=== PATIENT | male | born 1955 | race African-American/Black ===

== ENCOUNTER 2019-05-19 10:00 | Inpatient (IN) | payer MEDICARE, MEDICAID ==
[~2019-05-19] VITALS: Ht 170.2 cm; Wt 88.6 kg
[2019-05-19] MEDS ORDERED: SODIUM CHLORIDE 0.9% 1000ML BAG (SEPSIS BOLUS) IV ONE (10:30)
[2019-05-19 10:57] LABS: HEMATOCRIT. 32.6 % (42.0-52.0); HEMOGLOBIN. 11.2 g/dL (14.0-18.0); MEAN CORPUSCULAR HEMOGLOBIN 31.1 pg (28.0-32.0); MEAN CORPUSCULAR VOLUME 90.4 fL (80.0-94.0); MEAN PLATELET VOLUME 8.5 fl (7.4-10.4); PLATELET 260 x1000/uL (130-400); RED BLOOD CELL COUNT 3.61 mill/uL (4.7-6.1); RED CELL DISTRIBUTION WIDTH 15.2 % (11.6-14.6)
[2019-05-19 11:02] LABS: CHLORIDE 111 mEq/L (98-107)
[2019-05-19] MEDS ORDERED: PERMETHRIN 5% CREAM 60GM TOP ONE (11:15)
[2019-05-19 11:23] LABS: PLATELET ESTIMATE NORMAL
[2019-05-19] MEDS ORDERED: ONDANSETRON HCL 4MG/2ML INJ IV PRN (11:30)
[2019-05-19 11:45] LABS: CLARITY URINE CLEAR (CLEAR); COLOR URINE YELLOW (YELLOW); KETONES URINE NEGATIVE (NEGATIVE); LEUKOCYTE ESTERASE URINE NEGATIVE (NEGATIVE); NITRITE URINE NEGATIVE (NEGATIVE); OCCULT BLOOD URINE 1+ (NEGATIVE); PROTEIN URINE NEGATIVE (NEGATIVE); SPECIFIC GRAVITY URINE 1.009 (1.005-1.030); UROBILINOGEN URINE 0.2 E.U./dL (0.2-1.0)
[2019-05-19] MEDS ORDERED: MAGNESIUM 1 G PREMIX 100 ML IV ONE (12:00)
[2019-05-19] MEDS ORDERED: LEVOFLOXACIN 500MG PREMIX 100 ML IV ONE (12:00)
[2019-05-19 12:06] LABS: *BARBITURATES SCREEN URINE NEGATIVE (NEGATIVE); *BENZODIAZEPINES SCREEN URINE NEGATIVE (NEGATIVE); *COCAINE SCREEN URINE NEGATIVE (NEGATIVE)
[2019-05-19 12:07] LABS: *AMPHETAMINES SCREEN URINE NEGATIVE (NEGATIVE); CANNABINOID URINE SCREEN NEGATIVE (NEGATIVE); METHADONE URINE SCREEN NEGATIVE (NEGATIVE); OPIATES URINE SCREEN NEGATIVE (NEGATIVE); PHENCYCLIDINE URINE SCREEN NEGATIVE (NEGATIVE)
[2019-05-19] MEDS ORDERED: PIPERACILLIN/TAZ 2.25G PREMIX 50 ML IV ONE (14:00)
[2019-05-19 15:00] VITALS: BP 133/76
[2019-05-19] MEDS: DEXT 5%/0.45% NACL 1000ML 1,000 ML IV SCH (15:43)
[2019-05-19 16:00] VITALS: BP 133/76
[2019-05-19] MEDS ORDERED: HALOPERIDOL LACTATE 5MG/ML VIAL IM PRN (16:30)
[2019-05-19] MEDS ORDERED: LEVOFLOXACIN 500MG PREMIX 100 ML IV SCH (17:00)
[2019-05-19] MEDS ORDERED: MAGNESIUM 1 G PREMIX 100 ML IV NR (17:30)
[2019-05-19 18:00] VITALS: BP 134/55
[2019-05-19 20:00] VITALS: BP 134/74
[2019-05-19] MEDS: PIPERACILLIN/TAZOBACTAM 3.375 G in DEXT 5% WATER 100 ML IV SCH (20:39)
[2019-05-19] MEDS: ACETAMINOPHEN 650MG SUPP PR PRN (21:59)
[2019-05-19 22:00] VITALS: BP 181/66
[2019-05-20] VITALS (13 sets, daily range): BP systolic 140–189; BP diastolic 65–106
[2019-05-20] MEDS: PIPERACILLIN/TAZOBACTAM 3.375 G in DEXT 5% WATER 100 ML IV SCH ×3 (00:08→12:12)
[2019-05-20] MEDS: ACETYLCYSTEINE 100MG/ML 10% VIAL 4ML INH SCH (00:21)
[2019-05-20] MEDS ORDERED: CLON0.5T23 MT (03:19)
[2019-05-20] MEDS ORDERED: BENZ1TAB7 MT (03:19)
[2019-05-20] MEDS ORDERED: FERR325T6 MT (03:19)
[2019-05-20] MEDS ORDERED: OMEP20CA5 MT (03:19)
[2019-05-20] MEDS ORDERED: ISOS30TA6 MT (03:19)
[2019-05-20] MEDS ORDERED: LITH300C3 MT (03:19)
[2019-05-20] MEDS ORDERED: FLUT15.88 BOTHNSTRLS (03:19)
[2019-05-20] MEDS ORDERED: METF-416 MT (03:19)
[2019-05-20] MEDS ORDERED: GEMF600T5 MT (03:19)
[2019-05-20] MEDS ORDERED: OMEP20TA2 MT (03:19)
[2019-05-20] MEDS ORDERED: HALO5TAB MT (03:19)
[2019-05-20] MEDS ORDERED: DOCU250C69 MT (03:19)
[2019-05-20] MEDS ORDERED: CLON0.2T MT (03:19)
[2019-05-20] MEDS ORDERED: GABA-531 MT (03:19)
[2019-05-20] MEDS: LORAZEPAM 2MG/ML CPJ IV PRN ×3 (05:38→18:04)
[2019-05-20] MEDS: DEXT 5%/0.45% NACL 1000ML 1,000 ML IV SCH ×2 (06:21→23:55)
[2019-05-20 06:26] LABS: CHLORIDE 118 mEq/L (98-107)
[2019-05-20 06:29] LABS: BASOPHILS % 0.1 % (0.0-2.0); EOSINOPHILS % 0.6 % (0.0-5.0); HEMATOCRIT. 36.7 % (42.0-52.0); HEMOGLOBIN. 12.4 g/dL (14.0-18.0); LYMPHOCYTES % 11.2 % (20.0-50.0); MEAN CORPUSCULAR HEMOGLOBIN 30.6 pg (28.0-32.0); MEAN CORPUSCULAR VOLUME 90.8 fL (80.0-94.0); MEAN PLATELET VOLUME 8.8 fl (7.4-10.4); MONOCYTES % 7.1 % (2.0-8.0); PLATELET 272 x1000/uL (130-400); RED BLOOD CELL COUNT 4.04 mill/uL (4.7-6.1)
[2019-05-20] MEDS: IPRATROPIUM BROMIDE (0.02%) 0.5MG/2.5ML NEB HHN SCH ×3 (11:22→21:32)
[2019-05-20] MEDS: ACETAMINOPHEN 650MG SUPP PR PRN (12:12)
[2019-05-20] MEDS: FUROSEMIDE 40MG/4ML VIAL IVP SCH (13:40)
[2019-05-20] MEDS ORDERED: MAGNESIUM 1 G PREMIX 100 ML IV NR (14:00)
[2019-05-20] MEDS: CLONIDINE HCL 0.2MG/24HR PATCH TD SCH (15:34)
[2019-05-20 16:02] LABS: BG BASE EXCESS -5.5 mmol/L (-2.0-2.0); BG CARBOXYHEMOGLOBIN 0.2 % (0.5-1.5); BG DEOXYHEMOGLOBIN 7.7 % (0.0-5.0); BG FRACTION INSPIRED OXYGEN 32; BG HCO3 ACT 15.5 mmol/L (22.0-26.0); BG METHEMOGLOBIN 0.2 % (0.0-1.5); BG OXYGEN SATURATION 92.3 % (92.0-98.5); BG OXYHEMOGLOBIN 91.9 % (94.0-97.0); BG PH 7.487 (7.350-7.450); BG PO2 57.3 mmHg (75.0-100.0); BG SAMPLE SITE RIGHT RADIAL; BG TOTAL HEMOGLOBIN 14.1 g/dL (12.0-18.0); BG VENT MODE NASAL CANNULA
[2019-05-20] MEDS: HYDRALAZINE 20MG/ML VIAL IV PRN (16:13)
[2019-05-20] MEDS ORDERED: VANCOMYCIN 1500MG in DEXTROSE 5% WATER 250ML IV NR (17:30)
[2019-05-20] MEDS ORDERED: LEVOFLOXACIN 500MG PREMIX 100 ML IV SCH (18:00)
[2019-05-20] MEDS ORDERED: CEFTRIAXONE 2 G PREMIX 50 ML IV SCH (21:00)
[2019-05-20] MEDS: LABETALOL 5MG/ML SYR 20 MG/4 ML SYRINGE IV PRN (21:02)
[2019-05-20] MEDS ORDERED: THIAMINE HCL 100 MG in SODIUM CHLORIDE 0.9% 49 ML IV NR (21:30)
[2019-05-20] MEDS: CEFTRIAXONE 2 G in DEXTROSE 5% WATER 50 ML IV SCH (21:36)
[2019-05-20] MEDS: ENOXAPARIN 30MG/0.3ML SYR SUBCUT SCH (21:37)
[2019-05-20] MEDS: AMPICILLIN 2,000 MG in SODIUM CHLORIDE 0.9% 100 ML IV SCH (22:49)
[2019-05-21] VITALS (12 sets, daily range): BP systolic 108–178; BP diastolic 48–131
[2019-05-21] MEDS: IPRATROPIUM BROMIDE (0.02%) 0.5MG/2.5ML NEB HHN SCH ×6 (00:21→20:37)
[2019-05-21] MEDS: HALOPERIDOL LACTATE 5MG/ML VIAL IM PRN ×2 (00:38→21:32)
[2019-05-21] MEDS: AMPICILLIN 2,000 MG in SODIUM CHLORIDE 0.9% 100 ML IV SCH ×3 (05:31→21:34)
[2019-05-21] MEDS ORDERED: VANCOMYCIN 1250MG in DEXTROSE 5% WATER 250ML IV SCH (06:00)
[2019-05-21] MEDS: HYDRALAZINE 20MG/ML VIAL IV PRN ×2 (06:06→13:15)
[2019-05-21] MEDS: ACETAMINOPHEN 650MG SUPP PR PRN ×2 (06:19→17:08)
[2019-05-21 06:49] LABS: HEMOGLOBIN. 13.5 g/dL (14.0-18.0); MEAN PLATELET VOLUME 9.5 fl (7.4-10.4); PLATELET 350 x1000/uL (130-400); RED CELL DISTRIBUTION WIDTH 14.6 % (11.6-14.6)
[2019-05-21 07:05] LABS: CHLORIDE 124 mEq/L (98-107)
[2019-05-21 07:36] LABS: CREATINE KINASE 1122 IU/L (39-308)
[2019-05-21] MEDS: ACETYLCYSTEINE 100MG/ML 10% VIAL 4ML INH SCH ×3 (08:00→16:23)
[2019-05-21] MEDS: ENOXAPARIN 30MG/0.3ML SYR SUBCUT SCH ×2 (08:50→20:34)
[2019-05-21] MEDS: CEFTRIAXONE 2 G in DEXTROSE 5% WATER 50 ML IV SCH ×2 (08:50→20:34)
[2019-05-21] MEDS: LABETALOL 5MG/ML SYR 20 MG/4 ML SYRINGE IV PRN ×2 (08:50→17:46)
[2019-05-21] MEDS: FUROSEMIDE 40MG/4ML VIAL IVP SCH (08:50)
[2019-05-21 10:05] LABS: T4 FREE 1.19 ng/dL (0.76-1.46)
[2019-05-21 12:49] LABS: PLATELET ESTIMATE NORMAL
[2019-05-21] MEDS: DEXT 5% WATER + KCL 20MEQ/L 1,000 ML IV SCH (12:53)
[2019-05-21 16:34] LABS: CREATINE KINASE MB FRACTION 2.9 ng/mL (0.5-3.6)
[2019-05-21] MEDS ORDERED: ASPIRIN 81MG TABLET PO SCH (18:00)
[2019-05-21 18:40] LABS: CREATINE KINASE MB FRACTION 1.7 ng/mL (0.5-3.6)
[2019-05-21] MEDS: ASPIRIN 81MG TABLET NG SCH (18:55)
[2019-05-21] MEDS ORDERED: SODIUM BICARBONATE 8.4% 1 MEQ/ML 50ML SYR IV NR (19:00)
[2019-05-21] MEDS: LORAZEPAM 2MG/ML CPJ IV PRN (20:35)
[2019-05-21] MEDS: METOPROLOL TARTRATE 25MG TABLET PO SCH (20:41)
[2019-05-21] MEDS ORDERED: ATORVASTATIN CALCIUM 10MG TABLET PO SCH (21:00)
[2019-05-22] VITALS (14 sets, daily range): BP systolic 146–185; BP diastolic 80–99
[2019-05-22] MEDS: IPRATROPIUM/ALBUTEROL 0.5-3(2.5)MG/3ML NEB HHN PRN (00:33)
[2019-05-22] MEDS: ACETYLCYSTEINE 100MG/ML 10% VIAL 4ML INH SCH ×3 (00:33→16:27)
[2019-05-22 00:42] LABS: CREATINE KINASE MB FRACTION 1.5 ng/mL (0.5-3.6)
[2019-05-22] MEDS: DEXT 5% WATER + KCL 20MEQ/L 1,000 ML IV SCH ×3 (02:09→21:32)
[2019-05-22] MEDS: HYDRALAZINE 20MG/ML VIAL IV PRN (02:12)
[2019-05-22] MEDS: IPRATROPIUM BROMIDE (0.02%) 0.5MG/2.5ML NEB HHN SCH ×4 (03:33→20:15)
[2019-05-22] MEDS: LABETALOL 5MG/ML SYR 20 MG/4 ML SYRINGE IV PRN (05:18)
[2019-05-22] MEDS: AMPICILLIN 2,000 MG in SODIUM CHLORIDE 0.9% 100 ML IV SCH ×3 (05:25→23:51)
[2019-05-22 06:44] LABS: HEMATOCRIT. 39.4 % (42.0-52.0); HEMOGLOBIN. 13.2 g/dL (14.0-18.0); MEAN CORPUSCULAR HEMOGLOBIN 29.7 pg (28.0-32.0); MEAN CORPUSCULAR VOLUME 88.5 fL (80.0-94.0); MEAN PLATELET VOLUME 9.6 fl (7.4-10.4); PLATELET 329 x1000/uL (130-400); RED BLOOD CELL COUNT 4.46 mill/uL (4.7-6.1); RED CELL DISTRIBUTION WIDTH 14.8 % (11.6-14.6)
[2019-05-22 06:56] LABS: CREATINE KINASE MB FRACTION < 1.0 ng/mL (0.5-3.6)
[2019-05-22 07:07] LABS: CREATINE KINASE 1324 IU/L (39-308)
[2019-05-22 07:22] LABS: CHLORIDE 129 mEq/L (98-107); PHOSPHORUS 0.9 mg/dL (2.5-4.9)
[2019-05-22] MEDS: FUROSEMIDE 40MG/4ML VIAL IVP SCH (08:53)
[2019-05-22] MEDS: ASPIRIN 81MG TABLET NG SCH (08:53)
[2019-05-22] MEDS: ENOXAPARIN 30MG/0.3ML SYR SUBCUT SCH (08:54)
[2019-05-22] MEDS ORDERED: VANCOMYCIN 1250MG in DEXTROSE 5% WATER 250ML IV SCH (09:00)
[2019-05-22 09:07] LABS: HIV SCREEN 4G Non Reactive (Non Reactive)
[2019-05-22] MEDS: CEFTRIAXONE 2 G in DEXTROSE 5% WATER 50 ML IV SCH ×2 (09:16→21:28)
[2019-05-22] MEDS: METOPROLOL TARTRATE 25MG TABLET PO SCH ×2 (09:17→21:30)
[2019-05-22] MEDS ORDERED: POTASSIUM CHLORIDE 20MEQ/PACKET PO NR (09:30)
[2019-05-22] MEDS: ACETAMINOPHEN 650MG SUPP PR PRN (09:43)
[2019-05-22] MEDS: POTASSIUM-SODIUM PHOSPHATE POWDER PACKET NG SCH ×5 (09:58→21:29)
[2019-05-22] MEDS: ACETAMINOPHEN 650MG/20.3ML UDC NG PRN ×2 (11:00→21:33)
[2019-05-22] MEDS ORDERED: DOXYCYCLINE HYCLATE 100MG CAPSULE PO SCH (15:00)
[2019-05-22 19:23] LABS: PLATELET ESTIMATE NORMAL
[2019-05-23] VITALS (13 sets, daily range): BP systolic 113–154; BP diastolic 76–95
[2019-05-23] MEDS: DOXYCYCLINE HYCLATE 100MG CAPSULE PO SCH ×3 (01:37→20:18)
[2019-05-23] MEDS: IPRATROPIUM BROMIDE (0.02%) 0.5MG/2.5ML NEB HHN SCH ×6 (02:23→20:30)
[2019-05-23] MEDS: ACETYLCYSTEINE 100MG/ML 10% VIAL 4ML INH SCH ×2 (02:23→12:09)
[2019-05-23] MEDS: ACETAMINOPHEN 650MG/20.3ML UDC NG PRN (03:54)
[2019-05-23] MEDS: AMPICILLIN 2,000 MG in SODIUM CHLORIDE 0.9% 100 ML IV SCH ×3 (06:20→21:25)
[2019-05-23 07:21] LABS: HEMATOCRIT. 41.3 % (42.0-52.0); HEMOGLOBIN. 13.5 g/dL (14.0-18.0); MEAN CORPUSCULAR HEMOGLOBIN 29.8 pg (28.0-32.0); MEAN CORPUSCULAR VOLUME 91.3 fL (80.0-94.0); MEAN PLATELET VOLUME 10.1 fl (7.4-10.4); PLATELET 261 x1000/uL (130-400); RED BLOOD CELL COUNT 4.53 mill/uL (4.7-6.1); RED CELL DISTRIBUTION WIDTH 15.5 % (11.6-14.6)
[2019-05-23] MEDS ORDERED: ENOXAPARIN 40MG/0.4ML SYR SUBCUT SCH (09:00)
[2019-05-23] MEDS: POTASSIUM-SODIUM PHOSPHATE POWDER PACKET NG SCH ×6 (09:04→20:02)
[2019-05-23] MEDS: DEXT 5% WATER + KCL 20MEQ/L 1,000 ML IV SCH ×3 (09:05→17:46)
[2019-05-23] MEDS: CEFTRIAXONE 2 G in DEXTROSE 5% WATER 50 ML IV SCH ×2 (09:05→20:30)
[2019-05-23] MEDS: PANTOPRAZOLE SODIUM 40 MG/VIAL IV SCH (10:00)
[2019-05-23] MEDS: METOPROLOL TARTRATE 25MG TABLET PO SCH ×2 (10:03→20:18)
[2019-05-23 10:40] LABS: PLATELET ESTIMATE NORMAL
[2019-05-23] MEDS ORDERED: VANCOMYCIN 1250MG in DEXTROSE 5% WATER 250ML IV NR ×2 (11:00→18:00)
[2019-05-23] MEDS ORDERED: POTASSIUM CHLORIDE INJ 40 MEQ in DEXT 5% WATER 250 ML IV SCH (12:00)
[2019-05-23 12:14] LABS: HEPATITIS B SURFACE ANTIGEN NEGATIVE
[2019-05-23 14:36] LABS: BG CARBOXYHEMOGLOBIN 0.2 % (0.5-1.5); BG DEOXYHEMOGLOBIN 15.4 % (0.0-5.0); BG FRACTION INSPIRED OXYGEN 21; BG HCO3 ACT 18.2 mmol/L (22.0-26.0); BG METHEMOGLOBIN 0.8 % (0.0-1.5); BG OXYGEN SATURATION 84.4 % (92.0-98.5); BG OXYHEMOGLOBIN 83.6 % (94.0-97.0); BG PCO2 26.2 mmHg (35.0-45.0); BG PH 7.459 (7.350-7.450); BG PO2 47.7 mmHg (75.0-100.0); BG SAMPLE SITE RIGHT BRACHIAL; BG TOTAL HEMOGLOBIN 14.1 g/dL (12.0-18.0); BG VENT MODE ROOM AIR
[2019-05-23] MEDS ORDERED: NON FORMULARY PATIENT HOME MED XX SCH (14:45)
[2019-05-23] MEDS: DEXTROSE 5% WATER 1,000 ML IV SCH ×2 (15:02→17:46)
[2019-05-23] MEDS: POLYVINYL ALCOHOL OPHTH DROPS 15ML BOTHEYE SCH ×2 (17:44→23:14)
[2019-05-23 17:52] LABS: HEMATOCRIT 46.1 % (42.0-52.0); HEMOGLOBIN 14.9 g/dL (14.0-18.0)
[2019-05-23] MEDS ORDERED: POLYVINYL ALCOHOL OPHTH DROPS 15ML BOTHEYE SCH (18:00)
[2019-05-23 18:08] LABS: PHOSPHORUS 3.4 mg/dL (2.5-4.9)
[2019-05-23 18:21] LABS: FOLIC ACID (FOLATE) SERUM >20 ng/mL ng/mL (>5.38)
[2019-05-23 18:27] LABS: FERRITIN 299 ng/mL (22-322)
[2019-05-23 18:32] LABS: VITAMIN B12 SERUM >2000 pg/mL pg/mL (211-911)
[2019-05-24] VITALS (12 sets, daily range): BP systolic 133–151; BP diastolic 77–86
[2019-05-24] MEDS: ACETYLCYSTEINE 100MG/ML 10% VIAL 4ML INH SCH ×3 (00:22→16:31)
[2019-05-24] MEDS: IPRATROPIUM BROMIDE (0.02%) 0.5MG/2.5ML NEB HHN SCH ×6 (00:23→20:09)
[2019-05-24 00:59] LABS: HEMOGLOBIN 13.4 g/dL (14.0-18.0)
[2019-05-24] MEDS: DEXTROSE 5% WATER 1,000 ML IV SCH ×3 (02:02→17:55)
[2019-05-24] MEDS: AMPICILLIN 2,000 MG in SODIUM CHLORIDE 0.9% 100 ML IV SCH ×3 (05:14→21:23)
[2019-05-24] MEDS: POLYVINYL ALCOHOL OPHTH DROPS 15ML BOTHEYE SCH ×3 (05:15→17:55)
[2019-05-24 07:00] LABS: HEMATOCRIT. 38.5 % (42.0-52.0); HEMOGLOBIN. 12.6 g/dL (14.0-18.0); MEAN CORPUSCULAR HEMOGLOBIN 29.6 pg (28.0-32.0); MEAN PLATELET VOLUME 10.8 fl (7.4-10.4); PLATELET 253 x1000/uL (130-400); RED BLOOD CELL COUNT 4.28 mill/uL (4.7-6.1); RED CELL DISTRIBUTION WIDTH 15.4 % (11.6-14.6)
[2019-05-24 07:18] LABS: PHOSPHORUS 3.4 mg/dL (2.5-4.9)
[2019-05-24 08:06] LABS: BG BASE EXCESS -1.8 mmol/L (-2.0-2.0); BG CARBOXYHEMOGLOBIN 0.3 % (0.5-1.5); BG DEOXYHEMOGLOBIN 3.3 % (0.0-5.0); BG FRACTION INSPIRED OXYGEN 99.8; BG HCO3 ACT 21.7 mmol/L (22.0-26.0); BG METHEMOGLOBIN 0.2 % (0.0-1.5); BG OXYGEN SATURATION 96.7 % (92.0-98.5); BG OXYHEMOGLOBIN 96.2 % (94.0-97.0); BG PH 7.436 (7.350-7.450); BG PO2 90.7 mmHg (75.0-100.0); BG SAMPLE SITE RIGHT RADIAL; BG TOTAL HEMOGLOBIN 12.7 g/dL (12.0-18.0); BG VENT MODE MASK - NRB
[2019-05-24] MEDS: METOPROLOL TARTRATE 25MG TABLET PO SCH (09:03)
[2019-05-24] MEDS: DOXYCYCLINE HYCLATE 100MG CAPSULE PO SCH ×2 (09:03→21:00)
[2019-05-24] MEDS: PANTOPRAZOLE SODIUM 40 MG/VIAL IV SCH (09:03)
[2019-05-24] MEDS: CEFTRIAXONE 2 G in DEXTROSE 5% WATER 50 ML IV SCH ×2 (09:03→21:22)
[2019-05-24] MEDS ORDERED: POTASSIUM CHLORIDE INJ 40 MEQ in DEXT 5% WATER 250 ML IV SCH (10:00)
[2019-05-24] MEDS ORDERED: VANCOMYCIN 1 G PREMIX 200 ML IV SCH (12:00)
[2019-05-24 13:04] LABS: NUCLEATED RED BLOOD CELLS 1 /100 WBC
[2019-05-24 13:05] LABS: PLATELET ESTIMATE NORMAL
[2019-05-24] MEDS: ACETAMINOPHEN 650MG/20.3ML UDC NG PRN (16:37)
[2019-05-24 17:11] LABS: ANTI-NUCLEAR ANTIBODIES DIRECT Negative (Negative)
[2019-05-24] MEDS: METOPROLOL TARTRATE 50MG TABLET PO SCH (21:00)
[2019-05-25] VITALS (15 sets, daily range): BP systolic 124–142; BP diastolic 65–76
[2019-05-25] MEDS: ACETYLCYSTEINE 100MG/ML 10% VIAL 4ML INH SCH ×3 (00:47→15:50)
[2019-05-25] MEDS: IPRATROPIUM BROMIDE (0.02%) 0.5MG/2.5ML NEB HHN SCH ×7 (00:48→23:57)
[2019-05-25] MEDS: POLYVINYL ALCOHOL OPHTH DROPS 15ML BOTHEYE SCH ×5 (02:30→23:51)
[2019-05-25] MEDS: DEXTROSE 5% WATER 1,000 ML IV SCH ×3 (02:59→18:36)
[2019-05-25] MEDS: AMPICILLIN 2,000 MG in SODIUM CHLORIDE 0.9% 100 ML IV SCH ×3 (05:03→21:05)
[2019-05-25 06:21] LABS: CHLORIDE 123 mEq/L (98-107)
[2019-05-25] MEDS: PANTOPRAZOLE SODIUM 40 MG/VIAL IV SCH (08:59)
[2019-05-25] MEDS: CEFTRIAXONE 2 G in DEXTROSE 5% WATER 50 ML IV SCH ×2 (08:59→21:05)
[2019-05-25] MEDS: METOPROLOL TARTRATE 50MG TABLET PO SCH ×2 (09:00→21:05)
[2019-05-25] MEDS: DOXYCYCLINE HYCLATE 100MG CAPSULE PO SCH ×2 (09:00→21:05)
[2019-05-25 15:14] LABS: ANTI-MYELOPEROXIDASE AB < 9.0 U/mL (0.0-9.0); ANTI-PROTEINASE 3 ABS < 3.5 U/mL (0.0-3.5)
[2019-05-25] MEDS: DESMOPRESSIN ACETATE 4MCG/ML AMP IV SCH (21:31)
[2019-05-26] VITALS (8 sets, daily range): BP systolic 111–135; BP diastolic 53–72
[2019-05-26] MEDS: DEXTROSE 5% WATER 1,000 ML IV SCH ×2 (03:29→12:22)
[2019-05-26] MEDS: IPRATROPIUM BROMIDE (0.02%) 0.5MG/2.5ML NEB HHN SCH ×4 (04:06→20:47)
[2019-05-26] MEDS: AMPICILLIN 2,000 MG in SODIUM CHLORIDE 0.9% 100 ML IV SCH (05:45)
[2019-05-26] MEDS: POLYVINYL ALCOHOL OPHTH DROPS 15ML BOTHEYE SCH ×4 (05:46→23:37)
[2019-05-26] MEDS: METRONIDAZOLE 500 MG PREMIX 100 ML IV SCH ×3 (06:47→17:20)
[2019-05-26 06:52] LABS: HEMATOCRIT. 31.2 % (42.0-52.0); HEMOGLOBIN. 10.1 g/dL (14.0-18.0); MEAN CORPUSCULAR HEMOGLOBIN 29.6 pg (28.0-32.0); MEAN CORPUSCULAR VOLUME 91.5 fL (80.0-94.0); MEAN PLATELET VOLUME 11.5 fl (7.4-10.4); PLATELET 260 x1000/uL (130-400); RED BLOOD CELL COUNT 3.41 mill/uL (4.7-6.1); RED CELL DISTRIBUTION WIDTH 15.5 % (11.6-14.6)
[2019-05-26 07:37] LABS: CHLORIDE 120 mEq/L (98-107)
[2019-05-26] MEDS: CEFTRIAXONE 2 G in DEXTROSE 5% WATER 50 ML IV SCH (09:02)
[2019-05-26] MEDS: DOXYCYCLINE HYCLATE 100MG CAPSULE PO SCH ×2 (09:02→20:40)
[2019-05-26] MEDS: METOPROLOL TARTRATE 50MG TABLET PO SCH ×2 (09:02→20:40)
[2019-05-26] MEDS: DESMOPRESSIN ACETATE 4MCG/ML AMP IV SCH ×2 (09:02→20:40)
[2019-05-26] MEDS: PANTOPRAZOLE SODIUM 40 MG/VIAL IV SCH (09:03)
[2019-05-26 09:39] LABS: PLATELET ESTIMATE NORMAL
[2019-05-26 13:14] LABS: A/G RATIO 0.7 (0.7-1.7); ALBUMIN 2.7 g/dL (2.9-4.4); ALPHA-1-GLOBULIN 0.6 g/dL (0.0-0.4); ALPHA-2-GLOBULIN 1.4 g/dL (0.4-1.0); BETA GLOBULIN 1.1 g/dL (0.7-1.3); GAMMA GLOBULINS 0.8 g/dL (0.4-1.8); GLOBULIN TOTAL 3.9 g/dL (2.2-3.9); M-SPIKE Not Observed g/dL (Not Observed); TOTAL PROTEIN SERUM 6.6 g/dL (6.0-8.5); VITAMIN D 1-25 DIHYDROXY 79.5 pg/mL (19.9-79.3)
[2019-05-26 13:14] LABS: ATYPICAL P-ANCA <1:20 titer (Neg:<1:20); CYTOPLASMIC C-ANCA <1:20 titer (Neg:<1:20); PERINUCLEAR P-ANCA <1:20 titer (Neg:<1:20)
[2019-05-26 13:34] LABS: BG BASE EXCESS 1.8 mmol/L (-2.0-2.0); BG CARBOXYHEMOGLOBIN 0.3 % (0.5-1.5); BG DEOXYHEMOGLOBIN 3.9 % (0.0-5.0); BG FRACTION INSPIRED OXYGEN 100; BG HCO3 ACT 26.3 mmol/L (22.0-26.0); BG METHEMOGLOBIN 0.2 % (0.0-1.5); BG OXYGEN SATURATION 96.1 % (92.0-98.5); BG OXYHEMOGLOBIN 95.6 % (94.0-97.0); BG PH 7.425 (7.350-7.450); BG PO2 88.3 mmHg (75.0-100.0); BG SAMPLE SITE RIGHT RADIAL; BG TOTAL HEMOGLOBIN 11.9 g/dL (12.0-18.0); BG VENT MODE MASK - NRB
[2019-05-26] MEDS: IPRATROPIUM/ALBUTEROL 0.5-3(2.5)MG/3ML NEB HHN PRN (15:31)
[2019-05-26] MEDS ORDERED: VANCOMYCIN 1 G PREMIX 200 ML IV NR (17:00)
[2019-05-26] MEDS: CEFEPIME 1,000 MG in DEXTROSE 5% WATER 50 ML IV SCH (18:53)
[2019-05-26] MEDS: ACETAMINOPHEN 650MG/20.3ML UDC NG PRN (20:39)
[2019-05-26] MEDS: ACETYLCYSTEINE 100MG/ML 10% VIAL 4ML INH SCH (20:48)
[2019-05-27] VITALS (45 sets, daily range): BP systolic 93–136; BP diastolic 50–74
[2019-05-27] MEDS: IPRATROPIUM BROMIDE (0.02%) 0.5MG/2.5ML NEB HHN SCH ×7 (00:55→23:46)
[2019-05-27] MEDS: METRONIDAZOLE 500 MG PREMIX 100 ML IV SCH ×2 (05:14→18:32)
[2019-05-27] MEDS: POLYVINYL ALCOHOL OPHTH DROPS 15ML BOTHEYE SCH ×4 (05:18→23:48)
[2019-05-27 07:00] LABS: CHLORIDE 121 mEq/L (98-107)
[2019-05-27 07:04] LABS: HEMATOCRIT. 28.9 % (42.0-52.0); HEMOGLOBIN. 9.3 g/dL (14.0-18.0); MEAN CORPUSCULAR HEMOGLOBIN 29.4 pg (28.0-32.0); MEAN CORPUSCULAR VOLUME 91.7 fL (80.0-94.0); MEAN PLATELET VOLUME 11.5 fl (7.4-10.4); PLATELET 302 x1000/uL (130-400); RED BLOOD CELL COUNT 3.15 mill/uL (4.7-6.1); RED CELL DISTRIBUTION WIDTH 15.7 % (11.6-14.6)
[2019-05-27 07:07] LABS: PHOSPHORUS 4.3 mg/dL (2.5-4.9)
[2019-05-27] MEDS: ACETYLCYSTEINE 100MG/ML 10% VIAL 4ML INH SCH ×2 (07:38→15:44)
[2019-05-27] MEDS: PANTOPRAZOLE SODIUM 40 MG/VIAL IV SCH (08:53)
[2019-05-27] MEDS: DESMOPRESSIN ACETATE 4MCG/ML AMP IV SCH ×2 (08:54→21:15)
[2019-05-27] MEDS: METOPROLOL TARTRATE 50MG TABLET PO SCH ×2 (08:54→21:18)
[2019-05-27] MEDS: DOXYCYCLINE HYCLATE 100MG CAPSULE PO SCH ×2 (08:54→21:16)
[2019-05-27] MEDS: DEXTROSE 5% WATER 1,000 ML IV SCH ×2 (08:55→18:43)
[2019-05-27] MEDS: CLONIDINE HCL 0.2MG/24HR PATCH TD SCH (09:00)
[2019-05-27 10:19] LABS: INR 2.4; PROTHROMBIN TIME 23.8 sec (9.6-11.0)
[2019-05-27 10:33] LABS: PLATELET ESTIMATE NORMAL
[2019-05-27] MEDS ORDERED: ETOMIDATE 2MG/ML 10ML VIAL IV ONE (13:38)
[2019-05-27] MEDS ORDERED: VECURONIUM BROMIDE 10 MG/VIAL IV ONE (13:38)
[2019-05-27] MEDS ORDERED: PROPOFOL 10MG/ML 100ML 100 ML IV PRN (13:45)
[2019-05-27] MEDS ORDERED: NOREPINEPHRINE 8 MG in DEXT 5% WATER 242 ML IV PRN (14:00)
[2019-05-27 16:16] LABS: BG CARBOXYHEMOGLOBIN 0.2 % (0.5-1.5); BG DEOXYHEMOGLOBIN 6.5 % (0.0-5.0); BG FRACTION INSPIRED OXYGEN 100; BG METHEMOGLOBIN 0.3 % (0.0-1.5); BG OXYGEN SATURATION 93.5 % (92.0-98.5); BG PCO2 56.6 mmHg (35.0-45.0); BG PH 7.297 (7.350-7.450); BG PO2 80.9 mmHg (75.0-100.0); BG SAMPLE SITE RIGHT BRACHIAL; BG TIDAL VOLUME(mL) 500 mL; BG TOTAL HEMOGLOBIN 9.9 g/dL (12.0-18.0); BG VENT MODE VENT - A/C; BG VENT RATE 14 set
[2019-05-27] MEDS: CEFEPIME 1,000 MG in DEXTROSE 5% WATER 50 ML IV SCH (18:31)
[2019-05-27] MEDS: SUCRALFATE 1 G/10 ML UDC NG SCH ×2 (18:32→21:16)
[2019-05-28] VITALS (84 sets, daily range): BP systolic 87–139; BP diastolic 47–78
[2019-05-28] MEDS: ACETYLCYSTEINE 100MG/ML 10% VIAL 4ML INH SCH ×4 (04:16→17:18)
[2019-05-28] MEDS: IPRATROPIUM BROMIDE (0.02%) 0.5MG/2.5ML NEB HHN SCH ×6 (04:17→19:43)
[2019-05-28] MEDS: DEXTROSE 5% WATER 1,000 ML IV SCH ×4 (04:26→22:20)
[2019-05-28] MEDS: POLYVINYL ALCOHOL OPHTH DROPS 15ML BOTHEYE SCH ×3 (05:43→17:14)
[2019-05-28] MEDS: METRONIDAZOLE 500 MG PREMIX 100 ML IV SCH ×2 (05:43→17:14)
[2019-05-28] MEDS: SUCRALFATE 1 G/10 ML UDC NG SCH ×4 (07:10→22:30)
[2019-05-28] MEDS: METOPROLOL TARTRATE 50MG TABLET PO SCH ×2 (08:07→22:30)
[2019-05-28] MEDS: PANTOPRAZOLE SODIUM 40 MG/VIAL IV SCH (08:07)
[2019-05-28] MEDS: DOXYCYCLINE HYCLATE 100MG CAPSULE PO SCH ×2 (08:07→22:29)
[2019-05-28] MEDS: DESMOPRESSIN ACETATE 4MCG/ML AMP IV SCH ×2 (08:08→22:30)
[2019-05-28] MEDS: ACETAMINOPHEN 650MG/20.3ML UDC NG PRN (08:18)
[2019-05-28 08:26] LABS: HEMATOCRIT. 26.6 % (42.0-52.0); HEMOGLOBIN. 8.5 g/dL (14.0-18.0); MEAN CORPUSCULAR HEMOGLOBIN 29.5 pg (28.0-32.0); MEAN CORPUSCULAR VOLUME 92.1 fL (80.0-94.0); MEAN PLATELET VOLUME 11.5 fl (7.4-10.4); PLATELET 295 x1000/uL (130-400); RED BLOOD CELL COUNT 2.89 mill/uL (4.7-6.1); RED CELL DISTRIBUTION WIDTH 15.3 % (11.6-14.6)
[2019-05-28] MEDS ORDERED: DEXTROSE 50% WATER 50ML SYRINGE IV PRN (09:15)
[2019-05-28 10:00] LABS: INR 2.6; PROTHROMBIN TIME 25.2 sec (9.6-11.0)
[2019-05-28] MEDS ORDERED: LIDOCAINE HCL 1% 20ML VIAL (Pyxis) INJ ONE ×2 (10:14→10:31)
[2019-05-28 10:17] LABS: PLATELET ESTIMATE NORMAL
[2019-05-28 10:35] LABS: BG BASE EXCESS 1.5 mmol/L (-2.0-2.0); BG CARBOXYHEMOGLOBIN 0.3 % (0.5-1.5); BG DEOXYHEMOGLOBIN 0.7 % (0.0-5.0); BG FRACTION INSPIRED OXYGEN 100; BG HCO3 ACT 26.5 mmol/L (22.0-26.0); BG METHEMOGLOBIN 0.3 % (0.0-1.5); BG OXYGEN SATURATION 99.3 % (92.0-98.5); BG OXYHEMOGLOBIN 98.7 % (94.0-97.0); BG PCO2 43.4 mmHg (35.0-45.0); BG PH 7.403 (7.350-7.450); BG PO2 256.7 mmHg (75.0-100.0); BG SAMPLE SITE RIGHT RADIAL; BG TIDAL VOLUME(mL) 500 mL; BG TOTAL HEMOGLOBIN 8.9 g/dL (12.0-18.0); BG VENT MODE VENT - A/C; BG VENT RATE 18 set
[2019-05-28] MEDS: BLOOD SUGAR DIAGNOSTIC STRIP TEST SCH ×2 (12:11→17:07)
[2019-05-28] MEDS: INSULIN LISPRO 100 UNITS/ML SUBCUT SCH ×2 (12:20→17:15)
[2019-05-28] MEDS ORDERED: POTASSIUM CHLORIDE INJ 40 MEQ in DEXT 5% WATER 250 ML IV NR (14:00)
[2019-05-28] MEDS: MORPHINE SULFATE 2 MG/ML CPJ (NOT FOR IM USE) IV PRN (14:08)
[2019-05-28] MEDS: PROPOFOL 10MG/ML 100ML 100 ML IV PRN (15:16)
[2019-05-28] MEDS: METOCLOPRAMIDE HCL 10MG/2ML VIAL IV SCH (17:14)
[2019-05-28] MEDS: CEFEPIME 1,000 MG in DEXTROSE 5% WATER 50 ML IV SCH (17:14)
[2019-05-29] VITALS (100 sets, daily range): BP systolic 86–118; BP diastolic 42–63
[2019-05-29] MEDS: ACETYLCYSTEINE 100MG/ML 10% VIAL 4ML INH SCH ×2 (00:15→15:53)
[2019-05-29] MEDS: IPRATROPIUM BROMIDE (0.02%) 0.5MG/2.5ML NEB HHN SCH ×6 (00:15→20:10)
[2019-05-29] MEDS: BLOOD SUGAR DIAGNOSTIC STRIP TEST SCH ×5 (00:35→23:41)
[2019-05-29] MEDS: INSULIN LISPRO 100 UNITS/ML SUBCUT SCH ×5 (00:42→23:41)
[2019-05-29] MEDS: METOCLOPRAMIDE HCL 10MG/2ML VIAL IV SCH ×5 (00:42→23:40)
[2019-05-29] MEDS: POLYVINYL ALCOHOL OPHTH DROPS 15ML BOTHEYE SCH ×5 (00:43→23:40)
[2019-05-29] MEDS: PROPOFOL 10MG/ML 100ML 100 ML IV PRN ×2 (03:19→15:48)
[2019-05-29] MEDS: METRONIDAZOLE 500 MG PREMIX 100 ML IV SCH ×2 (06:10→17:48)
[2019-05-29] MEDS: DEXTROSE 5% WATER 1,000 ML IV SCH ×3 (06:11→20:37)
[2019-05-29] MEDS: PANTOPRAZOLE SODIUM 40 MG/VIAL IV SCH (08:23)
[2019-05-29] MEDS: DESMOPRESSIN ACETATE 4MCG/ML AMP IV SCH ×2 (08:23→20:38)
[2019-05-29] MEDS: ACETAMINOPHEN 650MG/20.3ML UDC NG PRN ×2 (08:23→16:27)
[2019-05-29] MEDS: METOPROLOL TARTRATE 50MG TABLET PO SCH ×2 (08:23→20:38)
[2019-05-29] MEDS: DOXYCYCLINE HYCLATE 100MG CAPSULE PO SCH ×2 (08:23→20:38)
[2019-05-29] MEDS: SUCRALFATE 1 G/10 ML UDC NG SCH ×4 (08:27→20:37)
[2019-05-29 08:40] LABS: HEMATOCRIT. 23.3 % (42.0-52.0); HEMOGLOBIN. 7.5 g/dL (14.0-18.0); MEAN CORPUSCULAR HEMOGLOBIN 29.7 pg (28.0-32.0); MEAN CORPUSCULAR VOLUME 92.2 fL (80.0-94.0); MEAN PLATELET VOLUME 11.6 fl (7.4-10.4); PLATELET 276 x1000/uL (130-400); RED BLOOD CELL COUNT 2.53 mill/uL (4.7-6.1); RED CELL DISTRIBUTION WIDTH 15.6 % (11.6-14.6)
[2019-05-29 10:00] LABS: BG CARBOXYHEMOGLOBIN 0.3 % (0.5-1.5); BG DEOXYHEMOGLOBIN 4.4 % (0.0-5.0); BG FRACTION INSPIRED OXYGEN 40; BG METHEMOGLOBIN 0.3 % (0.0-1.5); BG OXYGEN SATURATION 95.6 % (92.0-98.5); BG PCO2 29.4 mmHg (35.0-45.0); BG PH 7.491 (7.350-7.450); BG PO2 78.4 mmHg (75.0-100.0); BG SAMPLE SITE RIGHT RADIAL; BG TIDAL VOLUME(mL) 500 mL; BG TOTAL HEMOGLOBIN 7.7 g/dL (12.0-18.0); BG VENT MODE VENT - A/C; BG VENT RATE 18 set
[2019-05-29 10:08] LABS: NUCLEATED RED BLOOD CELLS 1 /100 WBC; PLATELET ESTIMATE NORMAL
[2019-05-29] MEDS ORDERED: POTASSIUM CHLORIDE 20MEQ/PACKET PO NR (10:30)
[2019-05-29] MEDS ORDERED: SODIUM CHLORIDE 0.9% 500 ML IV ONE ×2 (11:38→11:45)
[2019-05-29 14:28] LABS: INR 1.8; PROTHROMBIN TIME 17.9 sec (9.6-11.0)
[2019-05-29] MEDS ORDERED: PHYTONADIONE 10MG/ML AMP SUBCUT NR (15:15)
[2019-05-29] MEDS: CEFEPIME 1,000 MG in DEXTROSE 5% WATER 50 ML IV SCH (17:59)
[2019-05-29] MEDS ORDERED: METOCLOPRAMIDE HCL 10MG/2ML VIAL IV SCH (18:00)
[2019-05-29] MEDS: IPRATROPIUM/ALBUTEROL 0.5-3(2.5)MG/3ML NEB HHN PRN (20:10)
[2019-05-29 20:42] LABS: INR 1.6; PROTHROMBIN TIME 16.3 sec (9.6-11.0)
[2019-05-30] VITALS (64 sets, daily range): BP systolic 106–152; BP diastolic 51–80
[2019-05-30] MEDS: IPRATROPIUM BROMIDE (0.02%) 0.5MG/2.5ML NEB HHN SCH ×6 (00:10→20:09)
[2019-05-30] MEDS: ACETYLCYSTEINE 100MG/ML 10% VIAL 4ML INH SCH ×3 (00:11→16:36)
[2019-05-30] MEDS: PROPOFOL 10MG/ML 100ML 100 ML IV PRN (04:17)
[2019-05-30] MEDS: DEXTROSE 5% WATER 1,000 ML IV SCH ×3 (04:17→20:35)
[2019-05-30 04:24] LABS: MEAN CORPUSCULAR HEMOGLOBIN 29.9 pg (28.0-32.0); MEAN CORPUSCULAR VOLUME 91.9 fL (80.0-94.0); MEAN PLATELET VOLUME 11.5 fl (7.4-10.4); PLATELET 245 x1000/uL (130-400); RED BLOOD CELL COUNT 2.25 mill/uL (4.7-6.1); RED CELL DISTRIBUTION WIDTH 15.4 % (11.6-14.6)
[2019-05-30 04:36] LABS: HEMATOCRIT. 20.7 % (42.0-52.0); HEMOGLOBIN. 6.7 g/dL (14.0-18.0)
[2019-05-30] MEDS: METOCLOPRAMIDE HCL 10MG/2ML VIAL IV SCH ×4 (05:17→23:43)
[2019-05-30] MEDS: POLYVINYL ALCOHOL OPHTH DROPS 15ML BOTHEYE SCH ×4 (05:17→23:43)
[2019-05-30] MEDS: METRONIDAZOLE 500 MG PREMIX 100 ML IV SCH ×2 (05:17→17:05)
[2019-05-30] MEDS: INSULIN LISPRO 100 UNITS/ML SUBCUT SCH ×2 (05:18→11:50)
[2019-05-30] MEDS: BLOOD SUGAR DIAGNOSTIC STRIP TEST SCH ×4 (05:18→23:43)
[2019-05-30] MEDS ORDERED: POTASSIUM CHLORIDE 20MEQ/PACKET PO SCH (06:30)
[2019-05-30 07:21] LABS: PLATELET ESTIMATE NORMAL
[2019-05-30] MEDS: PANTOPRAZOLE SODIUM 40 MG/VIAL IV SCH (08:56)
[2019-05-30] MEDS: ACETAMINOPHEN 650MG/20.3ML UDC NG PRN (08:56)
[2019-05-30] MEDS: SUCRALFATE 1 G/10 ML UDC NG SCH ×4 (08:56→21:38)
[2019-05-30] MEDS: METOPROLOL TARTRATE 50MG TABLET PO SCH ×2 (08:57→21:38)
[2019-05-30] MEDS: DESMOPRESSIN ACETATE 4MCG/ML AMP IV SCH ×2 (08:58→22:47)
[2019-05-30 09:19] LABS: BG CARBOXYHEMOGLOBIN 0.3 % (0.5-1.5); BG DEOXYHEMOGLOBIN 3.6 % (0.0-5.0); BG FRACTION INSPIRED OXYGEN 40; BG HCO3 ACT 19.7 mmol/L (22.0-26.0); BG METHEMOGLOBIN 0.6 % (0.0-1.5); BG OXYGEN SATURATION 96.4 % (92.0-98.5); BG OXYHEMOGLOBIN 95.5 % (94.0-97.0); BG PCO2 26.4 mmHg (35.0-45.0); BG PH 7.491 (7.350-7.450); BG SAMPLE SITE LEFT RADIAL; BG TIDAL VOLUME(mL) 500 mL; BG TOTAL HEMOGLOBIN 7.7 g/dL (12.0-18.0); BG VENT MODE VENT - A/C; BG VENT RATE 18 set
[2019-05-30 11:28] LABS: INR 1.5; PROTHROMBIN TIME 14.7 sec (9.6-11.0)
[2019-05-30] MEDS: INSULIN LISPRO (HIGH DOSE) 100 UNITS/ML SUBCUT SCH ×3 (12:10→23:42)
[2019-05-30] MEDS: CEFEPIME 1,000 MG in DEXTROSE 5% WATER 50 ML IV SCH (17:05)
[2019-05-30 21:51] LABS: HEMATOCRIT. 30.2 % (42.0-52.0); MEAN CORPUSCULAR HEMOGLOBIN 30.4 pg (28.0-32.0); MEAN CORPUSCULAR VOLUME 91.9 fL (80.0-94.0); MEAN PLATELET VOLUME 11.5 fl (7.4-10.4); PLATELET 269 x1000/uL (130-400); RED BLOOD CELL COUNT 3.28 mill/uL (4.7-6.1)
[2019-05-30 22:51] LABS: PLATELET ESTIMATE NORMAL
[2019-05-31] VITALS (41 sets, daily range): BP systolic 109–150; BP diastolic 56–101
[2019-05-31] MEDS: IPRATROPIUM BROMIDE (0.02%) 0.5MG/2.5ML NEB HHN SCH ×6 (00:06→20:02)
[2019-05-31] MEDS: ACETYLCYSTEINE 100MG/ML 10% VIAL 4ML INH SCH ×3 (00:06→16:57)
[2019-05-31] MEDS: DEXTROSE 5% WATER 1,000 ML IV SCH ×3 (04:06→21:06)
[2019-05-31] MEDS: METRONIDAZOLE 500 MG PREMIX 100 ML IV SCH ×2 (05:08→17:18)
[2019-05-31] MEDS: METOCLOPRAMIDE HCL 10MG/2ML VIAL IV SCH ×3 (05:08→17:19)
[2019-05-31] MEDS: BLOOD SUGAR DIAGNOSTIC STRIP TEST SCH ×3 (05:08→17:33)
[2019-05-31] MEDS: POLYVINYL ALCOHOL OPHTH DROPS 15ML BOTHEYE SCH ×3 (05:08→17:19)
[2019-05-31] MEDS: INSULIN LISPRO (HIGH DOSE) 100 UNITS/ML SUBCUT SCH ×3 (05:10→17:32)
[2019-05-31 06:19] LABS: HEMATOCRIT. 29.7 % (42.0-52.0); HEMOGLOBIN. 9.9 g/dL (14.0-18.0); MEAN CORPUSCULAR HEMOGLOBIN 30.2 pg (28.0-32.0); MEAN CORPUSCULAR VOLUME 90.9 fL (80.0-94.0); MEAN PLATELET VOLUME 11.7 fl (7.4-10.4); PLATELET 283 x1000/uL (130-400); RED BLOOD CELL COUNT 3.27 mill/uL (4.7-6.1); RED CELL DISTRIBUTION WIDTH 15.1 % (11.6-14.6)
[2019-05-31 06:20] LABS: INR 1.3; PROTHROMBIN TIME 12.8 sec (9.6-11.0)
[2019-05-31] MEDS ORDERED: POTASSIUM CHLORIDE 20MEQ/PACKET PO NR (06:43)
[2019-05-31] MEDS: MORPHINE SULFATE 2 MG/ML CPJ (NOT FOR IM USE) IV PRN ×2 (07:41→10:03)
[2019-05-31 09:08] LABS: BG BASE EXCESS -3.4 mmol/L (-2.0-2.0); BG CARBOXYHEMOGLOBIN 0.3 % (0.5-1.5); BG DEOXYHEMOGLOBIN 3.6 % (0.0-5.0); BG FRACTION INSPIRED OXYGEN 40; BG HCO3 ACT 20.7 mmol/L (22.0-26.0); BG METHEMOGLOBIN 0.3 % (0.0-1.5); BG OXYGEN SATURATION 96.4 % (92.0-98.5); BG OXYHEMOGLOBIN 95.8 % (94.0-97.0); BG PCO2 34.1 mmHg (35.0-45.0); BG PH 7.402 (7.350-7.450); BG PO2 88.3 mmHg (75.0-100.0); BG SAMPLE SITE RIGHT RADIAL; BG TIDAL VOLUME(mL) 500 mL; BG TOTAL HEMOGLOBIN 10.6 g/dL (12.0-18.0); BG VENT MODE VENT - A/C; BG VENT RATE 14 set
[2019-05-31] MEDS: SUCRALFATE 1 G/10 ML UDC NG SCH ×4 (09:23→21:06)
[2019-05-31] MEDS: PANTOPRAZOLE SODIUM 40 MG/VIAL IV SCH (09:23)
[2019-05-31] MEDS: METOPROLOL TARTRATE 50MG TABLET PO SCH ×2 (09:24→21:06)
[2019-05-31] MEDS: DESMOPRESSIN ACETATE 4MCG/ML AMP IV SCH ×2 (09:24→21:06)
[2019-05-31] MEDS: LORAZEPAM 2MG/ML CPJ IV PRN (10:02)
[2019-05-31] MEDS ORDERED: BISACODYL 10MG SUPP PR PRN (10:30)
[2019-05-31 11:47] LABS: PLATELET ESTIMATE NORMAL
[2019-05-31] MEDS: CEFEPIME 1,000 MG in DEXTROSE 5% WATER 50 ML IV SCH (17:14)
[2019-06-01] VITALS (24 sets, daily range): BP systolic 108–152; BP diastolic 62–94
[2019-06-01] MEDS: IPRATROPIUM BROMIDE (0.02%) 0.5MG/2.5ML NEB HHN SCH ×6 (00:04→20:50)
[2019-06-01] MEDS: BLOOD SUGAR DIAGNOSTIC STRIP TEST SCH ×4 (00:30→17:33)
[2019-06-01] MEDS: METOCLOPRAMIDE HCL 10MG/2ML VIAL IV SCH ×4 (00:44→17:22)
[2019-06-01] MEDS: INSULIN LISPRO (HIGH DOSE) 100 UNITS/ML SUBCUT SCH ×4 (00:44→17:34)
[2019-06-01] MEDS: POLYVINYL ALCOHOL OPHTH DROPS 15ML BOTHEYE SCH ×4 (00:44→17:33)
[2019-06-01] MEDS: DEXTROSE 5% WATER 1,000 ML IV SCH ×3 (04:43→21:22)
[2019-06-01 04:44] LABS: HEMOGLOBIN. 9.6 g/dL (14.0-18.0); MEAN CORPUSCULAR HEMOGLOBIN 30.4 pg (28.0-32.0); MEAN CORPUSCULAR VOLUME 91.6 fL (80.0-94.0); MEAN PLATELET VOLUME 11.1 fl (7.4-10.4); PLATELET 273 x1000/uL (130-400); RED BLOOD CELL COUNT 3.16 mill/uL (4.7-6.1)
[2019-06-01 05:04] LABS: PHOSPHORUS 3.1 mg/dL (2.5-4.9)
[2019-06-01] MEDS: METRONIDAZOLE 500 MG PREMIX 100 ML IV SCH ×2 (06:57→17:22)
[2019-06-01] MEDS: SUCRALFATE 1 G/10 ML UDC NG SCH ×4 (08:26→21:21)
[2019-06-01] MEDS: METOPROLOL TARTRATE 50MG TABLET PO SCH ×2 (08:26→21:21)
[2019-06-01] MEDS: PETROLATUM,WHITE OPHTH OINT 3.5GM BOTHEYE SCH ×2 (08:27→21:21)
[2019-06-01] MEDS: MORPHINE SULFATE 2 MG/ML CPJ (NOT FOR IM USE) IV PRN ×2 (08:27→18:08)
[2019-06-01] MEDS: DESMOPRESSIN ACETATE 4MCG/ML AMP IV SCH ×2 (08:29→21:24)
[2019-06-01 08:43] LABS: BG BASE EXCESS -2.4 mmol/L (-2.0-2.0); BG CARBOXYHEMOGLOBIN 0.3 % (0.5-1.5); BG DEOXYHEMOGLOBIN 4.3 % (0.0-5.0); BG FRACTION INSPIRED OXYGEN 40; BG HCO3 ACT 22.1 mmol/L (22.0-26.0); BG METHEMOGLOBIN 0.1 % (0.0-1.5); BG OXYGEN SATURATION 95.7 % (92.0-98.5); BG OXYHEMOGLOBIN 95.3 % (94.0-97.0); BG PCO2 36.7 mmHg (35.0-45.0); BG PH 7.397 (7.350-7.450); BG PO2 83.4 mmHg (75.0-100.0); BG SAMPLE SITE RIGHT RADIAL; BG TIDAL VOLUME(mL) 500 mL; BG TOTAL HEMOGLOBIN 11.3 g/dL (12.0-18.0); BG VENT MODE VENT - A/C; BG VENT RATE 14 set
[2019-06-01 10:13] LABS: NUCLEATED RED BLOOD CELLS 1 /100 WBC
[2019-06-01 10:14] LABS: PLATELET ESTIMATE NORMAL
[2019-06-01] MEDS ORDERED: POTASSIUM CHLORIDE INJ 40 MEQ in DEXT 5% WATER 250 ML IV SCH (10:30)
[2019-06-01] MEDS: CEFEPIME 1,000 MG in DEXTROSE 5% WATER 50 ML IV SCH (17:22)
[2019-06-02] VITALS (27 sets, daily range): BP systolic 107–159; BP diastolic 63–80
[2019-06-02] MEDS: IPRATROPIUM BROMIDE (0.02%) 0.5MG/2.5ML NEB HHN SCH ×6 (00:38→20:21)
[2019-06-02] MEDS: DEXTROSE 5% WATER 1,000 ML IV SCH (04:46)
[2019-06-02 05:44] LABS: BASOPHILS % 0.4 % (0.0-2.0); HEMATOCRIT. 27.8 % (42.0-52.0); HEMOGLOBIN. 9.1 g/dL (14.0-18.0); LYMPHOCYTES % 7.9 % (20.0-50.0); MEAN CORPUSCULAR HEMOGLOBIN 30.2 pg (28.0-32.0); MEAN CORPUSCULAR VOLUME 92.3 fL (80.0-94.0); MEAN PLATELET VOLUME 10.8 fl (7.4-10.4); MONOCYTES % 5.1 % (2.0-8.0); NEUTROPHILS % 85.6 % (40.0-76.0); PLATELET 250 x1000/uL (130-400); RED BLOOD CELL COUNT 3.01 mill/uL (4.7-6.1); RED CELL DISTRIBUTION WIDTH 15.4 % (11.6-14.6)
[2019-06-02 06:25] LABS: CHLORIDE 113 mEq/L (98-107)
[2019-06-02] MEDS: MORPHINE SULFATE 2 MG/ML CPJ (NOT FOR IM USE) IV PRN ×4 (06:48→18:44)
[2019-06-02] MEDS: METOCLOPRAMIDE HCL 10MG/2ML VIAL IV SCH ×4 (06:48→17:12)
[2019-06-02] MEDS: BLOOD SUGAR DIAGNOSTIC STRIP TEST SCH ×4 (06:49→18:45)
[2019-06-02] MEDS: INSULIN LISPRO (HIGH DOSE) 100 UNITS/ML SUBCUT SCH ×4 (06:49→18:45)
[2019-06-02] MEDS: POLYVINYL ALCOHOL OPHTH DROPS 15ML BOTHEYE SCH ×4 (06:49→17:12)
[2019-06-02] MEDS ORDERED: POTASSIUM CHLORIDE 20MEQ/PACKET PO SCH (08:00)
[2019-06-02] MEDS: METOPROLOL TARTRATE 50MG TABLET PO SCH ×2 (08:57→22:12)
[2019-06-02] MEDS: SUCRALFATE 1 G/10 ML UDC NG SCH ×4 (08:57→17:12)
[2019-06-02] MEDS: PETROLATUM,WHITE OPHTH OINT 3.5GM BOTHEYE SCH ×2 (08:58→22:15)
[2019-06-02] MEDS ORDERED: PANTOPRAZOLE SODIUM 40 MG/VIAL IV SCH ×2 (09:00→11:45)
[2019-06-02 09:13] LABS: BG BASE EXCESS -0.7 mmol/L (-2.0-2.0); BG CARBOXYHEMOGLOBIN 0.3 % (0.5-1.5); BG DEOXYHEMOGLOBIN 4.3 % (0.0-5.0); BG FRACTION INSPIRED OXYGEN 35; BG HCO3 ACT 24.9 mmol/L (22.0-26.0); BG METHEMOGLOBIN 0.3 % (0.0-1.5); BG OXYGEN SATURATION 95.7 % (92.0-98.5); BG OXYHEMOGLOBIN 95.1 % (94.0-97.0); BG PCO2 44.9 mmHg (35.0-45.0); BG PH 7.362 (7.350-7.450); BG PO2 86.9 mmHg (75.0-100.0); BG SAMPLE SITE RIGHT RADIAL; BG TIDAL VOLUME(mL) 500 mL; BG TOTAL HEMOGLOBIN 10.8 g/dL (12.0-18.0); BG VENT MODE VENT - A/C; BG VENT RATE 14 set
[2019-06-02] MEDS ORDERED: POTASSIUM CHLORIDE INJ 40 MEQ in DEXT 5% WATER 250 ML IV SCH (10:30)
[2019-06-02] MEDS: DEXT 5%/0.45% NACL 1000ML 1,000 ML IV SCH (10:47)
[2019-06-02] MEDS: CEFEPIME 1,000 MG in DEXTROSE 5% WATER 50 ML IV SCH (17:03)
[2019-06-02] MEDS: METRONIDAZOLE 500 MG PREMIX 100 ML IV SCH (17:11)
[2019-06-02] MEDS ORDERED: MIDAZOLAM HCL 2 MG/2 ML VIAL ONE (18:49)
[2019-06-02] MEDS ORDERED: ROCURONIUM BROMIDE 10MG/ML VIAL 5ML IV ONE ×2 (18:49→18:51)
[2019-06-02 19:16] LABS: HEMATOCRIT 26.8 % (42.0-52.0); HEMOGLOBIN 8.7 g/dL (14.0-18.0)
[2019-06-02] MEDS ORDERED: PHENYLEPHRINE HCL 10 MG/ML 1ML (IV VIAL) IV ONE (19:19)
[2019-06-02] MEDS: PANTOPRAZOLE SODIUM 40 MG/VIAL IV SCH (22:11)
[2019-06-02] MEDS: HALOPERIDOL LACTATE 5MG/ML VIAL IM PRN (22:11)
[2019-06-02] MEDS: LORAZEPAM 2MG/ML CPJ IV PRN (22:12)
[2019-06-03] VITALS (41 sets, daily range): BP systolic 101–154; BP diastolic 60–88
[2019-06-03] MEDS: IPRATROPIUM BROMIDE (0.02%) 0.5MG/2.5ML NEB HHN SCH ×6 (00:31→20:03)
[2019-06-03] MEDS: BLOOD SUGAR DIAGNOSTIC STRIP TEST SCH ×4 (00:43→17:15)
[2019-06-03] MEDS: INSULIN LISPRO (HIGH DOSE) 100 UNITS/ML SUBCUT SCH ×4 (00:45→17:31)
[2019-06-03] MEDS: SUCRALFATE 1 G/10 ML UDC NG SCH ×4 (00:54→17:30)
[2019-06-03] MEDS: METOCLOPRAMIDE HCL 10MG/2ML VIAL IV SCH ×4 (00:55→17:30)
[2019-06-03] MEDS: POLYVINYL ALCOHOL OPHTH DROPS 15ML BOTHEYE SCH ×4 (00:56→17:31)
[2019-06-03] MEDS: DEXT 5%/0.45% NACL 1000ML 1,000 ML IV SCH (02:48)
[2019-06-03 05:17] LABS: BASOPHILS % 0.3 % (0.0-2.0); HEMATOCRIT. 27.2 % (42.0-52.0); HEMOGLOBIN. 8.9 g/dL (14.0-18.0); LYMPHOCYTES % 7.8 % (20.0-50.0); MEAN CORPUSCULAR HEMOGLOBIN 30.4 pg (28.0-32.0); MEAN CORPUSCULAR VOLUME 92.6 fL (80.0-94.0); MEAN PLATELET VOLUME 10.3 fl (7.4-10.4); NEUTROPHILS % 85.9 % (40.0-76.0); PLATELET 230 x1000/uL (130-400); RED BLOOD CELL COUNT 2.94 mill/uL (4.7-6.1); RED CELL DISTRIBUTION WIDTH 15.2 % (11.6-14.6)
[2019-06-03 05:36] LABS: PHOSPHORUS 3.7 mg/dL (2.5-4.9)
[2019-06-03] MEDS: METRONIDAZOLE 500 MG PREMIX 100 ML IV SCH ×2 (06:25→18:11)
[2019-06-03] MEDS: PANTOPRAZOLE SODIUM 40 MG/VIAL IV SCH ×2 (08:27→21:24)
[2019-06-03] MEDS: CLONIDINE HCL 0.2MG/24HR PATCH TD SCH (08:27)
[2019-06-03] MEDS: PETROLATUM,WHITE OPHTH OINT 3.5GM BOTHEYE SCH ×2 (08:27→21:24)
[2019-06-03] MEDS: METOPROLOL TARTRATE 50MG TABLET PO SCH ×2 (08:28→21:25)
[2019-06-03] MEDS: DEXTROSE 5% WATER 1,000 ML IV SCH (08:30)
[2019-06-03] MEDS ORDERED: POTASSIUM CHLORIDE INJ 40 MEQ in DEXT 5% WATER 250 ML IV NR (09:30)
[2019-06-03] MEDS: CEFEPIME 1,000 MG in DEXTROSE 5% WATER 50 ML IV SCH (17:30)
[2019-06-03] MEDS: LORAZEPAM 2MG/ML CPJ IV PRN (18:32)
[2019-06-03] MEDS: MORPHINE SULFATE 2 MG/ML CPJ (NOT FOR IM USE) IV PRN (18:58)
[2019-06-04] VITALS (16 sets, daily range): BP systolic 123–150; BP diastolic 70–82
[2019-06-04] MEDS: IPRATROPIUM BROMIDE (0.02%) 0.5MG/2.5ML NEB HHN SCH ×6 (00:11→20:30)
[2019-06-04] MEDS: BLOOD SUGAR DIAGNOSTIC STRIP TEST SCH ×4 (00:55→18:00)
[2019-06-04] MEDS: METOCLOPRAMIDE HCL 10MG/2ML VIAL IV SCH ×4 (00:55→18:12)
[2019-06-04] MEDS: POLYVINYL ALCOHOL OPHTH DROPS 15ML BOTHEYE SCH ×4 (00:55→18:13)
[2019-06-04] MEDS: INSULIN LISPRO (HIGH DOSE) 100 UNITS/ML SUBCUT SCH ×4 (01:29→18:14)
[2019-06-04] MEDS: DEXTROSE 5% WATER 1,000 ML IV SCH ×2 (01:30→18:24)
[2019-06-04] MEDS: SUCRALFATE 1 G/10 ML UDC NG SCH ×4 (05:42→18:12)
[2019-06-04 05:45] LABS: HEMATOCRIT. 26.6 % (42.0-52.0); HEMOGLOBIN. 8.6 g/dL (14.0-18.0); MEAN CORPUSCULAR HEMOGLOBIN 30.3 pg (28.0-32.0); MEAN PLATELET VOLUME 9.7 fl (7.4-10.4); PLATELET 230 x1000/uL (130-400); RED BLOOD CELL COUNT 2.86 mill/uL (4.7-6.1)
[2019-06-04 05:55] LABS: INR 1.3; PARTIAL THROMBOPLASTIN TIME 24.4 sec (23.4-31.0); PROTHROMBIN TIME 12.7 sec (9.6-11.0)
[2019-06-04] MEDS: METRONIDAZOLE 500 MG PREMIX 100 ML IV SCH ×2 (06:08→18:23)
[2019-06-04 06:43] LABS: CHLORIDE 123 mEq/L (98-107)
[2019-06-04 06:50] LABS: PHOSPHORUS 3.6 mg/dL (2.5-4.9)
[2019-06-04] MEDS ORDERED: POTASSIUM CHLORIDE 20MEQ/PACKET PO SCH (09:15)
[2019-06-04] MEDS: PANTOPRAZOLE SODIUM 40 MG/VIAL IV SCH ×2 (09:59→20:06)
[2019-06-04] MEDS: PETROLATUM,WHITE OPHTH OINT 3.5GM BOTHEYE SCH ×2 (10:00→20:06)
[2019-06-04] MEDS: DESMOPRESSIN ACETATE 4MCG/ML AMP SUBCUT SCH ×2 (10:30→22:06)
[2019-06-04] MEDS: METOPROLOL TARTRATE 50MG TABLET PO SCH ×2 (10:32→20:06)
[2019-06-04 10:46] LABS: PLATELET ESTIMATE NORMAL
[2019-06-04] MEDS: CEFEPIME 1,000 MG in DEXTROSE 5% WATER 50 ML IV SCH (18:23)
[2019-06-05] VITALS (12 sets, daily range): BP systolic 125–142; BP diastolic 71–92
[2019-06-05] MEDS: IPRATROPIUM BROMIDE (0.02%) 0.5MG/2.5ML NEB HHN SCH ×6 (00:21→21:00)
[2019-06-05] MEDS: BLOOD SUGAR DIAGNOSTIC STRIP TEST SCH ×4 (00:33→17:41)
[2019-06-05] MEDS: METOCLOPRAMIDE HCL 10MG/2ML VIAL IV SCH ×4 (00:33→17:43)
[2019-06-05] MEDS: POLYVINYL ALCOHOL OPHTH DROPS 15ML BOTHEYE SCH ×4 (00:33→17:42)
[2019-06-05] MEDS: INSULIN LISPRO (HIGH DOSE) 100 UNITS/ML SUBCUT SCH ×4 (00:42→17:42)
[2019-06-05] MEDS: METRONIDAZOLE 500 MG PREMIX 100 ML IV SCH ×2 (05:58→18:10)
[2019-06-05] MEDS: SUCRALFATE 1 G/10 ML UDC NG SCH ×4 (05:59→17:43)
[2019-06-05 07:35] LABS: BASOPHILS % 0.5 % (0.0-2.0); EOSINOPHILS % 1.2 % (0.0-5.0); HEMATOCRIT. 25.1 % (42.0-52.0); HEMOGLOBIN. 8.1 g/dL (14.0-18.0); LYMPHOCYTES % 8.4 % (20.0-50.0); MEAN CORPUSCULAR HEMOGLOBIN 30.2 pg (28.0-32.0); MEAN CORPUSCULAR VOLUME 93.7 fL (80.0-94.0); MEAN PLATELET VOLUME 9.7 fl (7.4-10.4); NEUTROPHILS % 84.9 % (40.0-76.0); PLATELET 205 x1000/uL (130-400); RED BLOOD CELL COUNT 2.68 mill/uL (4.7-6.1); RED CELL DISTRIBUTION WIDTH 15.5 % (11.6-14.6)
[2019-06-05 08:18] LABS: PHOSPHORUS 3.8 mg/dL (2.5-4.9)
[2019-06-05] MEDS: METOPROLOL TARTRATE 50MG TABLET PO SCH ×2 (08:33→20:38)
[2019-06-05] MEDS: PANTOPRAZOLE SODIUM 40 MG/VIAL IV SCH ×2 (08:33→20:38)
[2019-06-05] MEDS: DESMOPRESSIN ACETATE 4MCG/ML AMP SUBCUT SCH ×2 (08:34→20:39)
[2019-06-05] MEDS: PETROLATUM,WHITE OPHTH OINT 3.5GM BOTHEYE SCH ×2 (11:47→20:39)
[2019-06-05] MEDS: DEXTROSE 5% WATER 1,000 ML IV SCH (11:48)
[2019-06-05] MEDS ORDERED: FENTANYL CITRATE/PF 50MCG/ML 2ML VIAL ONE (16:00)
[2019-06-05] MEDS ORDERED: MIDAZOLAM HCL 5 MG/5 ML VIAL ONE (16:00)
[2019-06-05] MEDS ORDERED: MIDAZOLAM HCL 5 MG/5 ML VIAL IV PRN (16:26)
[2019-06-05] MEDS: CEFEPIME 1,000 MG in DEXTROSE 5% WATER 50 ML IV SCH (17:42)
[2019-06-06] VITALS (12 sets, daily range): BP systolic 112–139; BP diastolic 68–78
[2019-06-06] MEDS: IPRATROPIUM BROMIDE (0.02%) 0.5MG/2.5ML NEB HHN SCH ×6 (00:02→19:42)
[2019-06-06] MEDS: SUCRALFATE 1 G/10 ML UDC NG SCH ×5 (00:31→23:24)
[2019-06-06] MEDS: METOCLOPRAMIDE HCL 10MG/2ML VIAL IV SCH ×5 (00:31→23:24)
[2019-06-06] MEDS: DEXTROSE 5% WATER 1,000 ML IV SCH ×2 (00:32→09:18)
[2019-06-06] MEDS: INSULIN LISPRO (HIGH DOSE) 100 UNITS/ML SUBCUT SCH ×5 (00:32→23:24)
[2019-06-06] MEDS: POLYVINYL ALCOHOL OPHTH DROPS 15ML BOTHEYE SCH ×5 (00:32→23:24)
[2019-06-06] MEDS: BLOOD SUGAR DIAGNOSTIC STRIP TEST SCH ×5 (00:33→23:25)
[2019-06-06] MEDS: METRONIDAZOLE 500 MG PREMIX 100 ML IV SCH ×2 (06:06→18:13)
[2019-06-06 07:19] LABS: BASOPHILS % 0.6 % (0.0-2.0); EOSINOPHILS % 1.2 % (0.0-5.0); HEMATOCRIT. 26.3 % (42.0-52.0); HEMOGLOBIN. 8.4 g/dL (14.0-18.0); LYMPHOCYTES % 9.3 % (20.0-50.0); MEAN CORPUSCULAR HEMOGLOBIN 30.3 pg (28.0-32.0); MONOCYTES % 4.8 % (2.0-8.0); NEUTROPHILS % 84.1 % (40.0-76.0); PLATELET 205 x1000/uL (130-400); RED BLOOD CELL COUNT 2.77 mill/uL (4.7-6.1); RED CELL DISTRIBUTION WIDTH 15.4 % (11.6-14.6)
[2019-06-06 07:21] LABS: PHOSPHORUS 4.1 mg/dL (2.5-4.9)
[2019-06-06] MEDS: PANTOPRAZOLE SODIUM 40 MG/VIAL IV SCH (09:18)
[2019-06-06] MEDS: METOPROLOL TARTRATE 50MG TABLET PO SCH ×2 (09:19→21:28)
[2019-06-06] MEDS: PETROLATUM,WHITE OPHTH OINT 3.5GM BOTHEYE SCH ×2 (09:19→21:28)
[2019-06-06] MEDS: DESMOPRESSIN ACETATE 4MCG/ML AMP SUBCUT SCH ×2 (11:59→21:29)
[2019-06-06] MEDS: CEFEPIME 1,000 MG in DEXTROSE 5% WATER 50 ML IV SCH (16:52)
[2019-06-07] VITALS (12 sets, daily range): BP systolic 119–136; BP diastolic 70–78
[2019-06-07] MEDS: IPRATROPIUM BROMIDE (0.02%) 0.5MG/2.5ML NEB HHN SCH ×6 (00:02→19:59)
[2019-06-07] MEDS: DEXTROSE 5% WATER 1,000 ML IV SCH ×2 (01:05→16:25)
[2019-06-07] MEDS: METOCLOPRAMIDE HCL 10MG/2ML VIAL IV SCH ×4 (05:24→23:08)
[2019-06-07] MEDS: METRONIDAZOLE 500 MG PREMIX 100 ML IV SCH ×2 (05:24→18:41)
[2019-06-07] MEDS: SUCRALFATE 1 G/10 ML UDC NG SCH ×4 (05:24→23:08)
[2019-06-07] MEDS: POLYVINYL ALCOHOL OPHTH DROPS 15ML BOTHEYE SCH ×4 (05:24→23:08)
[2019-06-07] MEDS: BLOOD SUGAR DIAGNOSTIC STRIP TEST SCH ×4 (05:25→23:25)
[2019-06-07] MEDS: INSULIN LISPRO (HIGH DOSE) 100 UNITS/ML SUBCUT SCH ×4 (05:25→23:30)
[2019-06-07 06:40] LABS: BASOPHILS % 0.3 % (0.0-2.0); EOSINOPHILS % 1.1 % (0.0-5.0); HEMATOCRIT. 27.4 % (42.0-52.0); HEMOGLOBIN. 8.7 g/dL (14.0-18.0); LYMPHOCYTES % 8.4 % (20.0-50.0); MEAN CORPUSCULAR HEMOGLOBIN 30.3 pg (28.0-32.0); MEAN PLATELET VOLUME 9.7 fl (7.4-10.4); MONOCYTES % 5.1 % (2.0-8.0); NEUTROPHILS % 85.1 % (40.0-76.0); PLATELET 181 x1000/uL (130-400); RED BLOOD CELL COUNT 2.88 mill/uL (4.7-6.1); RED CELL DISTRIBUTION WIDTH 15.5 % (11.6-14.6)
[2019-06-07] MEDS: FAMOTIDINE 20MG/2ML VIAL IV SCH (08:54)
[2019-06-07] MEDS: METOPROLOL TARTRATE 50MG TABLET PO SCH ×2 (08:54→22:52)
[2019-06-07] MEDS: PETROLATUM,WHITE OPHTH OINT 3.5GM BOTHEYE SCH ×2 (08:55→22:52)
[2019-06-07] MEDS: DESMOPRESSIN ACETATE 4MCG/ML AMP SUBCUT SCH ×2 (08:55→22:52)
[2019-06-07] MEDS: CEFEPIME 1,000 MG in DEXTROSE 5% WATER 50 ML IV SCH (17:16)
[2019-06-07 18:33] LABS: HEMATOCRIT 26.9 % (42.0-52.0); HEMOGLOBIN 8.4 g/dL (14.0-18.0)
[2019-06-08] VITALS (15 sets, daily range): BP systolic 115–137; BP diastolic 66–81
[2019-06-08 00:06] LABS: HEMATOCRIT 27.6 % (42.0-52.0); HEMOGLOBIN 8.7 g/dL (14.0-18.0)
[2019-06-08] MEDS: IPRATROPIUM BROMIDE (0.02%) 0.5MG/2.5ML NEB HHN SCH ×6 (00:14→20:39)
[2019-06-08] MEDS: SUCRALFATE 1 G/10 ML UDC NG SCH ×3 (05:13→17:16)
[2019-06-08] MEDS: METOCLOPRAMIDE HCL 10MG/2ML VIAL IV SCH ×3 (05:13→17:17)
[2019-06-08] MEDS: METRONIDAZOLE 500 MG PREMIX 100 ML IV SCH ×2 (05:14→18:15)
[2019-06-08] MEDS: POLYVINYL ALCOHOL OPHTH DROPS 15ML BOTHEYE SCH ×3 (05:15→17:17)
[2019-06-08] MEDS: BLOOD SUGAR DIAGNOSTIC STRIP TEST SCH ×3 (05:25→17:11)
[2019-06-08] MEDS: DEXTROSE 5% WATER 1,000 ML IV SCH ×2 (05:34→17:17)
[2019-06-08] MEDS: INSULIN LISPRO (HIGH DOSE) 100 UNITS/ML SUBCUT SCH ×3 (05:35→17:13)
[2019-06-08 07:17] LABS: BASOPHILS % 0.5 % (0.0-2.0); EOSINOPHILS % 1.3 % (0.0-5.0); HEMATOCRIT. 25.8 % (42.0-52.0); HEMOGLOBIN. 8.2 g/dL (14.0-18.0); LYMPHOCYTES % 11.4 % (20.0-50.0); MEAN CORPUSCULAR HEMOGLOBIN 30.4 pg (28.0-32.0); MEAN CORPUSCULAR VOLUME 95.6 fL (80.0-94.0); MEAN PLATELET VOLUME 10.4 fl (7.4-10.4); MONOCYTES % 4.9 % (2.0-8.0); NEUTROPHILS % 81.9 % (40.0-76.0); PLATELET 181 x1000/uL (130-400); RED CELL DISTRIBUTION WIDTH 15.4 % (11.6-14.6)
[2019-06-08] MEDS: PETROLATUM,WHITE OPHTH OINT 3.5GM BOTHEYE SCH ×2 (08:35→20:18)
[2019-06-08] MEDS: FAMOTIDINE 20MG/2ML VIAL IV SCH (08:35)
[2019-06-08] MEDS: METOPROLOL TARTRATE 50MG TABLET PO SCH ×2 (08:36→20:17)
[2019-06-08] MEDS: DESMOPRESSIN ACETATE 4MCG/ML AMP SUBCUT SCH ×2 (08:38→20:18)
[2019-06-08 12:35] LABS: HEMATOCRIT 25.6 % (42.0-52.0); HEMOGLOBIN 7.9 g/dL (14.0-18.0)
[2019-06-08] MEDS: CEFEPIME 1,000 MG in DEXTROSE 5% WATER 50 ML IV SCH (17:17)
[2019-06-08 20:27] LABS: HEMOGLOBIN 7.3 g/dL (14.0-18.0)
[2019-06-09] VITALS (15 sets, daily range): BP systolic 110–137; BP diastolic 70–84
[2019-06-09] MEDS: SUCRALFATE 1 G/10 ML UDC NG SCH ×4 (00:26→17:13)
[2019-06-09] MEDS: POLYVINYL ALCOHOL OPHTH DROPS 15ML BOTHEYE SCH ×4 (00:26→17:05)
[2019-06-09] MEDS: BLOOD SUGAR DIAGNOSTIC STRIP TEST SCH ×4 (00:33→17:00)
[2019-06-09] MEDS: IPRATROPIUM BROMIDE (0.02%) 0.5MG/2.5ML NEB HHN SCH ×6 (01:07→20:25)
[2019-06-09 03:16] LABS: HEMATOCRIT 29.7 % (42.0-52.0); HEMOGLOBIN 9.8 g/dL (14.0-18.0)
[2019-06-09] MEDS: METRONIDAZOLE 500 MG PREMIX 100 ML IV SCH (05:08)
[2019-06-09] MEDS: METOCLOPRAMIDE HCL 10MG/2ML VIAL IV SCH ×4 (05:08→17:13)
[2019-06-09] MEDS: INSULIN LISPRO (HIGH DOSE) 100 UNITS/ML SUBCUT SCH ×4 (05:11→17:14)
[2019-06-09 06:52] LABS: CHLORIDE 123 mEq/L (98-107)
[2019-06-09 06:58] LABS: BASOPHILS % 0.4 % (0.0-2.0); EOSINOPHILS % 1.7 % (0.0-5.0); HEMATOCRIT. 30.8 % (42.0-52.0); HEMOGLOBIN. 9.6 g/dL (14.0-18.0); MEAN CORPUSCULAR HEMOGLOBIN 29.8 pg (28.0-32.0); MEAN CORPUSCULAR VOLUME 95.3 fL (80.0-94.0); MEAN PLATELET VOLUME 9.8 fl (7.4-10.4); MONOCYTES % 5.9 % (2.0-8.0); PLATELET 155 x1000/uL (130-400); RED BLOOD CELL COUNT 3.23 mill/uL (4.7-6.1); RED CELL DISTRIBUTION WIDTH 16.7 % (11.6-14.6)
[2019-06-09] MEDS: DEXTROSE 5% WATER 1,000 ML IV SCH ×2 (07:30→21:46)
[2019-06-09] MEDS: FAMOTIDINE 20MG/2ML VIAL IV SCH (09:09)
[2019-06-09] MEDS: DESMOPRESSIN ACETATE 4MCG/ML AMP SUBCUT SCH ×2 (09:09→21:48)
[2019-06-09] MEDS: PETROLATUM,WHITE OPHTH OINT 3.5GM BOTHEYE SCH ×2 (09:09→21:48)
[2019-06-09] MEDS: METOPROLOL TARTRATE 50MG TABLET PO SCH ×2 (09:09→21:46)
[2019-06-10] VITALS (12 sets, daily range): BP systolic 119–134; BP diastolic 67–76
[2019-06-10] MEDS: IPRATROPIUM BROMIDE (0.02%) 0.5MG/2.5ML NEB HHN SCH ×5 (00:14→20:33)
[2019-06-10] MEDS: SUCRALFATE 1 G/10 ML UDC NG SCH ×4 (01:25→18:07)
[2019-06-10] MEDS: METOCLOPRAMIDE HCL 10MG/2ML VIAL IV SCH ×4 (01:25→18:07)
[2019-06-10] MEDS: POLYVINYL ALCOHOL OPHTH DROPS 15ML BOTHEYE SCH ×4 (05:18→17:05)
[2019-06-10] MEDS: BLOOD SUGAR DIAGNOSTIC STRIP TEST SCH ×4 (05:18→17:23)
[2019-06-10] MEDS: INSULIN LISPRO (HIGH DOSE) 100 UNITS/ML SUBCUT SCH ×4 (05:24→18:00)
[2019-06-10 07:10] LABS: BASOPHILS % 0.3 % (0.0-2.0); EOSINOPHILS % 2.4 % (0.0-5.0); HEMATOCRIT. 31.3 % (42.0-52.0); LYMPHOCYTES % 9.9 % (20.0-50.0); MEAN CORPUSCULAR HEMOGLOBIN 29.9 pg (28.0-32.0); MEAN CORPUSCULAR VOLUME 93.6 fL (80.0-94.0); MEAN PLATELET VOLUME 9.8 fl (7.4-10.4); MONOCYTES % 5.5 % (2.0-8.0); NEUTROPHILS % 81.9 % (40.0-76.0); PLATELET 184 x1000/uL (130-400); RED BLOOD CELL COUNT 3.34 mill/uL (4.7-6.1); RED CELL DISTRIBUTION WIDTH 16.2 % (11.6-14.6)
[2019-06-10 07:15] LABS: CHLORIDE 123 mEq/L (98-107)
[2019-06-10] MEDS: FAMOTIDINE 20MG/2ML VIAL IV SCH (08:17)
[2019-06-10] MEDS: DESMOPRESSIN ACETATE 4MCG/ML AMP SUBCUT SCH ×2 (08:17→20:04)
[2019-06-10] MEDS: PETROLATUM,WHITE OPHTH OINT 3.5GM BOTHEYE SCH ×2 (08:17→20:03)
[2019-06-10] MEDS: METOPROLOL TARTRATE 50MG TABLET PO SCH ×2 (08:18→20:03)
[2019-06-10] MEDS ORDERED: POTASSIUM CHLORIDE 20MEQ/PACKET PO NR (09:30)
[2019-06-10] MEDS: DEXTROSE 5% WATER 1,000 ML IV SCH (10:26)
[2019-06-10] MEDS: CLONIDINE HCL 0.2MG/24HR PATCH TD SCH (11:07)
[2019-06-11] VITALS: BP 123/67
== END 2019-06-11 08:27 | DRG 3 ==
LOC: ER 10:00 → EDBEDREQ 10:40 → EDBEDREQSVC 10:46 → 5EST 10:58 → EDBEDREQ 11:02 → ENRESERV 12:33 → 5EST 05-27 14:43 → CVICU 05-28 15:43 → 5EST 06-03 23:54
PROVIDERS: ADMIT Hospitalist; ATTEND Hospitalist
PROC: 4A00X4Z Measurement of Central Nervous Electrical Activity, External Approach (ICD-10-PCS; 2019-05-21)
PROC: 5A1955Z Respiratory Ventilation, Greater than 96 Consecutive Hours (ICD-10-PCS; principal; 2019-05-27)
PROC: 0BH17EZ Insertion of Endotracheal Airway into Trachea, Via Natural or Artificial Opening (ICD-10-PCS; 2019-05-27)
PROC: 02HV33Z Insertion of Infusion Device into Superior Vena Cava, Percutaneous Approach (ICD-10-PCS; 2019-05-28)
PROC: B548ZZA Ultrasonography of Superior Vena Cava, Guidance (ICD-10-PCS; 2019-05-28)
PROC: 30233N1 Transfusion of Nonautologous Red Blood Cells into Peripheral Vein, Percutaneous Approach (ICD-10-PCS; 2019-05-30)
PROC: 0B110F4 Bypass Trachea to Cutaneous with Tracheostomy Device, Open Approach (ICD-10-PCS; 2019-06-02)
PROC: 0GBJ0ZZ Excision of Thyroid Gland Isthmus, Open Approach (ICD-10-PCS; 2019-06-02)
PROC: 0DH63UZ Insertion of Feeding Device into Stomach, Percutaneous Approach (ICD-10-PCS; 2019-06-05)
DX: A41.9 Sepsis, unspecified organism (principal); I21.4 Non-ST elevation (NSTEMI) myocardial infarction; E43 Unspecified severe protein-calorie malnutrition; J18.1 Lobar pneumonia, unspecified organism; J96.01 Acute respiratory failure with hypoxia; G92 Toxic encephalopathy; K29.71 Gastritis, unspecified, with bleeding; E87.0 Hyperosmolality and hypernatremia; E87.2 Acidosis; M62.82 Rhabdomyolysis; D68.9 Coagulation defect, unspecified; I13.0 Hypertensive heart and chronic kidney disease with heart failure and stage 1 through stage 4 chronic kidney disease, or unspecified chronic kidney disease; Z99.11 Dependence on respirator [ventilator] status; N17.9 Acute kidney failure, unspecified; E87.1 Hypo-osmolality and hyponatremia; J44.0 Chronic obstructive pulmonary disease with (acute) lower respiratory infection; E83.42 Hypomagnesemia; I50.9 Heart failure, unspecified; G40.909 Epilepsy, unspecified, not intractable, without status epilepticus; R65.20 Severe sepsis without septic shock; N18.9 Chronic kidney disease, unspecified; E11.22 Type 2 diabetes mellitus with diabetic chronic kidney disease; E66.9 Obesity, unspecified; E78.5 Hyperlipidemia, unspecified; E86.0 Dehydration; L89.819 Pressure ulcer of head, unspecified stage; S51.812A Laceration without foreign body of left forearm, initial encounter; S81.012A Laceration without foreign body, left knee, initial encounter; R16.0 Hepatomegaly, not elsewhere classified; D50.0 Iron deficiency anemia secondary to blood loss (chronic); B88.8 Other specified infestations; E87.6 Hypokalemia; F31.9 Bipolar disorder, unspecified; F99 Mental disorder, not otherwise specified; X58.XXXA Exposure to other specified factors, initial encounter; J32.0 Chronic maxillary sinusitis; M19.90 Unspecified osteoarthritis, unspecified site; K44.9 Diaphragmatic hernia without obstruction or gangrene; K21.0 Gastro-esophageal reflux disease with esophagitis; R13.12 Dysphagia, oropharyngeal phase; S90.821A Blister (nonthermal), right foot, initial encounter; T50.2X5A Adverse effect of carbonic-anhydrase inhibitors, benzothiadiazides and other diuretics, initial encounter; Z68.30 Body mass index [BMI] 30.0-30.9, adult; Z79.84 Long term (current) use of oral hypoglycemic drugs; Z79.899 Other long term (current) drug therapy; Z78.1 Physical restraint status; Y93.89 Activity, other specified; Y92.89 Other specified places as the place of occurrence of the external cause; Y99.8 Other external cause status
CPT/HCPCS: 31500; 36415; 36600; 70551; 71045; 71250; 74018; 74176; 76700; 76770; 76937; 78278; 78580; 80048; 80061; 80076; 80178; 80202; 80305; 80320; 81003; 82140; 82248; 82330; 82375; 82550; 82553; 82607; 82652; 82728; 82746; 82805; 82962; 83036; 83520; 83540; 83550; 83605; 83735; 83880; 83970; 84100; 84134; 84145; 84153; 84155; 84165; 84295; 84439; 84443; 84478; 84484; 85014; 85018; 85379; 85651; 86038; 86256; 86635; 86803; 86850; 86900; 86920; 87070; 87340; 87389; 87804; 87899; 93005; 93306; 93970; 94002; 94003; 94640; 94667; 97161; 99291; A6261; A9560; C1725; C9113; J0290; J0360; J0692; J0696; J1630; J1650; J1815; J1940; J1956; J2060; J2250; J2270; J2370; J2543; J2597; J2704; J2765; J3010; J3370; J3411; J3430; J3475; J3480; J3490; J7030; J7040; J7050; J7060; J7070; J7608; J7620; P9016; G0103; G0480

== ENCOUNTER 2019-10-12 19:10 | Inpatient (IN) | payer MEDICARE, MEDICAID ==
[~2019-10-12] VITALS: Ht 172.7 cm; Wt 78.0 kg
[~2019-10-12 19:10] MED LIST: BENZ1TAB7 MT; CLON0.2T MT; CLON0.5T23 MT; DOCU250C69 MT; FERR325T6 MT; FLUT15.844 BOTHNSTRLS; GABA-531 MT; GEMF600T5 MT; HALO5TAB MT; ISOS30TA6 MT; LITH300C3 MT; METF-416 MT; OMEP20CA14 MT; OMEP20TA2 MT
[2019-10-12] MEDS ORDERED: SODIUM CHLORIDE 0.9% 1,000 ML IV ONE (20:36)
[2019-10-12 21:16] LABS: BASOPHILS % 0.3 % (0.0-2.0); EOSINOPHILS % 0.3 % (0.0-5.0); HEMATOCRIT. 36.2 % (42.0-52.0); HEMOGLOBIN. 11.5 g/dL (14.0-18.0); LYMPHOCYTES % 12.1 % (20.0-50.0); MEAN CORPUSCULAR HEMOGLOBIN 25.3 pg (28.0-32.0); MEAN CORPUSCULAR VOLUME 79.9 fL (80.0-94.0); MEAN PLATELET VOLUME 8.9 fl (7.4-10.4); MONOCYTES % 9.8 % (2.0-8.0); NEUTROPHILS % 77.5 % (40.0-76.0); PLATELET 352 x1000/uL (130-400); RED BLOOD CELL COUNT 4.53 mill/uL (4.7-6.1); RED CELL DISTRIBUTION WIDTH 19.4 % (11.6-14.6)
[2019-10-12 21:19] LABS: CLARITY URINE CLEAR (CLEAR); COLOR URINE YELLOW (YELLOW); KETONES URINE TRACE (NEGATIVE); LEUKOCYTE ESTERASE URINE 1+ (NEGATIVE); NITRITE URINE NEGATIVE (NEGATIVE); OCCULT BLOOD URINE NEGATIVE (NEGATIVE); PROTEIN URINE TRACE (NEGATIVE); SPECIFIC GRAVITY URINE 1.018 (1.005-1.030); UROBILINOGEN URINE 0.2 E.U./dL (0.2-1.0)
[2019-10-12 21:22] LABS: CHLORIDE 113 mEq/L (98-107)
[2019-10-12 21:27] LABS: PARTIAL THROMBOPLASTIN TIME 29.8 sec (23.4-31.0); PROTHROMBIN TIME 10.5 sec (9.6-11.0)
[2019-10-12 21:29] LABS: PHOSPHORUS 2.4 mg/dL (2.5-4.9)
[2019-10-12] MEDS ORDERED: KCL 20MEQ/100ML PREMIX 100 ML IV ONE (21:45)
[2019-10-13] MEDS ORDERED: ONDANSETRON HCL 4MG/2ML INJ IV PRN (07:00)
[2019-10-13] MEDS ORDERED: MORPHINE SULFATE 2 MG/ML CPJ (NOT FOR IM USE) IV PRN (07:00)
[2019-10-13] MEDS ORDERED: ACETAMINOPHEN 650MG SUPP PR PRN (07:00)
[2019-10-13 08:00] VITALS: BP 141/59
[2019-10-13 08:20] VITALS: BP 141/59
[2019-10-13] MEDS ORDERED: ENOXAPARIN 40MG/0.4ML SYR SUBCUT SCH (09:00)
[2019-10-13 12:00] VITALS: BP 64/89
[2019-10-13] MEDS: PANTOPRAZOLE SODIUM 40 MG/VIAL IV SCH (12:51)
[2019-10-13 16:00] VITALS: BP 161/89
[2019-10-13 16:21] LABS: CHLORIDE 119 mEq/L (98-107)
[2019-10-13] MEDS: DEXT 5%/0.45% NACL KCL 10MEQ/L 1,000 ML IV SCH ×2 (18:50→21:47)
[2019-10-13 20:00] VITALS: BP 164/92
[2019-10-13] MEDS: ENALAPRIL 1.25 MG in DEXTROSE 5% WATER 49 ML IV PRN (21:05)
[2019-10-13 21:45] VITALS: BP 137/79
[2019-10-13] MEDS: LORAZEPAM 2MG/ML CPJ IV PRN (21:47)
[2019-10-14] VITALS: BP 154/94
[2019-10-14 04:00] VITALS: BP 138/80
[2019-10-14 05:36] LABS: PARTIAL THROMBOPLASTIN TIME 28.3 sec (23.4-31.0); PROTHROMBIN TIME 10.7 sec (9.6-11.0)
[2019-10-14 05:44] LABS: CHLORIDE 120 mEq/L (98-107)
[2019-10-14 05:52] LABS: PHOSPHORUS 2.5 mg/dL (2.5-4.9)
[2019-10-14 06:05] LABS: BASOPHILS % 0.4 % (0.0-2.0); HEMATOCRIT. 35.5 % (42.0-52.0); HEMOGLOBIN. 11.3 g/dL (14.0-18.0); LYMPHOCYTES % 12.8 % (20.0-50.0); MEAN CORPUSCULAR HEMOGLOBIN 25.6 pg (28.0-32.0); MEAN CORPUSCULAR VOLUME 80.7 fL (80.0-94.0); MONOCYTES % 9.2 % (2.0-8.0); NEUTROPHILS % 75.6 % (40.0-76.0); PLATELET 350 x1000/uL (130-400); RED CELL DISTRIBUTION WIDTH 19.1 % (11.6-14.6)
[2019-10-14 08:00] VITALS: BP 151/86
[2019-10-14] MEDS ORDERED: POTASSIUM CHLORIDE INJ 40 MEQ in DEXT 5% WATER 500 ML IV SCH (08:00)
[2019-10-14] MEDS: PANTOPRAZOLE SODIUM 40 MG/VIAL IV SCH (09:25)
[2019-10-14 12:00] VITALS: BP 151/83
[2019-10-14 16:00] VITALS: BP 152/87
[2019-10-14 20:00] VITALS: BP 147/86
[2019-10-14] MEDS: POTASSIUM CHLORIDE INJ 40 MEQ in DEXTROSE 5% WATER 1,000 ML IV SCH (20:14)
[2019-10-14] MEDS: LORAZEPAM 2MG/ML CPJ IV PRN (20:15)
[2019-10-14] MEDS ORDERED: KCL 20MEQ/100ML PREMIX 100 ML IV NR (23:00)
[2019-10-15] VITALS: BP 159/91
[2019-10-15 04:00] VITALS: BP 162/92
[2019-10-15] MEDS: ENALAPRIL 1.25 MG in DEXTROSE 5% WATER 49 ML IV PRN (06:35)
[2019-10-15] MEDS: POTASSIUM CHLORIDE INJ 40 MEQ in DEXTROSE 5% WATER 1,000 ML IV SCH (06:35)
[2019-10-15 07:48] LABS: CHLORIDE 123 mEq/L (98-107)
[2019-10-15 08:00] VITALS: BP 141/80
[2019-10-15 08:00] LABS: BASOPHILS % 0.3 % (0.0-2.0); EOSINOPHILS % 4.2 % (0.0-5.0); HEMATOCRIT. 34.5 % (42.0-52.0); MEAN CORPUSCULAR HEMOGLOBIN 25.5 pg (28.0-32.0); MEAN CORPUSCULAR VOLUME 79.8 fL (80.0-94.0); MEAN PLATELET VOLUME 8.8 fl (7.4-10.4); MONOCYTES % 8.7 % (2.0-8.0); NEUTROPHILS % 71.8 % (40.0-76.0); PLATELET 360 x1000/uL (130-400); RED BLOOD CELL COUNT 4.32 mill/uL (4.7-6.1); RED CELL DISTRIBUTION WIDTH 19.6 % (11.6-14.6)
[2019-10-15] MEDS: PANTOPRAZOLE SODIUM 40 MG/VIAL IV SCH (09:42)
[2019-10-15] MEDS ORDERED: POTASSIUM CHLORIDE INJ 40 MEQ in DEXT 5% WATER 500 ML IV ONE (09:45)
[2019-10-15] MEDS ORDERED: KCL 20MEQ/100ML PREMIX 100 ML IV SCH ×2 (11:00→14:00)
[2019-10-15] MEDS ORDERED: BACTERIOSTATIC SODIUM CHLORIDE 0.9% 30ML VIAL IJ ONE (11:23)
[2019-10-15 12:00] VITALS: BP 142/84
[2019-10-15] MEDS ORDERED: CEFAZOLIN 1000MG PREMIX 50 ML IV ONE ×2 (15:48→16:30)
[2019-10-15 16:00] VITALS: BP 150/83
[2019-10-15] MEDS ORDERED: MIDAZOLAM HCL 5 MG/5 ML VIAL ONE (16:08)
[2019-10-15] MEDS ORDERED: FENTANYL CITRATE/PF 50MCG/ML 2ML VIAL ONE (16:08)
[2019-10-15] MEDS ORDERED: MIDAZOLAM HCL 5 MG/5 ML VIAL IV PRN (16:16)
[2019-10-15] MEDS ORDERED: FENTANYL CITRATE/PF 50MCG/ML 2ML VIAL IV PRN (16:17)
[2019-10-15 20:00] VITALS: BP 145/86
[2019-10-16] VITALS (7 sets, daily range): BP systolic 151–167; BP diastolic 86–102
[2019-10-16] MEDS: POTASSIUM CHLORIDE INJ 40 MEQ in DEXTROSE 5% WATER 1,000 ML IV SCH (03:09)
[2019-10-16] MEDS: LORAZEPAM 2MG/ML CPJ IV PRN ×2 (05:15→12:16)
[2019-10-16 06:54] LABS: BASOPHILS % 0.2 % (0.0-2.0); EOSINOPHILS % 2.1 % (0.0-5.0); HEMATOCRIT. 35.8 % (42.0-52.0); HEMOGLOBIN. 11.3 g/dL (14.0-18.0); LYMPHOCYTES % 14.9 % (20.0-50.0); MEAN CORPUSCULAR HEMOGLOBIN 25.4 pg (28.0-32.0); MEAN CORPUSCULAR VOLUME 80.2 fL (80.0-94.0); MEAN PLATELET VOLUME 8.7 fl (7.4-10.4); MONOCYTES % 7.3 % (2.0-8.0); NEUTROPHILS % 75.5 % (40.0-76.0); PLATELET 381 x1000/uL (130-400); RED BLOOD CELL COUNT 4.46 mill/uL (4.7-6.1); RED CELL DISTRIBUTION WIDTH 19.2 % (11.6-14.6)
[2019-10-16 08:07] LABS: CHLORIDE 127 mEq/L (98-107)
[2019-10-16 08:12] LABS: PHOSPHORUS 2.7 mg/dL (2.5-4.9)
[2019-10-16] MEDS: PANTOPRAZOLE SODIUM 40 MG/VIAL IV SCH (09:39)
[2019-10-16] MEDS ORDERED: DEXT 5% WATER + KCL 20MEQ/L 1,000 ML IV SCH (13:00)
[2019-10-17] VITALS: BP 142/92
[2019-10-17] MEDS: POTASSIUM CHLORIDE INJ 40 MEQ in DEXTROSE 5% WATER 1,000 ML IV SCH (03:05)
[2019-10-17 04:00] VITALS: BP 164/88
[2019-10-17] MEDS: ENALAPRIL 1.25 MG in DEXTROSE 5% WATER 49 ML IV PRN (05:21)
[2019-10-17 07:19] LABS: CHLORIDE 127 mEq/L (98-107)
[2019-10-17 07:22] LABS: BASOPHILS % 0.3 % (0.0-2.0); EOSINOPHILS % 3.9 % (0.0-5.0); HEMATOCRIT. 32.6 % (42.0-52.0); HEMOGLOBIN. 10.6 g/dL (14.0-18.0); LYMPHOCYTES % 19.1 % (20.0-50.0); MEAN CORPUSCULAR HEMOGLOBIN 25.8 pg (28.0-32.0); MEAN CORPUSCULAR VOLUME 79.8 fL (80.0-94.0); MEAN PLATELET VOLUME 8.8 fl (7.4-10.4); MONOCYTES % 7.8 % (2.0-8.0); NEUTROPHILS % 68.9 % (40.0-76.0); PLATELET 337 x1000/uL (130-400); RED BLOOD CELL COUNT 4.09 mill/uL (4.7-6.1); RED CELL DISTRIBUTION WIDTH 19.1 % (11.6-14.6)
[2019-10-17 08:00] VITALS: BP 136/85
[2019-10-17] MEDS: PANTOPRAZOLE SODIUM 40 MG/VIAL IV SCH (08:44)
[2019-10-17 12:00] VITALS: BP 155/88
[2019-10-17 16:00] VITALS: BP 164/99
[2019-10-17 17:09] VITALS: BP 164/99
[2019-10-17] MEDS ORDERED: DEXTROSE 5% WATER 1,000 ML IV SCH (18:30)
== END 2019-10-17 20:25 | DRG 393 ==
LOC: ER 19:10 → 6EST 23:42 → EDBEDREQSVC 23:55 → EDBEDREQ 23:55 → ENRESERV 10-13 07:39
PROVIDERS: ADMIT Internal Medicine; ATTEND Internal Medicine
PROC: 0D20XUZ Change Feeding Device in Upper Intestinal Tract, External Approach (ICD-10-PCS; principal; 2019-10-15)
DX: K94.23 Gastrostomy malfunction (principal); G92 Toxic encephalopathy; E46 Unspecified protein-calorie malnutrition; E87.0 Hyperosmolality and hypernatremia; N17.9 Acute kidney failure, unspecified; N39.0 Urinary tract infection, site not specified; G93.40 Encephalopathy, unspecified; E87.1 Hypo-osmolality and hyponatremia; Z99.11 Dependence on respirator [ventilator] status; E11.9 Type 2 diabetes mellitus without complications; K44.9 Diaphragmatic hernia without obstruction or gangrene; J44.9 Chronic obstructive pulmonary disease, unspecified; G40.909 Epilepsy, unspecified, not intractable, without status epilepticus; E87.6 Hypokalemia; K29.70 Gastritis, unspecified, without bleeding; I10 Essential (primary) hypertension; K21.0 Gastro-esophageal reflux disease with esophagitis; L89.229 Pressure ulcer of left hip, unspecified stage; M19.90 Unspecified osteoarthritis, unspecified site; D64.9 Anemia, unspecified; L89.219 Pressure ulcer of right hip, unspecified stage; S40.812A Abrasion of left upper arm, initial encounter; X58.XXXA Exposure to other specified factors, initial encounter; E78.5 Hyperlipidemia, unspecified; R13.12 Dysphagia, oropharyngeal phase; Z79.84 Long term (current) use of oral hypoglycemic drugs; Z79.899 Other long term (current) drug therapy; Z86.73 Personal history of transient ischemic attack (TIA), and cerebral infarction without residual deficits; Y93.89 Activity, other specified; Y92.89 Other specified places as the place of occurrence of the external cause; Y99.8 Other external cause status; Z68.26 Body mass index [BMI] 26.0-26.9, adult
CPT/HCPCS: 36415; 71045; 80048; 80053; 81003; 82962; 83735; 83880; 83930; 84100; 84132; 84443; 84484; 85025; 93005; 93970; 96365; 96368; 96372; 99285; C9113; J0690; J1650; J2060; J2250; J2270; J3010; J3480; J3490; J7030; J7060; J7070

== ENCOUNTER 2019-10-27 08:16 | Inpatient (IN) | payer MEDICARE, MEDICAID ==
[~2019-10-27] VITALS: Ht 170.2 cm; Wt 72.6 kg
[2019-10-27] MEDS ORDERED: ACETAMINOPHEN 650MG SUPP PR STA (08:24)
[2019-10-27] MEDS ORDERED: PIPERACILLIN/TAZ 3.375G PREMIX 50 ML IV ONE (08:30)
[2019-10-27] MEDS ORDERED: VANCOMYCIN 1 G PREMIX 200 ML IV ONE (08:30)
[2019-10-27] MEDS ORDERED: SODIUM CHLORIDE 0.9% 1000ML BAG (SEPSIS BOLUS) IV ONE (08:30)
[2019-10-27 08:56] LABS: HEMATOCRIT. 38.3 % (42.0-52.0); HEMOGLOBIN. 11.6 g/dL (14.0-18.0); MEAN CORPUSCULAR VOLUME 82.4 fL (80.0-94.0); MEAN PLATELET VOLUME 11.8 fl (7.4-10.4); PLATELET 299 x1000/uL (130-400); RED BLOOD CELL COUNT 4.64 mill/uL (4.7-6.1)
[2019-10-27 09:03] LABS: INR 1.1; PROTHROMBIN TIME 10.9 sec (9.6-11.0)
[2019-10-27 09:11] LABS: CHLORIDE 142 mEq/L (98-107)
[2019-10-27 09:24] LABS: PLATELET ESTIMATE NORMAL
[2019-10-27 09:52] LABS: BG BASE EXCESS -3.6 mmol/L (-2.0-2.0); BG CARBOXYHEMOGLOBIN 0.2 % (0.5-1.5); BG DEOXYHEMOGLOBIN 5.7 % (0.0-5.0); BG FRACTION INSPIRED OXYGEN 100; BG HCO3 ACT 18.3 mmol/L (22.0-26.0); BG METHEMOGLOBIN 0.3 % (0.0-1.5); BG OXYGEN SATURATION 94.3 % (92.0-98.5); BG OXYHEMOGLOBIN 93.8 % (94.0-97.0); BG PCO2 24.3 mmHg (35.0-45.0); BG PH 7.495 (7.350-7.450); BG PO2 73.7 mmHg (75.0-100.0); BG SAMPLE SITE RIGHT BRACHIAL; BG TOTAL HEMOGLOBIN 11.2 g/dL (12.0-18.0); BG VENT MODE MASK - NRB
[2019-10-27 11:20] LABS: CLARITY URINE CLOUDY (CLEAR); COLOR URINE YELLOW (YELLOW); KETONES URINE NEGATIVE (NEGATIVE); LEUKOCYTE ESTERASE URINE 2+ (NEGATIVE); NITRITE URINE NEGATIVE (NEGATIVE); OCCULT BLOOD URINE TRACE (NEGATIVE); PROTEIN URINE 1+ (NEGATIVE); SPECIFIC GRAVITY URINE 1.017 (1.005-1.030); UROBILINOGEN URINE 0.2 E.U./dL (0.2-1.0)
[2019-10-27] MEDS ORDERED: CLONIDINE 0.1MG TABLET PO PRN (11:45)
[2019-10-27] MEDS ORDERED: MULTIVITAMINS,THER W-MINERALS TABLET PO SCH (11:45)
[2019-10-27] MEDS ORDERED: MAGNESIUM/ALUMINUM HYDROXIDE/SIMETHICONE 30ML UDC PO PRN (11:45)
[2019-10-27] MEDS ORDERED: DOCUSATE SODIUM 100MG CAPSULE PO PRN (11:45)
[2019-10-27] MEDS ORDERED: ONDANSETRON HCL 4MG/2ML INJ IV PRN (11:45)
[2019-10-27] MEDS ORDERED: IPRATROPIUM/ALBUTEROL 0.5-3(2.5)MG/3ML NEB NEB PRN (11:45)
[2019-10-27] MEDS ORDERED: LORAZEPAM 2MG/ML CPJ IV PRN (11:45)
[2019-10-27] MEDS ORDERED: CEFTRIAXONE 1 G PREMIX 50 ML IV SCH (12:15)
[2019-10-27] MEDS: AZITHROMYCIN 500 MG in DEXT 5% WATER 250 ML IV SCH (12:43)
[2019-10-27 12:49] LABS: BG BASE EXCESS -3.3 mmol/L (-2.0-2.0); BG BILEVEL POS AIRWAY PRESSURE 15/5; BG CARBOXYHEMOGLOBIN 0.2 % (0.5-1.5); BG DEOXYHEMOGLOBIN 4.3 % (0.0-5.0); BG FRACTION INSPIRED OXYGEN 40; BG HCO3 ACT 20.3 mmol/L (22.0-26.0); BG METHEMOGLOBIN 0.2 % (0.0-1.5); BG OXYGEN SATURATION 95.7 % (92.0-98.5); BG OXYHEMOGLOBIN 95.3 % (94.0-97.0); BG PCO2 31.5 mmHg (35.0-45.0); BG PH 7.426 (7.350-7.450); BG SAMPLE SITE RIGHT BRACHIAL; BG TOTAL HEMOGLOBIN 10.9 g/dL (12.0-18.0); BG VENT MODE MASK - BIPAP; BG VENT RATE 16 set
[2019-10-27] MEDS: CEFTRIAXONE 1 G PREMIX 50 ML IV SCH (12:50)
[2019-10-27] MEDS ORDERED: ENOXAPARIN 30MG/0.3ML SYR SUBCUT SCH (13:00)
[2019-10-27] MEDS: DEXTROSE 5% WATER 1,000 ML IV SCH (18:16)
[2019-10-27 22:00] VITALS: BP 120/72
[2019-10-27 23:29] VITALS: BP 135/66
[2019-10-28] VITALS (12 sets, daily range): BP systolic 100–136; BP diastolic 61–85
[2019-10-28] MEDS ORDERED: DEXTROSE 50% WATER 50ML SYRINGE IV PRN (01:30)
[2019-10-28] MEDS: DEXTROSE 5% WATER 1,000 ML IV SCH ×2 (02:46→15:40)
[2019-10-28] MEDS: BLOOD SUGAR DIAGNOSTIC STRIP TEST SCH ×4 (06:31→21:00)
[2019-10-28 07:01] LABS: BASOPHILS % 0.1 % (0.0-2.0); EOSINOPHILS % 0.2 % (0.0-5.0); HEMATOCRIT. 29.5 % (42.0-52.0); LYMPHOCYTES % 9.1 % (20.0-50.0); MEAN CORPUSCULAR HEMOGLOBIN 25.1 pg (28.0-32.0); MEAN CORPUSCULAR VOLUME 82.1 fL (80.0-94.0); MEAN PLATELET VOLUME 11.6 fl (7.4-10.4); MONOCYTES % 3.7 % (2.0-8.0); NEUTROPHILS % 86.9 % (40.0-76.0); PLATELET 218 x1000/uL (130-400); RED BLOOD CELL COUNT 3.59 mill/uL (4.7-6.1); RED CELL DISTRIBUTION WIDTH 19.2 % (11.6-14.6)
[2019-10-28 07:14] LABS: LDL CHOLESTEROL 31 mg/dL (5-100)
[2019-10-28 07:18] LABS: HDL CHOLESTEROL 25 mg/dL (40-59)
[2019-10-28] MEDS: INSULIN LISPRO 100 UNITS/ML SUBCUT SCH ×4 (07:20→21:00)
[2019-10-28 08:14] LABS: BG BASE EXCESS -3.5 mmol/L (-2.0-2.0); BG CARBOXYHEMOGLOBIN 0.3 % (0.5-1.5); BG DEOXYHEMOGLOBIN 2.9 % (0.0-5.0); BG FRACTION INSPIRED OXYGEN 28; BG HCO3 ACT 20.2 mmol/L (22.0-26.0); BG METHEMOGLOBIN 0.3 % (0.0-1.5); BG OXYGEN SATURATION 97.1 % (92.0-98.5); BG OXYHEMOGLOBIN 96.5 % (94.0-97.0); BG PCO2 32.1 mmHg (35.0-45.0); BG PH 7.416 (7.350-7.450); BG PO2 94.3 mmHg (75.0-100.0); BG SAMPLE SITE RIGHT BRACHIAL; BG TOTAL HEMOGLOBIN 12.5 g/dL (12.0-18.0); BG VENT MODE NASAL CANNULA
[2019-10-28] MEDS: MULTIVITAMINS,THER W-MINERALS TABLET PO SCH (09:00)
[2019-10-28 10:36] LABS: CHLORIDE 147 mEq/L (98-107)
[2019-10-28] MEDS: ENOXAPARIN 40MG/0.4ML SYR SUBCUT SCH (15:53)
[2019-10-28] MEDS: CEFTRIAXONE 1 G PREMIX 50 ML IV SCH (15:53)
[2019-10-28] MEDS: AZITHROMYCIN 500 MG in DEXT 5% WATER 250 ML IV SCH (18:18)
[2019-10-29] VITALS (15 sets, daily range): BP systolic 109–132; BP diastolic 55–73
[2019-10-29] MEDS: DEXTROSE 5% WATER 1,000 ML IV SCH ×2 (05:55→13:24)
[2019-10-29 06:36] LABS: BASOPHILS % 0.3 % (0.0-2.0); EOSINOPHILS % 1.5 % (0.0-5.0); HEMOGLOBIN. 11.5 g/dL (14.0-18.0); MEAN CORPUSCULAR HEMOGLOBIN 25.3 pg (28.0-32.0); MEAN CORPUSCULAR VOLUME 83.2 fL (80.0-94.0); MEAN PLATELET VOLUME 12.1 fl (7.4-10.4); MONOCYTES % 4.7 % (2.0-8.0); NEUTROPHILS % 82.5 % (40.0-76.0); PLATELET 171 x1000/uL (130-400); RED BLOOD CELL COUNT 4.56 mill/uL (4.7-6.1)
[2019-10-29] MEDS: BLOOD SUGAR DIAGNOSTIC STRIP TEST SCH ×4 (06:58→22:01)
[2019-10-29] MEDS: INSULIN LISPRO 100 UNITS/ML SUBCUT SCH ×4 (07:20→22:01)
[2019-10-29] MEDS: MULTIVITAMINS,THER W-MINERALS TABLET PO SCH (09:00)
[2019-10-29] MEDS: AZITHROMYCIN 500 MG in DEXT 5% WATER 250 ML IV SCH (10:39)
[2019-10-29] MEDS: CEFTRIAXONE 1 G PREMIX 50 ML IV SCH (15:11)
[2019-10-29] MEDS: ENOXAPARIN 40MG/0.4ML SYR SUBCUT SCH (15:12)
[2019-10-29 17:11] LABS: ANTI-NUCLEAR ANTIBODIES DIRECT Negative (Negative)
[2019-10-30] VITALS (15 sets, daily range): BP systolic 114–143; BP diastolic 51–77
[2019-10-30] MEDS: DEXTROSE 5% WATER 1,000 ML IV SCH ×2 (04:49→15:59)
[2019-10-30] MEDS: BLOOD SUGAR DIAGNOSTIC STRIP TEST SCH ×4 (05:46→21:41)
[2019-10-30 06:38] LABS: CHLORIDE 145 mEq/L (98-107)
[2019-10-30] MEDS: INSULIN LISPRO 100 UNITS/ML SUBCUT SCH ×4 (07:20→21:41)
[2019-10-30 08:00] LABS: BASOPHILS % 0.2 % (0.0-2.0); EOSINOPHILS % 2.1 % (0.0-5.0); HEMATOCRIT. 30.8 % (42.0-52.0); HEMOGLOBIN. 9.5 g/dL (14.0-18.0); LYMPHOCYTES % 13.7 % (20.0-50.0); MEAN CORPUSCULAR HEMOGLOBIN 25.6 pg (28.0-32.0); MEAN PLATELET VOLUME 12.8 fl (7.4-10.4); MONOCYTES % 6.2 % (2.0-8.0); NEUTROPHILS % 77.8 % (40.0-76.0); PLATELET 242 x1000/uL (130-400); RED BLOOD CELL COUNT 3.71 mill/uL (4.7-6.1); RED CELL DISTRIBUTION WIDTH 19.5 % (11.6-14.6)
[2019-10-30] MEDS: MULTIVITAMINS,THER W-MINERALS TABLET PO SCH (08:42)
[2019-10-30] MEDS: AZITHROMYCIN 500 MG in DEXT 5% WATER 250 ML IV SCH (08:42)
[2019-10-30] MEDS: CEFTRIAXONE 1 G PREMIX 50 ML IV SCH (15:40)
[2019-10-30] MEDS: ENOXAPARIN 40MG/0.4ML SYR SUBCUT SCH (16:40)
[2019-10-30] MEDS: DESMOPRESSIN ACETATE 0.1MG TABLET PO SCH (21:39)
[2019-10-31] VITALS (7 sets, daily range): BP systolic 106–122; BP diastolic 55–66
[2019-10-31] MEDS: BLOOD SUGAR DIAGNOSTIC STRIP TEST SCH ×4 (06:35→21:06)
[2019-10-31] MEDS: INSULIN LISPRO 100 UNITS/ML SUBCUT SCH ×4 (07:33→21:00)
[2019-10-31] MEDS: MULTIVITAMINS,THER W-MINERALS TABLET PO SCH (08:35)
[2019-10-31] MEDS: DESMOPRESSIN ACETATE 0.1MG TABLET PO SCH ×2 (08:35→21:07)
[2019-10-31] MEDS: AZITHROMYCIN 500 MG in DEXT 5% WATER 250 ML IV SCH (11:02)
[2019-10-31 12:43] LABS: BASOPHILS % 0.2 % (0.0-2.0); EOSINOPHILS % 1.9 % (0.0-5.0); HEMATOCRIT. 28.9 % (42.0-52.0); HEMOGLOBIN. 9.1 g/dL (14.0-18.0); LYMPHOCYTES % 10.9 % (20.0-50.0); MEAN CORPUSCULAR HEMOGLOBIN 25.8 pg (28.0-32.0); MEAN CORPUSCULAR VOLUME 81.6 fL (80.0-94.0); MEAN PLATELET VOLUME 11.5 fl (7.4-10.4); MONOCYTES % 4.7 % (2.0-8.0); NEUTROPHILS % 82.3 % (40.0-76.0); PLATELET 225 x1000/uL (130-400); RED BLOOD CELL COUNT 3.55 mill/uL (4.7-6.1)
[2019-10-31 12:47] LABS: CHLORIDE 138 mEq/L (98-107)
[2019-10-31] MEDS: CEFTRIAXONE 1 G PREMIX 50 ML IV SCH (14:21)
[2019-10-31] MEDS: DEXTROSE 5% WATER 1,000 ML IV SCH ×2 (14:22→21:07)
[2019-10-31] MEDS: ENOXAPARIN 40MG/0.4ML SYR SUBCUT SCH (17:56)
[2019-11-01] VITALS: BP 112/64
[2019-11-01 04:00] VITALS: BP 120/73
[2019-11-01] MEDS: DEXTROSE 5% WATER 1,000 ML IV SCH ×3 (06:07→21:43)
[2019-11-01] MEDS: METOCLOPRAMIDE HCL 10MG/2ML VIAL IV SCH ×3 (06:07→17:53)
[2019-11-01] MEDS: BLOOD SUGAR DIAGNOSTIC STRIP TEST SCH ×4 (06:36→21:38)
[2019-11-01 07:02] LABS: CHLORIDE 132 mEq/L (98-107)
[2019-11-01 07:05] LABS: BASOPHILS % 0.3 % (0.0-2.0); EOSINOPHILS % 2.2 % (0.0-5.0); HEMATOCRIT. 29.8 % (42.0-52.0); HEMOGLOBIN. 9.3 g/dL (14.0-18.0); LYMPHOCYTES % 13.8 % (20.0-50.0); MEAN CORPUSCULAR HEMOGLOBIN 25.6 pg (28.0-32.0); MEAN CORPUSCULAR VOLUME 81.9 fL (80.0-94.0); MEAN PLATELET VOLUME 11.5 fl (7.4-10.4); MONOCYTES % 7.7 % (2.0-8.0); PLATELET 213 x1000/uL (130-400); RED BLOOD CELL COUNT 3.64 mill/uL (4.7-6.1)
[2019-11-01 08:09] VITALS: BP 126/71
[2019-11-01] MEDS: AZITHROMYCIN 500 MG in DEXT 5% WATER 250 ML IV SCH (08:47)
[2019-11-01] MEDS: MULTIVITAMINS,THER W-MINERALS TABLET PO SCH (08:47)
[2019-11-01] MEDS: DESMOPRESSIN ACETATE 0.1MG TABLET PO SCH (08:47)
[2019-11-01] MEDS: INSULIN LISPRO 100 UNITS/ML SUBCUT SCH ×4 (08:51→21:47)
[2019-11-01 12:22] VITALS: BP 132/78
[2019-11-01] MEDS: CEFTRIAXONE 1 G PREMIX 50 ML IV SCH (14:26)
[2019-11-01] MEDS: ENOXAPARIN 40MG/0.4ML SYR SUBCUT SCH (16:23)
[2019-11-01 16:40] VITALS: BP 145/76
[2019-11-01 20:00] VITALS: BP 109/64
[2019-11-02] VITALS: BP 121/69
[2019-11-02] MEDS: METOCLOPRAMIDE HCL 10MG/2ML VIAL IV SCH ×4 (00:45→17:14)
[2019-11-02] MEDS: ACETAMINOPHEN 325MG TABLET PO PRN (01:04)
[2019-11-02 04:00] VITALS: BP 114/66
[2019-11-02] MEDS: DEXTROSE 5% WATER 1,000 ML IV SCH ×2 (05:40→17:25)
[2019-11-02 07:13] LABS: CHLORIDE 120 mEq/L (98-107)
[2019-11-02 07:40] LABS: BASOPHILS % 0.1 % (0.0-2.0); EOSINOPHILS % 3.2 % (0.0-5.0); HEMATOCRIT. 25.2 % (42.0-52.0); LYMPHOCYTES % 22.2 % (20.0-50.0); MEAN CORPUSCULAR HEMOGLOBIN 25.2 pg (28.0-32.0); MEAN CORPUSCULAR VOLUME 79.4 fL (80.0-94.0); MEAN PLATELET VOLUME 11.1 fl (7.4-10.4); MONOCYTES % 5.3 % (2.0-8.0); NEUTROPHILS % 69.2 % (40.0-76.0); PLATELET 208 x1000/uL (130-400); RED BLOOD CELL COUNT 3.17 mill/uL (4.7-6.1); RED CELL DISTRIBUTION WIDTH 18.2 % (11.6-14.6)
[2019-11-02] MEDS: BLOOD SUGAR DIAGNOSTIC STRIP TEST SCH ×4 (07:48→20:57)
[2019-11-02] MEDS: INSULIN LISPRO 100 UNITS/ML SUBCUT SCH ×4 (07:50→20:57)
[2019-11-02 08:00] VITALS: BP 109/61
[2019-11-02] MEDS: AZITHROMYCIN 500 MG in DEXT 5% WATER 250 ML IV SCH (09:05)
[2019-11-02] MEDS: DESMOPRESSIN ACETATE 0.1MG TABLET PO SCH (09:05)
[2019-11-02] MEDS: MULTIVITAMINS,THER W-MINERALS TABLET PO SCH (09:05)
[2019-11-02 12:00] VITALS: BP 125/65
[2019-11-02] MEDS: CEFTRIAXONE 1 G PREMIX 50 ML IV SCH (14:26)
[2019-11-02] MEDS: ENOXAPARIN 40MG/0.4ML SYR SUBCUT SCH (17:14)
[2019-11-02] MEDS ORDERED: METOCLOPRAMIDE HCL 10MG/2ML VIAL IV SCH (18:00)
[2019-11-02 20:00] VITALS: BP 114/69
[2019-11-03] VITALS: BP 108/67
[2019-11-03] MEDS: DEXTROSE 5% WATER 1,000 ML IV SCH ×4 (00:26→21:40)
[2019-11-03] MEDS: METOCLOPRAMIDE HCL 10MG/2ML VIAL IV SCH ×3 (00:28→12:54)
[2019-11-03 04:00] VITALS: BP 102/65
[2019-11-03] MEDS: BLOOD SUGAR DIAGNOSTIC STRIP TEST SCH ×4 (07:35→21:27)
[2019-11-03] MEDS: INSULIN LISPRO 100 UNITS/ML SUBCUT SCH ×4 (07:35→21:00)
[2019-11-03 08:04] VITALS: BP 109/64
[2019-11-03] MEDS: AZITHROMYCIN 500 MG in DEXT 5% WATER 250 ML IV SCH (08:47)
[2019-11-03] MEDS: MULTIVITAMINS,THER W-MINERALS TABLET PO SCH (08:47)
[2019-11-03] MEDS: DESMOPRESSIN ACETATE 0.1MG TABLET PO SCH (08:47)
[2019-11-03 12:05] VITALS: BP 124/73
[2019-11-03] MEDS: CEFTRIAXONE 1 G PREMIX 50 ML IV SCH (14:00)
[2019-11-03 15:53] LABS: BASOPHILS % 0.4 % (0.0-2.0); EOSINOPHILS % 2.9 % (0.0-5.0); HEMATOCRIT. 24.7 % (42.0-52.0); HEMOGLOBIN. 7.8 g/dL (14.0-18.0); MEAN CORPUSCULAR HEMOGLOBIN 24.9 pg (28.0-32.0); MEAN CORPUSCULAR VOLUME 78.8 fL (80.0-94.0); MEAN PLATELET VOLUME 10.8 fl (7.4-10.4); MONOCYTES % 4.8 % (2.0-8.0); NEUTROPHILS % 73.9 % (40.0-76.0); PLATELET 252 x1000/uL (130-400); RED BLOOD CELL COUNT 3.14 mill/uL (4.7-6.1)
[2019-11-03 16:04] VITALS: BP 115/66
[2019-11-03] MEDS: ENOXAPARIN 40MG/0.4ML SYR SUBCUT SCH (17:07)
[2019-11-03 17:12] LABS: CHLORIDE 118 mEq/L (98-107)
[2019-11-03 20:00] VITALS: BP 105/62
[2019-11-03] MEDS: ACETAMINOPHEN 325MG TABLET PO PRN (21:40)
[2019-11-04] VITALS: BP 110/68
[2019-11-04 04:00] VITALS: BP 125/68
[2019-11-04 07:06] LABS: BASOPHILS % 0.4 % (0.0-2.0); EOSINOPHILS % 2.9 % (0.0-5.0); HEMATOCRIT. 25.9 % (42.0-52.0); HEMOGLOBIN. 8.2 g/dL (14.0-18.0); LYMPHOCYTES % 18.6 % (20.0-50.0); MEAN CORPUSCULAR VOLUME 79.1 fL (80.0-94.0); MONOCYTES % 4.2 % (2.0-8.0); NEUTROPHILS % 73.9 % (40.0-76.0); PLATELET 281 x1000/uL (130-400); RED BLOOD CELL COUNT 3.27 mill/uL (4.7-6.1); RED CELL DISTRIBUTION WIDTH 17.8 % (11.6-14.6)
[2019-11-04] MEDS: INSULIN LISPRO 100 UNITS/ML SUBCUT SCH (07:11)
[2019-11-04] MEDS: BLOOD SUGAR DIAGNOSTIC STRIP TEST SCH (07:11)
[2019-11-04 07:24] LABS: CHLORIDE 118 mEq/L (98-107)
[2019-11-04 07:45] LABS: PHOSPHORUS 3.1 mg/dL (2.5-4.9)
[2019-11-04 08:00] VITALS: BP 106/58
[2019-11-04] MEDS: MULTIVITAMINS,THER W-MINERALS TABLET PO SCH (10:51)
[2019-11-04] MEDS: DESMOPRESSIN ACETATE 0.1MG TABLET PO SCH (10:51)
[2019-11-04 12:00] VITALS: BP 130/56
[2019-11-04 15:50] VITALS: BP 130/56
[2019-11-04 16:00] VITALS: BP 118/69
== END 2019-11-04 16:40 | DRG 871 ==
LOC: ER 08:16 → EDBEDREQ 08:27 → 3WST 10:41 → EDBEDREQ 10:45 → EDBEDREQTM 10:45 → ENRESERV 19:10 → 6WST 10-31 05:59
PROVIDERS: ADMIT Hospitalist; ATTEND Hospitalist
PROC: 05HY33Z Insertion of Infusion Device into Upper Vein, Percutaneous Approach (ICD-10-PCS; principal; 2019-10-27)
PROC: B54MZZA Ultrasonography of Right Upper Extremity Veins, Guidance (ICD-10-PCS; 2019-10-27)
PROC: 5A09457 Assistance with Respiratory Ventilation, 24-96 Consecutive Hours, Continuous Positive Airway Pressure (ICD-10-PCS; 2019-10-27)
DX: A41.9 Sepsis, unspecified organism (principal); J18.9 Pneumonia, unspecified organism; E43 Unspecified severe protein-calorie malnutrition; J96.01 Acute respiratory failure with hypoxia; N17.9 Acute kidney failure, unspecified; N39.0 Urinary tract infection, site not specified; E87.0 Hyperosmolality and hypernatremia; J44.0 Chronic obstructive pulmonary disease with (acute) lower respiratory infection; G93.40 Encephalopathy, unspecified; E11.22 Type 2 diabetes mellitus with diabetic chronic kidney disease; E87.5 Hyperkalemia; N18.9 Chronic kidney disease, unspecified; I12.9 Hypertensive chronic kidney disease with stage 1 through stage 4 chronic kidney disease, or unspecified chronic kidney disease; E78.00 Pure hypercholesterolemia, unspecified; E83.52 Hypercalcemia; E86.9 Volume depletion, unspecified; Z93.1 Gastrostomy status; D64.9 Anemia, unspecified; E78.5 Hyperlipidemia, unspecified; L89.620 Pressure ulcer of left heel, unstageable; R62.7 Adult failure to thrive; Z87.891 Personal history of nicotine dependence; K21.9 Gastro-esophageal reflux disease without esophagitis; M19.90 Unspecified osteoarthritis, unspecified site
CPT/HCPCS: 36415; 36600; 71045; 76770; 76937; 80048; 80053; 80061; 81003; 82375; 82550; 82805; 82962; 83605; 83735; 84100; 84134; 84145; 84484; 85025; 86038; 86160; 87077; 87186; 92610; 93005; 93970; 94660; 99291; C1725; J0456; J0696; J1650; J1815; J2060; J2543; J2765; J3370; J7030; J7060; L8514

== ENCOUNTER 2019-11-15 08:44 | Inpatient (IN) | payer MEDICARE, MEDICAID ==
[2019-11-15] VITALS (31 sets, daily range): BP systolic 93–126; BP diastolic 52–77
[~2019-11-15] VITALS: Ht 172.7 cm; Wt 71.8 kg
[2019-11-15] MEDS ORDERED: PIPERACILLIN/TAZ 3.375G PREMIX 50 ML IV ONE (09:30)
[2019-11-15] MEDS ORDERED: VANCOMYCIN 1 G PREMIX 200 ML IV ONE (09:30)
[2019-11-15] MEDS ORDERED: SODIUM CHLORIDE 0.9% 1000ML BAG (SEPSIS BOLUS) IV ONE (09:30)
[2019-11-15] MEDS ORDERED: ETOMIDATE 2MG/ML 10ML VIAL IV ONE (09:48)
[2019-11-15] MEDS ORDERED: SUCCINYLCHOLINE CHLORIDE 200MG/10ML IV ONE (09:48)
[2019-11-15 10:13] LABS: BG BASE EXCESS 3.4 mmol/L (-2.0-2.0); BG CARBOXYHEMOGLOBIN 0.3 % (0.5-1.5); BG DEOXYHEMOGLOBIN 0.6 % (0.0-5.0); BG FRACTION INSPIRED OXYGEN 80; BG HCO3 ACT 27.7 mmol/L (22.0-26.0); BG METHEMOGLOBIN 0.2 % (0.0-1.5); BG OXYGEN SATURATION 99.4 % (92.0-98.5); BG OXYHEMOGLOBIN 98.9 % (94.0-97.0); BG PH 7.447 (7.350-7.450); BG PO2 319.4 mmHg (75.0-100.0); BG SAMPLE SITE RIGHT RADIAL; BG TIDAL VOLUME(mL) 500 mL; BG TOTAL HEMOGLOBIN 10.7 g/dL (12.0-18.0); BG VENT MODE VENT - A/C; BG VENT RATE 16 set
[2019-11-15] MEDS ORDERED: PROPOFOL 10MG/ML 100ML 100 ML IV SCH (10:15)
[2019-11-15 10:33] LABS: BASOPHILS % 0.2 % (0.0-2.0); EOSINOPHILS % 0.3 % (0.0-5.0); HEMATOCRIT. 33.8 % (42.0-52.0); HEMOGLOBIN. 10.1 g/dL (14.0-18.0); LYMPHOCYTES % 9.9 % (20.0-50.0); MEAN CORPUSCULAR HEMOGLOBIN 24.6 pg (28.0-32.0); MEAN CORPUSCULAR VOLUME 82.3 fL (80.0-94.0); MEAN PLATELET VOLUME 10.2 fl (7.4-10.4); MONOCYTES % 5.2 % (2.0-8.0); NEUTROPHILS % 84.4 % (40.0-76.0); PLATELET 421 x1000/uL (130-400); RED BLOOD CELL COUNT 4.11 mill/uL (4.7-6.1); RED CELL DISTRIBUTION WIDTH 19.3 % (11.6-14.6)
[2019-11-15 10:41] LABS: CHLORIDE 133 mEq/L (98-107); INR 1.1; PARTIAL THROMBOPLASTIN TIME 26.8 sec (23.4-31.0); PROTHROMBIN TIME 11.4 sec (9.6-11.0)
[2019-11-15] MEDS ORDERED: METHYLPREDNISOLONE SOD SUCC 125 MG/2 ML VIAL IV STA (11:13)
[2019-11-15] MEDS ORDERED: ALBUTEROL (0.083%) 2.5MG/3ML NEB HHN STA (11:13)
[2019-11-15] MEDS ORDERED: IPRATROPIUM BROMIDE (0.02%) 0.5MG/2.5ML NEB HHN STA (11:13)
[2019-11-15 11:46] LABS: COLOR URINE YELLOW (YELLOW); KETONES URINE NEGATIVE (NEGATIVE); LEUKOCYTE ESTERASE URINE 1+ (NEGATIVE); NITRITE URINE POSITIVE (NEGATIVE); OCCULT BLOOD URINE NEGATIVE (NEGATIVE); PROTEIN URINE 1+ (NEGATIVE); SPECIFIC GRAVITY URINE 1.018 (1.005-1.030); UROBILINOGEN URINE 0.2 E.U./dL (0.2-1.0)
[2019-11-15 11:47] LABS: CLARITY URINE SL HAZY (CLEAR)
[2019-11-15] MEDS ORDERED: DEXT 5%/LACTATED RINGERS 1,000 ML IV SCH (12:09)
[2019-11-15] MEDS ORDERED: ONDANSETRON HCL 4MG/2ML INJ IV PRN (12:15)
[2019-11-15] MEDS ORDERED: MAGNESIUM/ALUMINUM HYDROXIDE/SIMETHICONE 30ML UDC PO PRN (12:15)
[2019-11-15] MEDS ORDERED: IPRATROPIUM/ALBUTEROL 0.5-3(2.5)MG/3ML NEB NEB PRN (12:15)
[2019-11-15] MEDS ORDERED: GUAIFENESIN 200MG/10ML SUGAR FREE UDC PO PRN (12:15)
[2019-11-15] MEDS ORDERED: DOCUSATE SODIUM 100MG CAPSULE PO PRN (12:15)
[2019-11-15] MEDS ORDERED: CLONIDINE 0.1MG TABLET PO PRN (12:15)
[2019-11-15] MEDS ORDERED: NITROGLYCERIN 0.4MG TABLET SL SL PRN (12:15)
[2019-11-15] MEDS ORDERED: ACETAMINOPHEN 325MG TABLET PO PRN (12:15)
[2019-11-15] MEDS ORDERED: SODIUM BICARBONATE 8.4% 1 MEQ/ML 50ML SYR IV ONE (12:45)
[2019-11-15] MEDS ORDERED: DEXT 5%/0.2% NACL 1,000 ML IV ONE (13:00)
[2019-11-15] MEDS ORDERED: DEXT 5%/0.2% NACL 1,000 ML IV SCH (13:30)
[2019-11-15] MEDS: INSULIN LISPRO 100 UNITS/ML SUBCUT SCH ×3 (15:31→22:02)
[2019-11-15] MEDS ORDERED: MEROPENEM 1,000 MG in SODIUM CHLORIDE 0.9% 100 ML IV SCH (16:00)
[2019-11-15 16:17] LABS: CREATINE KINASE 111 IU/L (39-308)
[2019-11-15 16:20] LABS: CREATINE KINASE MB FRACTION < 1.0 ng/mL (0.5-3.6)
[2019-11-15] MEDS: BLOOD SUGAR DIAGNOSTIC STRIP TEST SCH ×2 (16:30→22:03)
[2019-11-15] MEDS ORDERED: MORPHINE SULFATE 2 MG/ML CPJ (NOT FOR IM USE) IV PRN (16:52)
[2019-11-15] MEDS ORDERED: DEXTROSE 50% WATER 50ML SYRINGE IV PRN (16:53)
[2019-11-15] MEDS ORDERED: NOREPINEPHRINE 4 MG in DEXT 5% WATER 246 ML IV PRN ×4 (17:00)
[2019-11-15 17:51] LABS: BG BASE EXCESS 3.5 mmol/L (-2.0-2.0); BG CARBOXYHEMOGLOBIN 0.3 % (0.5-1.5); BG DEOXYHEMOGLOBIN 1.9 % (0.0-5.0); BG FRACTION INSPIRED OXYGEN 40; BG HCO3 ACT 28.5 mmol/L (22.0-26.0); BG METHEMOGLOBIN 0.3 % (0.0-1.5); BG OXYGEN SATURATION 98.1 % (92.0-98.5); BG OXYHEMOGLOBIN 97.5 % (94.0-97.0); BG PCO2 45.2 mmHg (35.0-45.0); BG PH 7.417 (7.350-7.450); BG PO2 131.8 mmHg (75.0-100.0); BG SAMPLE SITE RIGHT BRACHIAL; BG TIDAL VOLUME(mL) 500 mL; BG TOTAL HEMOGLOBIN 8.8 g/dL (12.0-18.0); BG VENT MODE VENT - A/C; BG VENT RATE 16 set
[2019-11-15] MEDS: MEROPENEM 1,000 MG in SODIUM CHLORIDE 0.9% 100 ML IV SCH (18:07)
[2019-11-15] MEDS: DEXTROSE 5% WATER 1,000 ML IV SCH (19:41)
[2019-11-15] MEDS: PROPOFOL 10MG/ML 100ML 100 ML IV PRN (19:41)
[2019-11-15] MEDS: METHYLPREDNISOLONE SOD SUCC 40 MG/ML VIAL IV SCH (19:42)
[2019-11-15] MEDS: ENOXAPARIN 40MG/0.4ML SYR SUBCUT SCH (19:43)
[2019-11-15] MEDS ORDERED: VANCOMYCIN 750 MG PREMIX 150 ML IV SCH (20:00)
[2019-11-15] MEDS: IPRATROPIUM/ALBUTEROL 0.5-3(2.5)MG/3ML NEB HHN SCH (21:02)
[2019-11-15] MEDS: ASCORBIC ACID 500 MG TABLET PO SCH (22:03)
[2019-11-15 23:36] LABS: CREATINE KINASE MB FRACTION 1.2 ng/mL (0.5-3.6)
[2019-11-15 23:40] LABS: CREATINE KINASE 190 IU/L (39-308)
[2019-11-16] VITALS (96 sets, daily range): BP systolic 98–148; BP diastolic 57–123
[2019-11-16] MEDS: IPRATROPIUM/ALBUTEROL 0.5-3(2.5)MG/3ML NEB HHN SCH ×7 (00:38→23:50)
[2019-11-16] MEDS: DEXTROSE 5% WATER 1,000 ML IV SCH ×2 (03:50→15:44)
[2019-11-16] MEDS: METHYLPREDNISOLONE SOD SUCC 40 MG/ML VIAL IV SCH ×3 (03:50→20:27)
[2019-11-16 05:35] LABS: HEMATOCRIT. 29.4 % (42.0-52.0); HEMOGLOBIN. 8.9 g/dL (14.0-18.0); MEAN CORPUSCULAR HEMOGLOBIN 25.4 pg (28.0-32.0); MEAN CORPUSCULAR VOLUME 83.7 fL (80.0-94.0); MEAN PLATELET VOLUME 10.2 fl (7.4-10.4); PLATELET 261 x1000/uL (130-400); RED BLOOD CELL COUNT 3.51 mill/uL (4.7-6.1); RED CELL DISTRIBUTION WIDTH 19.5 % (11.6-14.6)
[2019-11-16] MEDS: MEROPENEM 1,000 MG in SODIUM CHLORIDE 0.9% 100 ML IV SCH ×2 (05:44→18:01)
[2019-11-16] MEDS: INSULIN LISPRO 100 UNITS/ML SUBCUT SCH ×3 (05:44→18:04)
[2019-11-16] MEDS: BLOOD SUGAR DIAGNOSTIC STRIP TEST SCH ×3 (05:44→17:10)
[2019-11-16] MEDS: PANTOPRAZOLE SODIUM 40 MG/VIAL IV SCH (07:54)
[2019-11-16] MEDS: ZINC SULFATE 220 MG ( 50 ) CAPSULE PO SCH (07:54)
[2019-11-16] MEDS: PROPOFOL 10MG/ML 100ML 100 ML IV PRN (07:58)
[2019-11-16] MEDS: ASCORBIC ACID 500 MG TABLET PO SCH ×2 (07:58→20:28)
[2019-11-16] MEDS: ASPIRIN 325MG TABLET PO SCH (08:12)
[2019-11-16 08:22] LABS: BG BASE EXCESS 2.8 mmol/L (-2.0-2.0); BG CARBOXYHEMOGLOBIN 0.3 % (0.5-1.5); BG FRACTION INSPIRED OXYGEN 40; BG HCO3 ACT 27.7 mmol/L (22.0-26.0); BG METHEMOGLOBIN 0.1 % (0.0-1.5); BG OXYHEMOGLOBIN 98.6 % (94.0-97.0); BG PCO2 44.3 mmHg (35.0-45.0); BG PH 7.414 (7.350-7.450); BG PO2 157.2 mmHg (75.0-100.0); BG SAMPLE SITE RIGHT BRACHIAL; BG TIDAL VOLUME(mL) 500 mL; BG TOTAL HEMOGLOBIN 7.8 g/dL (12.0-18.0); BG VENT MODE VENT - A/C; BG VENT RATE 16 set
[2019-11-16] MEDS ORDERED: ASPIRIN 325MG EC TABLET PO SCH (09:00)
[2019-11-16 09:59] LABS: PLATELET ESTIMATE NORMAL
[2019-11-16] MEDS: INSULIN GLARGINE UD 100 UNITS/ML SYR SUBCUT SCH (10:17)
[2019-11-16 11:48] LABS: TOTAL IRON BINDING CAPACITY 172 ug/dL (250-450)
[2019-11-16] MEDS ORDERED: INSULIN LISPRO 100 UNITS/ML SUBCUT SCH (12:00)
[2019-11-16] MEDS: VANCOMYCIN 1 G PREMIX 200 ML IV SCH (15:43)
[2019-11-16] MEDS: ENOXAPARIN 40MG/0.4ML SYR SUBCUT SCH (20:28)
[2019-11-17] VITALS (90 sets, daily range): BP systolic 121–160; BP diastolic 54–106
[2019-11-17] MEDS ORDERED: PROPOFOL 10MG/ML 100ML 100 ML IV PRN ×3 (00:15→13:45)
[2019-11-17] MEDS: INSULIN LISPRO 100 UNITS/ML SUBCUT SCH ×4 (00:16→18:00)
[2019-11-17] MEDS: BLOOD SUGAR DIAGNOSTIC STRIP TEST SCH ×4 (00:16→18:09)
[2019-11-17] MEDS: IPRATROPIUM/ALBUTEROL 0.5-3(2.5)MG/3ML NEB HHN SCH ×5 (03:59→20:52)
[2019-11-17] MEDS: METHYLPREDNISOLONE SOD SUCC 40 MG/ML VIAL IV SCH ×3 (04:32→17:02)
[2019-11-17 05:36] LABS: HEMATOCRIT. 23.9 % (42.0-52.0); HEMOGLOBIN. 7.4 g/dL (14.0-18.0); MEAN CORPUSCULAR HEMOGLOBIN 24.9 pg (28.0-32.0); MEAN CORPUSCULAR VOLUME 80.8 fL (80.0-94.0); MEAN PLATELET VOLUME 10.3 fl (7.4-10.4); PLATELET 226 x1000/uL (130-400); RED BLOOD CELL COUNT 2.96 mill/uL (4.7-6.1)
[2019-11-17 06:15] LABS: PHOSPHORUS 3.2 mg/dL (2.5-4.9)
[2019-11-17] MEDS: MEROPENEM 1,000 MG in SODIUM CHLORIDE 0.9% 100 ML IV SCH ×2 (06:17→17:03)
[2019-11-17 07:27] LABS: NUCLEATED RED BLOOD CELLS 2 /100 WBC; PLATELET ESTIMATE NORMAL
[2019-11-17] MEDS: DEXTROSE 5% WATER 1,000 ML IV SCH (09:24)
[2019-11-17] MEDS: PANTOPRAZOLE SODIUM 40 MG/VIAL IV SCH (09:51)
[2019-11-17] MEDS: VANCOMYCIN 1 G PREMIX 200 ML IV SCH (09:51)
[2019-11-17] MEDS: ASCORBIC ACID 500 MG TABLET PO SCH ×2 (09:51→22:52)
[2019-11-17] MEDS: ASPIRIN 325MG TABLET PO SCH (09:51)
[2019-11-17] MEDS: ZINC SULFATE 220 MG ( 50 ) CAPSULE PO SCH (09:51)
[2019-11-17] MEDS: INSULIN GLARGINE UD 100 UNITS/ML SYR SUBCUT SCH (10:33)
[2019-11-17] MEDS: DESMOPRESSIN ACETATE 0.1MG TABLET PO SCH (12:50)
[2019-11-17] MEDS: ENOXAPARIN 40MG/0.4ML SYR SUBCUT SCH (20:22)
[2019-11-18] VITALS (53 sets, daily range): BP systolic 109–161; BP diastolic 51–104
[2019-11-18] MEDS: BLOOD SUGAR DIAGNOSTIC STRIP TEST SCH ×5 (00:03→23:45)
[2019-11-18] MEDS: INSULIN LISPRO 100 UNITS/ML SUBCUT SCH ×4 (00:08→17:41)
[2019-11-18] MEDS: IPRATROPIUM/ALBUTEROL 0.5-3(2.5)MG/3ML NEB HHN SCH ×7 (00:25→23:41)
[2019-11-18] MEDS: VANCOMYCIN 1 G PREMIX 200 ML IV SCH (02:46)
[2019-11-18] MEDS: DEXTROSE 5% WATER 1,000 ML IV SCH ×2 (03:36→17:42)
[2019-11-18 04:59] LABS: BG BASE EXCESS -0.1 mmol/L (-2.0-2.0); BG CARBOXYHEMOGLOBIN 0.3 % (0.5-1.5); BG DEOXYHEMOGLOBIN 2.4 % (0.0-5.0); BG FRACTION INSPIRED OXYGEN 28; BG HCO3 ACT 23.9 mmol/L (22.0-26.0); BG METHEMOGLOBIN 0.2 % (0.0-1.5); BG OXYGEN SATURATION 97.6 % (92.0-98.5); BG OXYHEMOGLOBIN 97.1 % (94.0-97.0); BG PCO2 35.7 mmHg (35.0-45.0); BG PH 7.443 (7.350-7.450); BG PO2 106.4 mmHg (75.0-100.0); BG SAMPLE SITE RIGHT RADIAL; BG TOTAL HEMOGLOBIN 8.8 g/dL (12.0-18.0); BG VENT MODE NASAL CANNULA
[2019-11-18] MEDS: MEROPENEM 1,000 MG in SODIUM CHLORIDE 0.9% 100 ML IV SCH (05:31)
[2019-11-18 05:39] LABS: BASOPHILS % 0.1 % (0.0-2.0); HEMATOCRIT. 25.8 % (42.0-52.0); LYMPHOCYTES % 8.6 % (20.0-50.0); MEAN CORPUSCULAR HEMOGLOBIN 25.2 pg (28.0-32.0); MEAN CORPUSCULAR VOLUME 80.9 fL (80.0-94.0); MEAN PLATELET VOLUME 10.1 fl (7.4-10.4); MONOCYTES % 5.9 % (2.0-8.0); NEUTROPHILS % 85.4 % (40.0-76.0); PLATELET 220 x1000/uL (130-400); RED BLOOD CELL COUNT 3.19 mill/uL (4.7-6.1); RED CELL DISTRIBUTION WIDTH 18.9 % (11.6-14.6)
[2019-11-18 05:52] LABS: CHLORIDE 122 mEq/L (98-107)
[2019-11-18] MEDS: METHYLPREDNISOLONE SOD SUCC 40 MG/ML VIAL IV SCH ×2 (08:55→17:58)
[2019-11-18] MEDS: PANTOPRAZOLE SODIUM 40 MG/VIAL IV SCH (08:55)
[2019-11-18] MEDS: ZINC SULFATE 220 MG ( 50 ) CAPSULE PO SCH (08:55)
[2019-11-18] MEDS: DESMOPRESSIN ACETATE 0.1MG TABLET PO SCH (08:55)
[2019-11-18] MEDS: ASPIRIN 325MG TABLET PO SCH (08:55)
[2019-11-18] MEDS: ASCORBIC ACID 500 MG TABLET PO SCH ×2 (08:55→20:10)
[2019-11-18] MEDS: INSULIN GLARGINE UD 100 UNITS/ML SYR SUBCUT SCH (11:12)
[2019-11-18] MEDS: CEFTRIAXONE 1 G PREMIX 50 ML IV SCH (15:08)
[2019-11-18] MEDS: ENOXAPARIN 40MG/0.4ML SYR SUBCUT SCH (20:10)
[2019-11-19] VITALS (13 sets, daily range): BP systolic 109–149; BP diastolic 54–81
[2019-11-19] MEDS: INSULIN LISPRO 100 UNITS/ML SUBCUT SCH ×4 (01:56→18:53)
[2019-11-19] MEDS: DEXTROSE 5% WATER 1,000 ML IV SCH ×2 (02:44→20:58)
[2019-11-19] MEDS: IPRATROPIUM/ALBUTEROL 0.5-3(2.5)MG/3ML NEB HHN SCH ×5 (03:14→20:21)
[2019-11-19] MEDS: BLOOD SUGAR DIAGNOSTIC STRIP TEST SCH ×3 (05:58→17:35)
[2019-11-19 06:55] LABS: BASOPHILS % 0.1 % (0.0-2.0); HEMOGLOBIN. 7.6 g/dL (14.0-18.0); LYMPHOCYTES % 12.1 % (20.0-50.0); MEAN CORPUSCULAR HEMOGLOBIN 25.5 pg (28.0-32.0); MEAN CORPUSCULAR VOLUME 80.7 fL (80.0-94.0); MEAN PLATELET VOLUME 9.9 fl (7.4-10.4); MONOCYTES % 6.6 % (2.0-8.0); NEUTROPHILS % 81.2 % (40.0-76.0); PLATELET 216 x1000/uL (130-400); RED BLOOD CELL COUNT 2.97 mill/uL (4.7-6.1); RED CELL DISTRIBUTION WIDTH 18.8 % (11.6-14.6)
[2019-11-19 07:09] LABS: CHLORIDE 124 mEq/L (98-107)
[2019-11-19 07:38] LABS: PHOSPHORUS 2.5 mg/dL (2.5-4.9)
[2019-11-19] MEDS: DESMOPRESSIN ACETATE 0.1MG TABLET PO SCH ×2 (09:43→17:35)
[2019-11-19] MEDS: FAMOTIDINE 20MG TABLET PO SCH ×2 (09:44→20:51)
[2019-11-19] MEDS: ZINC SULFATE 220 MG ( 50 ) CAPSULE PO SCH (09:45)
[2019-11-19] MEDS: ASCORBIC ACID 500 MG TABLET PO SCH ×2 (09:45→20:51)
[2019-11-19] MEDS: METHYLPREDNISOLONE SOD SUCC 40 MG/ML VIAL IV SCH (09:45)
[2019-11-19] MEDS: INSULIN GLARGINE UD 100 UNITS/ML SYR SUBCUT SCH (09:47)
[2019-11-19] MEDS: ASPIRIN 325MG TABLET PO SCH (11:03)
[2019-11-19] MEDS: VANCOMYCIN 1 G PREMIX 200 ML IV SCH (11:04)
[2019-11-19] MEDS: CEFTRIAXONE 1 G PREMIX 50 ML IV SCH (15:05)
[2019-11-19] MEDS: ENOXAPARIN 40MG/0.4ML SYR SUBCUT SCH (20:51)
[2019-11-20] VITALS (13 sets, daily range): BP systolic 127–150; BP diastolic 64–103
[2019-11-20] MEDS: BLOOD SUGAR DIAGNOSTIC STRIP TEST SCH ×5 (00:03→23:19)
[2019-11-20] MEDS: IPRATROPIUM/ALBUTEROL 0.5-3(2.5)MG/3ML NEB HHN SCH ×6 (01:05→21:38)
[2019-11-20] MEDS: INSULIN LISPRO 100 UNITS/ML SUBCUT SCH ×5 (06:00→23:20)
[2019-11-20 06:49] LABS: CHLORIDE 122 mEq/L (98-107)
[2019-11-20] MEDS ORDERED: PREDNISONE 20MG TABLET PO SCH (09:00)
[2019-11-20] MEDS ORDERED: LACTOBACILLUS GG CAPSULE PO SCH (09:00)
[2019-11-20] MEDS: VANCOMYCIN 1 G PREMIX 200 ML IV SCH (09:20)
[2019-11-20] MEDS: FAMOTIDINE 20MG TABLET PO SCH ×2 (09:31→21:27)
[2019-11-20] MEDS: ZINC SULFATE 220 MG ( 50 ) CAPSULE PO SCH (09:31)
[2019-11-20] MEDS: ASPIRIN 325MG TABLET PO SCH (09:31)
[2019-11-20] MEDS: ASCORBIC ACID 500 MG TABLET PO SCH ×2 (09:32→21:24)
[2019-11-20] MEDS: DESMOPRESSIN ACETATE 0.1MG TABLET PO SCH ×2 (09:32→16:45)
[2019-11-20 10:40] LABS: BASOPHILS % 0.2 % (0.0-2.0); EOSINOPHILS % 1.5 % (0.0-5.0); HEMATOCRIT. 26.7 % (42.0-52.0); HEMOGLOBIN. 8.1 g/dL (14.0-18.0); LYMPHOCYTES % 15.7 % (20.0-50.0); MEAN CORPUSCULAR HEMOGLOBIN 25.2 pg (28.0-32.0); MEAN CORPUSCULAR VOLUME 82.8 fL (80.0-94.0); MEAN PLATELET VOLUME 10.2 fl (7.4-10.4); MONOCYTES % 5.2 % (2.0-8.0); NEUTROPHILS % 77.4 % (40.0-76.0); PLATELET 211 x1000/uL (130-400); RED BLOOD CELL COUNT 3.22 mill/uL (4.7-6.1)
[2019-11-20] MEDS: INSULIN GLARGINE UD 100 UNITS/ML SYR SUBCUT SCH (11:34)
[2019-11-20] MEDS: CEFTRIAXONE 1 G PREMIX 50 ML IV SCH (16:43)
[2019-11-20] MEDS: ENOXAPARIN 40MG/0.4ML SYR SUBCUT SCH (21:24)
[2019-11-20] MEDS: DEXTROSE 5% WATER 1,000 ML IV SCH (21:26)
== END 2019-11-20 23:54 | DRG 871 ==
LOC: ER 08:44 → SUPCPDRO 09:19 → MICUSO 11:15 → EDBEDREQTM 11:19 → EDBEDREQ 11:19 → EDBEDREQTM 11:20 → EDBEDREQ 11:20 → ENRESERV 14:27 → 3WST 11-18 11:57
PROVIDERS: ADMIT Internal Medicine; ATTEND Internal Medicine
PROC: 5A1945Z Respiratory Ventilation, 24-96 Consecutive Hours (ICD-10-PCS; principal; 2019-11-15)
PROC: 0BH17EZ Insertion of Endotracheal Airway into Trachea, Via Natural or Artificial Opening (ICD-10-PCS; 2019-11-15)
DX: A41.9 Sepsis, unspecified organism (principal); E43 Unspecified severe protein-calorie malnutrition; G92 Toxic encephalopathy; J96.00 Acute respiratory failure, unspecified whether with hypoxia or hypercapnia; N17.0 Acute kidney failure with tubular necrosis; N39.0 Urinary tract infection, site not specified; J44.1 Chronic obstructive pulmonary disease with (acute) exacerbation; E87.0 Hyperosmolality and hypernatremia; E87.1 Hypo-osmolality and hyponatremia; E87.2 Acidosis; N18.9 Chronic kidney disease, unspecified; E83.52 Hypercalcemia; E11.22 Type 2 diabetes mellitus with diabetic chronic kidney disease; D63.8 Anemia in other chronic diseases classified elsewhere; I12.9 Hypertensive chronic kidney disease with stage 1 through stage 4 chronic kidney disease, or unspecified chronic kidney disease; E11.65 Type 2 diabetes mellitus with hyperglycemia; E78.00 Pure hypercholesterolemia, unspecified; E78.5 Hyperlipidemia, unspecified; K21.9 Gastro-esophageal reflux disease without esophagitis; E86.0 Dehydration; E87.5 Hyperkalemia; R62.7 Adult failure to thrive; Z78.1 Physical restraint status; Z79.4 Long term (current) use of insulin; Z93.1 Gastrostomy status; Z68.24 Body mass index [BMI] 24.0-24.9, adult
CPT/HCPCS: 36415; 36600; 71045; 80048; 80053; 80202; 81003; 82270; 82375; 82550; 82553; 82728; 82805; 82962; 83036; 83540; 83550; 83605; 83735; 83880; 84100; 84134; 84145; 84478; 84484; 85025; 87077; 87186; 87804; 93005; 93970; 94002; 94003; 94640; 94644; 96365; 99291; C9113; J0330; J0696; J1650; J1815; J2185; J2270; J2543; J2704; J2920; J2930; J3370; J3490; J7030; J7050; J7070; J7512

== ENCOUNTER 2020-01-16 10:12 | Inpatient (IN) | payer MEDICARE, MEDICAID ==
[~2020-01-16] VITALS: Ht 177.8 cm; Wt 68.2 kg
[2020-01-16] VITALS (8 sets, daily range): BP systolic 68–114; BP diastolic 38–82
[2020-01-16] MEDS ORDERED: DILTIAZEM HCL 5MG/ML 5ML VIAL IV ONE ×2 (10:45)
[2020-01-16] MEDS ORDERED: DILTIAZEM HCL 125 MG in DEXT 5% WATER 100 ML IV ONE (11:15)
[2020-01-16] MEDS ORDERED: DILTIAZEM HCL 125 MG in DEXT 5% WATER 100 ML IV SCH (11:15)
[2020-01-16 11:20] LABS: BG BASE EXCESS -9.5 mmol/L (-2.0-2.0); BG CARBOXYHEMOGLOBIN 0.3 % (0.5-1.5); BG DEOXYHEMOGLOBIN 18.5 % (0.0-5.0); BG FRACTION INSPIRED OXYGEN 99.9; BG HCO3 ACT 13.6 mmol/L (22.0-26.0); BG METHEMOGLOBIN 0.3 % (0.0-1.5); BG OXYGEN SATURATION 81.4 % (92.0-98.5); BG OXYHEMOGLOBIN 80.9 % (94.0-97.0); BG PCO2 22.7 mmHg (35.0-45.0); BG PH 7.394 (7.350-7.450); BG PO2 48.9 mmHg (75.0-100.0); BG SAMPLE SITE RIGHT BRACHIAL; BG TOTAL HEMOGLOBIN 11.8 g/dL (12.0-18.0); BG VENT MODE VAPOTHERM
[2020-01-16 11:25] LABS: BASOPHILS % 0.1 % (0.0-2.0); HEMATOCRIT. 35.3 % (42.0-52.0); HEMOGLOBIN. 10.8 g/dL (14.0-18.0); LYMPHOCYTES % 8.5 % (20.0-50.0); MEAN CORPUSCULAR HEMOGLOBIN 26.6 pg (28.0-32.0); MEAN CORPUSCULAR VOLUME 87.4 fL (80.0-94.0); MEAN PLATELET VOLUME 10.3 fl (7.4-10.4); MONOCYTES % 4.1 % (2.0-8.0); NEUTROPHILS % 87.3 % (40.0-76.0); PLATELET 570 x1000/uL (130-400); RED BLOOD CELL COUNT 4.04 mill/uL (4.7-6.1); RED CELL DISTRIBUTION WIDTH 20.6 % (11.6-14.6)
[2020-01-16 11:33] LABS: CHLORIDE 117 mEq/L (98-107)
[2020-01-16 11:44] LABS: D-DIMER 4.88 mg/L FEU (<0.50); INR 1.2
[2020-01-16] MEDS ORDERED: ROCURONIUM BROMIDE 10MG/ML VIAL 5ML IV ONE (11:45)
[2020-01-16] MEDS ORDERED: PROPOFOL 10MG/ML 100ML 100 ML IV ONE (11:45)
[2020-01-16] MEDS ORDERED: LIDOCAINE HCL 1% 20ML VIAL (Pyxis) INJ ONE (12:37)
[2020-01-16 14:16] LABS: CLARITY URINE CLOUDY (CLEAR); COLOR URINE YELLOW (YELLOW); KETONES URINE NEGATIVE (NEGATIVE); LEUKOCYTE ESTERASE URINE 3+ (NEGATIVE); NITRITE URINE NEGATIVE (NEGATIVE); OCCULT BLOOD URINE 2+ (NEGATIVE); PH URINE >=9.0 (4.5-8.0); PROTEIN URINE 3+ (NEGATIVE); SPECIFIC GRAVITY URINE 1.013 (1.005-1.030); UROBILINOGEN URINE 0.2 E.U./dL (0.2-1.0)
[2020-01-16] MEDS ORDERED: IPRATROPIUM/ALBUTEROL 0.5-3(2.5)MG/3ML NEB NEB PRN (15:00)
[2020-01-16] MEDS: DEXT 5%/0.45% NACL 1000ML 1,000 ML IV SCH (15:00)
[2020-01-16] MEDS ORDERED: GUAIFENESIN 200MG/10ML SUGAR FREE UDC PO PRN (15:00)
[2020-01-16] MEDS ORDERED: ONDANSETRON HCL 4MG/2ML INJ IV PRN (15:00)
[2020-01-16] MEDS ORDERED: CLONIDINE 0.1MG TABLET PO PRN (15:00)
[2020-01-16] MEDS ORDERED: IPRATROPIUM/ALBUTEROL 0.5-3(2.5)MG/3ML NEB HHN SCH (15:00)
[2020-01-16] MEDS ORDERED: NITROGLYCERIN 0.4MG TABLET SL SL PRN (15:00)
[2020-01-16] MEDS ORDERED: MAGNESIUM/ALUMINUM HYDROXIDE/SIMETHICONE 30ML UDC PO PRN (15:00)
[2020-01-16] MEDS ORDERED: DOCUSATE SODIUM 100MG CAPSULE PO PRN (15:00)
[2020-01-16] MEDS ORDERED: ENOXAPARIN 40MG/0.4ML SYR SUBCUT SCH (15:00)
[2020-01-16] MEDS ORDERED: ACETAMINOPHEN 325MG TABLET PO PRN (15:00)
[2020-01-16] MEDS ORDERED: LORAZEPAM 2MG/ML CPJ IV PRN (15:00)
[2020-01-16] MEDS ORDERED: SODIUM CHLORIDE 0.9% 1000ML BAG (SEPSIS BOLUS) IV SCH (15:00)
[2020-01-16] MEDS ORDERED: SODIUM BICARBONATE 8.4% 1 MEQ/ML 50ML SYR IV SCH (15:00)
[2020-01-16] MEDS ORDERED: NOREPINEPHRINE 4MG/250ML PMX 250 ML IV PRN (15:15)
[2020-01-16] MEDS ORDERED: PHENYLEPHRINE 40 MG in DEXT 5% WATER 246 ML IV PRN ×2 (15:30→16:45)
[2020-01-16] MEDS ORDERED: FENTANYL CITRATE/PF 1,000 MCG in SODIUM CHLORIDE 0.9% 80 ML IV PRN (15:30)
[2020-01-16] MEDS ORDERED: PIPERACILLIN/TAZOBACTAM 2.25 G in DEXTROSE 5% WATER 50 ML IV SCH (15:30)
[2020-01-16] MEDS ORDERED: PROPOFOL 10MG/ML 100ML 100 ML IV PRN (15:30)
[2020-01-16] MEDS: ENOXAPARIN 30MG/0.3ML SYR SUBCUT SCH (15:41)
[2020-01-16] MEDS ORDERED: VANCOMYCIN 1 G PREMIX 200 ML IV SCH (16:00)
[2020-01-16 16:03] LABS: BG BASE EXCESS -10.6 mmol/L (-2.0-2.0); BG CARBOXYHEMOGLOBIN 0.2 % (0.5-1.5); BG DEOXYHEMOGLOBIN 1.2 % (0.0-5.0); BG FRACTION INSPIRED OXYGEN 100; BG HCO3 ACT 18.3 mmol/L (22.0-26.0); BG METHEMOGLOBIN 0.3 % (0.0-1.5); BG OXYGEN SATURATION 98.8 % (92.0-98.5); BG OXYHEMOGLOBIN 98.3 % (94.0-97.0); BG PCO2 56.4 mmHg (35.0-45.0); BG PO2 226.9 mmHg (75.0-100.0); BG SAMPLE SITE RIGHT RADIAL; BG TIDAL VOLUME(mL) 500 mL; BG TOTAL HEMOGLOBIN 9.5 g/dL (12.0-18.0); BG VENT MODE VENT - A/C; BG VENT RATE 14 set
[2020-01-16] MEDS: BLOOD SUGAR DIAGNOSTIC STRIP TEST SCH ×2 (17:00→21:00)
[2020-01-16] MEDS: METHYLPREDNISOLONE SOD SUCC 40 MG/ML VIAL IV SCH (18:44)
[2020-01-16 18:57] LABS: BG FRACTION INSPIRED OXYGEN 100; BG SAMPLE SITE RIGHT RADIAL; BG TIDAL VOLUME(mL) 500 mL; BG VENT MODE VENT - A/C; BG VENT RATE 20 set
[2020-01-16 18:58] LABS: BG BASE EXCESS -9.8 mmol/L (-2.0-2.0); BG CARBOXYHEMOGLOBIN 0.2 % (0.5-1.5); BG DEOXYHEMOGLOBIN 3.4 % (0.0-5.0); BG HCO3 ACT 18.8 mmol/L (22.0-26.0); BG METHEMOGLOBIN 0.2 % (0.0-1.5); BG OXYGEN SATURATION 96.6 % (92.0-98.5); BG OXYHEMOGLOBIN 96.2 % (94.0-97.0); BG PCO2 54.3 mmHg (35.0-45.0); BG PH 7.158 (7.350-7.450); BG PO2 119.4 mmHg (75.0-100.0); BG TOTAL HEMOGLOBIN 10.6 g/dL (12.0-18.0)
[2020-01-16] MEDS: INSULIN LISPRO 100 UNITS/ML SUBCUT SCH ×2 (19:44→21:00)
[2020-01-16] MEDS ORDERED: NOREPINEPHRINE 4 MG in DEXTROSE 5% WATER 250 ML IV PRN (21:45)
[2020-01-16] MEDS: ASCORBIC ACID 500 MG TABLET PO SCH (23:07)
[2020-01-16] MEDS: FAMOTIDINE 20MG TABLET PO SCH (23:07)
[2020-01-16] MEDS: PIPERACILLIN/TAZOBACTAM 2.25 G in DEXTROSE 5% WATER 50 ML IV SCH (23:10)
[2020-01-16] MEDS: DEMECLOCYCLINE HCL 300MG TABLET PO SCH (23:10)
[2020-01-17] VITALS (77 sets, daily range): BP systolic 82–116; BP diastolic 50–87
[2020-01-17] MEDS ORDERED: PIPERACILLIN/TAZ 3.375G PREMIX 50 ML IV SCH
[2020-01-17] MEDS: DEXT 5%/0.45% NACL 1000ML 1,000 ML IV SCH (00:21)
[2020-01-17] MEDS: PHENYLEPHRINE 80 MG in DEXT 5% WATER 492 ML IV PRN ×2 (01:21→16:44)
[2020-01-17] MEDS: METHYLPREDNISOLONE SOD SUCC 40 MG/ML VIAL IV SCH ×3 (01:27→16:50)
[2020-01-17] MEDS: BLOOD SUGAR DIAGNOSTIC STRIP TEST SCH ×4 (05:35→20:01)
[2020-01-17] MEDS: PIPERACILLIN/TAZOBACTAM 2.25 G in DEXTROSE 5% WATER 50 ML IV SCH ×3 (05:39→17:33)
[2020-01-17] MEDS ORDERED: NOREPINEPHRINE 4MG/250ML PMX 250 ML IV ONE (06:00)
[2020-01-17] MEDS: INSULIN LISPRO 100 UNITS/ML SUBCUT SCH ×4 (06:20→20:16)
[2020-01-17] MEDS: ACETAMINOPHEN 325MG TABLET PO PRN (07:57)
[2020-01-17 08:15] LABS: BG CARBOXYHEMOGLOBIN 0.3 % (0.5-1.5); BG DEOXYHEMOGLOBIN 0.4 % (0.0-5.0); BG HCO3 ACT 15.5 mmol/L (22.0-26.0); BG METHEMOGLOBIN 0.1 % (0.0-1.5); BG OXYGEN SATURATION 99.6 % (92.0-98.5); BG OXYHEMOGLOBIN 99.2 % (94.0-97.0); BG PO2 318.1 mmHg (75.0-100.0); BG SAMPLE SITE RIGHT RADIAL; BG TIDAL VOLUME(mL) 500 mL; BG TOTAL HEMOGLOBIN 9.9 g/dL (12.0-18.0); BG VENT MODE VENT - A/C; BG VENT RATE 24 set
[2020-01-17] MEDS ORDERED: SODIUM BICARBONATE 8.4% 1 MEQ/ML 50ML SYR IV STA (08:19)
[2020-01-17] MEDS: ASCORBIC ACID 500 MG TABLET PO SCH ×2 (08:41→20:01)
[2020-01-17] MEDS: ASPIRIN 325MG EC TABLET PO SCH (08:41)
[2020-01-17] MEDS: ZINC SULFATE 220 MG ( 50 ) CAPSULE PO SCH (08:41)
[2020-01-17] MEDS: DEMECLOCYCLINE HCL 300MG TABLET PO SCH ×2 (08:41→20:01)
[2020-01-17] MEDS: ENOXAPARIN 30MG/0.3ML SYR SUBCUT SCH (08:41)
[2020-01-17] MEDS: SODIUM BICARBONATE 100 MEQ in DEXTROSE 5% WATER 1,000 ML IV SCH (10:27)
[2020-01-17] MEDS ORDERED: VANCOMYCIN 1 G PREMIX 200 ML IV SCH (12:00)
[2020-01-17 12:35] LABS: HEMATOCRIT. 27.6 % (42.0-52.0); HEMOGLOBIN. 8.5 g/dL (14.0-18.0); MEAN CORPUSCULAR HEMOGLOBIN 26.6 pg (28.0-32.0); MEAN CORPUSCULAR VOLUME 86.7 fL (80.0-94.0); PLATELET 291 x1000/uL (130-400); RED BLOOD CELL COUNT 3.18 mill/uL (4.7-6.1); RED CELL DISTRIBUTION WIDTH 20.1 % (11.6-14.6)
[2020-01-17 13:03] LABS: NUCLEATED RED BLOOD CELLS 1 /100 WBC
[2020-01-17 13:04] LABS: PLATELET ESTIMATE NORMAL
[2020-01-17] MEDS: FENTANYL CITRATE/PF 1,000 MCG in SODIUM CHLORIDE 0.9% 80 ML IV PRN (13:36)
[2020-01-17] MEDS: FAMOTIDINE 20MG TABLET PO SCH (20:01)
[2020-01-18] VITALS (67 sets, daily range): BP systolic 93–156; BP diastolic 60–92
[2020-01-18] MEDS: PIPERACILLIN/TAZOBACTAM 2.25 G in DEXTROSE 5% WATER 50 ML IV SCH ×2 (00:22→06:48)
[2020-01-18] MEDS: SODIUM BICARBONATE 100 MEQ in DEXTROSE 5% WATER 1,000 ML IV SCH (02:04)
[2020-01-18] MEDS: METHYLPREDNISOLONE SOD SUCC 40 MG/ML VIAL IV SCH ×3 (02:04→17:13)
[2020-01-18 05:42] LABS: HEMATOCRIT. 26.5 % (42.0-52.0); HEMOGLOBIN. 8.4 g/dL (14.0-18.0); MEAN CORPUSCULAR VOLUME 85.4 fL (80.0-94.0); MEAN PLATELET VOLUME 10.1 fl (7.4-10.4); PLATELET 256 x1000/uL (130-400); RED BLOOD CELL COUNT 3.11 mill/uL (4.7-6.1); RED CELL DISTRIBUTION WIDTH 20.5 % (11.6-14.6)
[2020-01-18] MEDS: BLOOD SUGAR DIAGNOSTIC STRIP TEST SCH ×4 (06:30→23:27)
[2020-01-18] MEDS ORDERED: POTASSIUM CHLORIDE 20MEQ/PACKET PO ONE (06:30)
[2020-01-18] MEDS: INSULIN LISPRO 100 UNITS/ML SUBCUT SCH ×4 (06:45→23:46)
[2020-01-18] MEDS: DEXTROSE 5% WATER 1,000 ML IV SCH (06:50)
[2020-01-18] MEDS ORDERED: POTASSIUM CHLORIDE 20MEQ/PACKET PO SCH (07:00)
[2020-01-18 07:37] LABS: BG BASE EXCESS 1.8 mmol/L (-2.0-2.0); BG CARBOXYHEMOGLOBIN 0.3 % (0.5-1.5); BG DEOXYHEMOGLOBIN 1.5 % (0.0-5.0); BG HCO3 ACT 25.8 mmol/L (22.0-26.0); BG METHEMOGLOBIN 0.5 % (0.0-1.5); BG OXYGEN SATURATION 98.5 % (92.0-98.5); BG OXYHEMOGLOBIN 97.7 % (94.0-97.0); BG PCO2 37.4 mmHg (35.0-45.0); BG PH 7.456 (7.350-7.450); BG PO2 142.9 mmHg (75.0-100.0); BG SAMPLE SITE RIGHT RADIAL; BG TIDAL VOLUME(mL) 500 mL; BG TOTAL HEMOGLOBIN 8.3 g/dL (12.0-18.0); BG VENT MODE VENT - A/C; BG VENT RATE 24 set
[2020-01-18] MEDS: ENOXAPARIN 40MG/0.4ML SYR SUBCUT SCH (09:11)
[2020-01-18] MEDS: ASPIRIN 325MG EC TABLET PO SCH (09:11)
[2020-01-18] MEDS: ZINC SULFATE 220 MG ( 50 ) CAPSULE PO SCH (09:11)
[2020-01-18] MEDS: DEMECLOCYCLINE HCL 300MG TABLET PO SCH ×2 (09:11→20:33)
[2020-01-18] MEDS: ASCORBIC ACID 500 MG TABLET PO SCH ×2 (09:12→20:32)
[2020-01-18] MEDS ORDERED: VANCOMYCIN 1 G PREMIX 200 ML IV SCH (10:00)
[2020-01-18 10:30] LABS: PLATELET ESTIMATE NORMAL
[2020-01-18] MEDS: PROPOFOL 10MG/ML 100ML 100 ML IV PRN ×2 (11:39→20:16)
[2020-01-18] MEDS: PIPERACILLIN/TAZOBACTAM 3.375 G in DEXT 5% WATER 100 ML IV SCH ×2 (12:08→21:58)
[2020-01-18] MEDS: PHENYLEPHRINE 80 MG in DEXT 5% WATER 492 ML IV PRN (17:51)
[2020-01-18] MEDS: FENTANYL CITRATE/PF 1,000 MCG in SODIUM CHLORIDE 0.9% 80 ML IV PRN (17:52)
[2020-01-18 18:02] LABS: COVID-19 PCR RNA NOT DETECTED
[2020-01-18] MEDS: FAMOTIDINE 20MG TABLET PO SCH (20:33)
[2020-01-19] VITALS (85 sets, daily range): BP systolic 102–158; BP diastolic 59–119
[2020-01-19] MEDS: DEXTROSE 5% WATER 1,000 ML IV SCH ×3 (02:54→22:41)
[2020-01-19] MEDS: METHYLPREDNISOLONE SOD SUCC 40 MG/ML VIAL IV SCH ×3 (02:56→17:12)
[2020-01-19 05:45] LABS: HEMOGLOBIN. 8.3 g/dL (14.0-18.0); MEAN CORPUSCULAR HEMOGLOBIN 27.2 pg (28.0-32.0); MEAN CORPUSCULAR VOLUME 85.2 fL (80.0-94.0); MEAN PLATELET VOLUME 10.6 fl (7.4-10.4); PLATELET 193 x1000/uL (130-400); RED BLOOD CELL COUNT 3.06 mill/uL (4.7-6.1); RED CELL DISTRIBUTION WIDTH 20.2 % (11.6-14.6)
[2020-01-19] MEDS: PIPERACILLIN/TAZOBACTAM 3.375 G in DEXT 5% WATER 100 ML IV SCH ×2 (05:53→14:06)
[2020-01-19] MEDS: BLOOD SUGAR DIAGNOSTIC STRIP TEST SCH ×3 (05:53→17:10)
[2020-01-19] MEDS: INSULIN LISPRO 100 UNITS/ML SUBCUT SCH ×3 (05:54→17:09)
[2020-01-19 06:39] LABS: CHLORIDE 115 mEq/L (98-107)
[2020-01-19 06:44] LABS: PHOSPHORUS 2.1 mg/dL (2.5-4.9)
[2020-01-19 07:25] LABS: PLATELET ESTIMATE NORMAL
[2020-01-19] MEDS: ASPIRIN 325MG EC TABLET PO SCH (08:53)
[2020-01-19] MEDS: ZINC SULFATE 220 MG ( 50 ) CAPSULE PO SCH (08:53)
[2020-01-19] MEDS: ASCORBIC ACID 500 MG TABLET PO SCH ×2 (08:53→21:07)
[2020-01-19] MEDS: DEMECLOCYCLINE HCL 300MG TABLET PO SCH ×2 (08:53→22:40)
[2020-01-19] MEDS: ENOXAPARIN 40MG/0.4ML SYR SUBCUT SCH (08:54)
[2020-01-19] MEDS ORDERED: POTASSIUM PHOS,M-BASIC-D-BASIC 20 MMOL in DEXT 5% WATER 243.3333 ML IV SCH (09:00)
[2020-01-19] MEDS: INSULIN GLARGINE UD 100 UNITS/ML SYR SUBCUT SCH (09:59)
[2020-01-19 10:04] LABS: BG BASE EXCESS -0.5 mmol/L (-2.0-2.0); BG CARBOXYHEMOGLOBIN 0.3 % (0.5-1.5); BG DEOXYHEMOGLOBIN 1.2 % (0.0-5.0); BG FRACTION INSPIRED OXYGEN 50; BG HCO3 ACT 23.8 mmol/L (22.0-26.0); BG METHEMOGLOBIN 0.3 % (0.0-1.5); BG OXYGEN SATURATION 98.8 % (92.0-98.5); BG OXYHEMOGLOBIN 98.2 % (94.0-97.0); BG PCO2 37.5 mmHg (35.0-45.0); BG PO2 170.2 mmHg (75.0-100.0); BG SAMPLE SITE RIGHT RADIAL; BG TIDAL VOLUME(mL) 500 mL; BG TOTAL HEMOGLOBIN 9.3 g/dL (12.0-18.0); BG VENT MODE VENT - A/C; BG VENT RATE 24 set
[2020-01-19] MEDS: PROPOFOL 10MG/ML 100ML 100 ML IV PRN (10:54)
[2020-01-19] MEDS ORDERED: POTASSIUM CHLORIDE INJ 60 MEQ in DEXT 5% WATER 500 ML IV SCH (14:00)
[2020-01-19] MEDS ORDERED: VANCOMYCIN 750 MG PREMIX 150 ML IV SCH (14:00)
[2020-01-19] MEDS ORDERED: PROPOFOL 10MG/ML 100ML 100 ML IV PRN (14:00)
[2020-01-19] MEDS: CEFEPIME 1,000 MG in DEXTROSE 5% WATER 50 ML IV SCH (17:08)
[2020-01-19] MEDS: MICAFUNGIN 100 MG in SODIUM CHLORIDE 0.9% 100 ML IV SCH (17:09)
[2020-01-19] MEDS: FAMOTIDINE 20MG TABLET PO SCH (21:07)
[2020-01-20] VITALS (61 sets, daily range): BP systolic 102–162; BP diastolic 61–93
[2020-01-20] MEDS: BLOOD SUGAR DIAGNOSTIC STRIP TEST SCH ×4 (00:14→17:19)
[2020-01-20] MEDS: INSULIN LISPRO 100 UNITS/ML SUBCUT SCH ×4 (00:17→17:19)
[2020-01-20] MEDS: METHYLPREDNISOLONE SOD SUCC 40 MG/ML VIAL IV SCH ×2 (02:10→09:30)
[2020-01-20] MEDS: FENTANYL CITRATE/PF 1,000 MCG in SODIUM CHLORIDE 0.9% 80 ML IV PRN ×2 (04:14→18:11)
[2020-01-20] MEDS: CEFEPIME 1,000 MG in DEXTROSE 5% WATER 50 ML IV SCH ×2 (05:31→16:00)
[2020-01-20 05:53] LABS: HEMATOCRIT. 27.2 % (42.0-52.0); HEMOGLOBIN. 8.7 g/dL (14.0-18.0); MEAN CORPUSCULAR HEMOGLOBIN 26.7 pg (28.0-32.0); MEAN CORPUSCULAR VOLUME 83.7 fL (80.0-94.0); MEAN PLATELET VOLUME 10.6 fl (7.4-10.4); PLATELET 190 x1000/uL (130-400); RED BLOOD CELL COUNT 3.25 mill/uL (4.7-6.1); RED CELL DISTRIBUTION WIDTH 20.3 % (11.6-14.6)
[2020-01-20 06:04] LABS: CHLORIDE 116 mEq/L (98-107)
[2020-01-20 06:14] LABS: PHOSPHORUS 2.8 mg/dL (2.5-4.9)
[2020-01-20 07:51] LABS: PLATELET ESTIMATE NORMAL
[2020-01-20 08:28] LABS: BG CARBOXYHEMOGLOBIN 0.3 % (0.5-1.5); BG DEOXYHEMOGLOBIN 2.8 % (0.0-5.0); BG FRACTION INSPIRED OXYGEN 40; BG HCO3 ACT 23.2 mmol/L (22.0-26.0); BG METHEMOGLOBIN 0.3 % (0.0-1.5); BG OXYGEN SATURATION 97.2 % (92.0-98.5); BG OXYHEMOGLOBIN 96.6 % (94.0-97.0); BG PCO2 36.1 mmHg (35.0-45.0); BG PH 7.425 (7.350-7.450); BG PO2 107.3 mmHg (75.0-100.0); BG SAMPLE SITE RIGHT RADIAL; BG TIDAL VOLUME(mL) 500 mL; BG TOTAL HEMOGLOBIN 7.9 g/dL (12.0-18.0); BG VENT MODE VENT - A/C; BG VENT RATE 20 set
[2020-01-20] MEDS: ENOXAPARIN 40MG/0.4ML SYR SUBCUT SCH (09:30)
[2020-01-20] MEDS: DEMECLOCYCLINE HCL 300MG TABLET PO SCH ×2 (09:30→21:17)
[2020-01-20] MEDS: ASCORBIC ACID 500 MG TABLET PO SCH ×2 (09:30→21:17)
[2020-01-20] MEDS: ASPIRIN 325MG EC TABLET PO SCH (09:30)
[2020-01-20] MEDS: DEXTROSE 5% WATER 1,000 ML IV SCH ×2 (09:30→17:32)
[2020-01-20] MEDS: ZINC SULFATE 220 MG ( 50 ) CAPSULE PO SCH (09:30)
[2020-01-20] MEDS: INSULIN GLARGINE UD 100 UNITS/ML SYR SUBCUT SCH (09:31)
[2020-01-20] MEDS ORDERED: LORAZEPAM 2MG/ML CPJ IV PRN (10:30)
[2020-01-20] MEDS: DESMOPRESSIN ACETATE 0.1MG TABLET PO SCH ×2 (11:27→21:17)
[2020-01-20] MEDS: MICAFUNGIN 100 MG in SODIUM CHLORIDE 0.9% 100 ML IV SCH (17:25)
[2020-01-20] MEDS: FAMOTIDINE 20MG TABLET PO SCH (21:17)
[2020-01-21] VITALS (48 sets, daily range): BP systolic 95–150; BP diastolic 60–92
[2020-01-21] MEDS: DEXTROSE 5% WATER 1,000 ML IV SCH (03:37)
[2020-01-21] MEDS: BLOOD SUGAR DIAGNOSTIC STRIP TEST SCH ×5 (05:13→23:35)
[2020-01-21] MEDS: INSULIN LISPRO 100 UNITS/ML SUBCUT SCH ×5 (05:13→23:35)
[2020-01-21] MEDS: CEFEPIME 1,000 MG in DEXTROSE 5% WATER 50 ML IV SCH ×2 (05:13→16:01)
[2020-01-21] MEDS: FENTANYL CITRATE/PF 1,000 MCG in SODIUM CHLORIDE 0.9% 80 ML IV PRN ×2 (05:14→15:33)
[2020-01-21 06:10] LABS: EOSINOPHILS % 0.2 % (0.0-5.0); HEMOGLOBIN. 8.5 g/dL (14.0-18.0); LYMPHOCYTES % 9.9 % (20.0-50.0); MEAN CORPUSCULAR VOLUME 82.5 fL (80.0-94.0); MEAN PLATELET VOLUME 10.1 fl (7.4-10.4); MONOCYTES % 1.7 % (2.0-8.0); NEUTROPHILS % 88.2 % (40.0-76.0); PLATELET 177 x1000/uL (130-400); RED BLOOD CELL COUNT 3.15 mill/uL (4.7-6.1); RED CELL DISTRIBUTION WIDTH 20.2 % (11.6-14.6)
[2020-01-21 06:32] LABS: CHLORIDE 115 mEq/L (98-107)
[2020-01-21] MEDS: DESMOPRESSIN ACETATE 0.1MG TABLET PO SCH ×2 (08:59→20:33)
[2020-01-21] MEDS: ENOXAPARIN 40MG/0.4ML SYR SUBCUT SCH (08:59)
[2020-01-21] MEDS: ASPIRIN 325MG EC TABLET PO SCH (08:59)
[2020-01-21] MEDS: DEMECLOCYCLINE HCL 300MG TABLET PO SCH ×2 (08:59→20:33)
[2020-01-21] MEDS: ASCORBIC ACID 500 MG TABLET PO SCH ×2 (08:59→20:33)
[2020-01-21] MEDS: ZINC SULFATE 220 MG ( 50 ) CAPSULE PO SCH (08:59)
[2020-01-21] MEDS: INSULIN GLARGINE UD 100 UNITS/ML SYR SUBCUT SCH (09:32)
[2020-01-21 09:51] LABS: BG BASE EXCESS 1.2 mmol/L (-2.0-2.0); BG CARBOXYHEMOGLOBIN 0.3 % (0.5-1.5); BG DEOXYHEMOGLOBIN 2.8 % (0.0-5.0); BG FRACTION INSPIRED OXYGEN 40; BG HCO3 ACT 24.4 mmol/L (22.0-26.0); BG METHEMOGLOBIN 0.3 % (0.0-1.5); BG OXYGEN SATURATION 97.2 % (92.0-98.5); BG OXYHEMOGLOBIN 96.6 % (94.0-97.0); BG PCO2 33.2 mmHg (35.0-45.0); BG PH 7.485 (7.350-7.450); BG PO2 101.1 mmHg (75.0-100.0); BG SAMPLE SITE RIGHT RADIAL; BG TIDAL VOLUME(mL) 500 mL; BG TOTAL HEMOGLOBIN 9.2 g/dL (12.0-18.0); BG VENT MODE VENT - A/C; BG VENT RATE 20 set
[2020-01-21] MEDS ORDERED: POTASSIUM CHLORIDE 20MEQ/PACKET PO NR (10:45)
[2020-01-21] MEDS: VANCOMYCIN 500 MG PREMIX 100 ML IV SCH (11:06)
[2020-01-21] MEDS: MICAFUNGIN 100 MG in SODIUM CHLORIDE 0.9% 100 ML IV SCH (17:02)
[2020-01-21] MEDS: FAMOTIDINE 20MG TABLET PO SCH (20:33)
[2020-01-21] MEDS: ACETAMINOPHEN 325MG TABLET PO PRN (20:34)
[2020-01-21] MEDS: DEXTROSE 50% WATER 50ML SYRINGE IV PRN (23:35)
[2020-01-22] VITALS (36 sets, daily range): BP systolic 95–154; BP diastolic 56–101
[2020-01-22] MEDS: FENTANYL CITRATE/PF 1,000 MCG in SODIUM CHLORIDE 0.9% 80 ML IV PRN ×2 (00:10→09:49)
[2020-01-22] MEDS: BLOOD SUGAR DIAGNOSTIC STRIP TEST SCH ×3 (05:19→17:22)
[2020-01-22] MEDS: CEFEPIME 1,000 MG in DEXTROSE 5% WATER 50 ML IV SCH ×2 (05:20→16:03)
[2020-01-22] MEDS: INSULIN LISPRO 100 UNITS/ML SUBCUT SCH ×3 (05:24→17:22)
[2020-01-22 05:47] LABS: HEMATOCRIT. 26.3 % (42.0-52.0); HEMOGLOBIN. 8.4 g/dL (14.0-18.0); MEAN CORPUSCULAR HEMOGLOBIN 26.4 pg (28.0-32.0); MEAN CORPUSCULAR VOLUME 82.6 fL (80.0-94.0); MEAN PLATELET VOLUME 10.2 fl (7.4-10.4); PLATELET 164 x1000/uL (130-400); RED BLOOD CELL COUNT 3.19 mill/uL (4.7-6.1); RED CELL DISTRIBUTION WIDTH 20.1 % (11.6-14.6)
[2020-01-22 05:57] LABS: CHLORIDE 120 mEq/L (98-107)
[2020-01-22 08:02] LABS: PLATELET ESTIMATE NORMAL
[2020-01-22] MEDS: ENOXAPARIN 40MG/0.4ML SYR SUBCUT SCH (08:05)
[2020-01-22] MEDS: ASPIRIN 325MG EC TABLET PO SCH (08:06)
[2020-01-22] MEDS: DEMECLOCYCLINE HCL 300MG TABLET PO SCH (08:06)
[2020-01-22] MEDS: ASCORBIC ACID 500 MG TABLET PO SCH ×2 (08:06→20:09)
[2020-01-22] MEDS: ZINC SULFATE 220 MG ( 50 ) CAPSULE PO SCH (08:06)
[2020-01-22] MEDS: DESMOPRESSIN ACETATE 0.1MG TABLET PO SCH ×2 (08:06→20:09)
[2020-01-22 09:22] LABS: BG BASE EXCESS 0.8 mmol/L (-2.0-2.0); BG CARBOXYHEMOGLOBIN 0.3 % (0.5-1.5); BG DEOXYHEMOGLOBIN 5.6 % (0.0-5.0); BG FRACTION INSPIRED OXYGEN 35; BG HCO3 ACT 23.2 mmol/L (22.0-26.0); BG METHEMOGLOBIN 0.2 % (0.0-1.5); BG OXYGEN SATURATION 94.4 % (92.0-98.5); BG OXYHEMOGLOBIN 93.9 % (94.0-97.0); BG PH 7.521 (7.350-7.450); BG PO2 69.7 mmHg (75.0-100.0); BG SAMPLE SITE RIGHT RADIAL; BG TIDAL VOLUME(mL) 500 mL; BG TOTAL HEMOGLOBIN 8.8 g/dL (12.0-18.0); BG VENT MODE VENT - A/C; BG VENT RATE 18 set
[2020-01-22] MEDS ORDERED: POTASSIUM CHLORIDE 20MEQ/PACKET PO SCH (10:00)
[2020-01-22] MEDS ORDERED: DOCUSATE SODIUM SUGAR FREE 100MG/10ML UDC NG PRN ×2 (10:30→10:45)
[2020-01-22] MEDS: VANCOMYCIN 500 MG PREMIX 100 ML IV SCH (11:09)
[2020-01-22] MEDS: INSULIN GLARGINE UD 100 UNITS/ML SYR SUBCUT SCH (11:09)
[2020-01-22 11:32] LABS: BG BASE EXCESS 1.9 mmol/L (-2.0-2.0); BG CARBOXYHEMOGLOBIN 0.3 % (0.5-1.5); BG DEOXYHEMOGLOBIN 6.7 % (0.0-5.0); BG FRACTION INSPIRED OXYGEN 35; BG HCO3 ACT 24.6 mmol/L (22.0-26.0); BG METHEMOGLOBIN 0.3 % (0.0-1.5); BG OXYGEN SATURATION 93.3 % (92.0-98.5); BG OXYHEMOGLOBIN 92.7 % (94.0-97.0); BG PCO2 31.2 mmHg (35.0-45.0); BG PH 7.515 (7.350-7.450); BG PRESSURE SUPPORT 8; BG SAMPLE SITE RIGHT RADIAL; BG TOTAL HEMOGLOBIN 8.7 g/dL (12.0-18.0); BG VENT MODE VENT - CPAP
[2020-01-22] MEDS ORDERED: DIATR MEGLU/DIATRIZOATE SOLN 30ML PO NR (14:15)
[2020-01-22] MEDS ORDERED: ACETYLCYSTEINE 100MG/ML 10% VIAL 4ML INH NR (15:30)
[2020-01-22] MEDS ORDERED: IPRATROPIUM/ALBUTEROL 0.5-3(2.5)MG/3ML NEB HHN PRN (15:30)
[2020-01-22] MEDS: MICAFUNGIN 100 MG in SODIUM CHLORIDE 0.9% 100 ML IV SCH (16:35)
[2020-01-22] MEDS: FAMOTIDINE 20MG TABLET PO SCH (20:09)
[2020-01-23] VITALS (29 sets, daily range): BP systolic 124–154; BP diastolic 65–89
[2020-01-23] MEDS: ACETYLCYSTEINE 100MG/ML 10% VIAL 4ML INH SCH ×2 (00:45→08:50)
[2020-01-23] MEDS: IPRATROPIUM/ALBUTEROL 0.5-3(2.5)MG/3ML NEB HHN SCH ×3 (00:45→15:08)
[2020-01-23] MEDS: CEFEPIME 1,000 MG in DEXTROSE 5% WATER 50 ML IV SCH ×2 (04:59→16:18)
[2020-01-23] MEDS: BLOOD SUGAR DIAGNOSTIC STRIP TEST SCH ×4 (05:55→17:09)
[2020-01-23] MEDS: INSULIN LISPRO 100 UNITS/ML SUBCUT SCH ×4 (05:55→17:09)
[2020-01-23] MEDS: ASPIRIN 325MG EC TABLET PO SCH (08:40)
[2020-01-23] MEDS: ZINC SULFATE 220 MG ( 50 ) CAPSULE PO SCH (08:40)
[2020-01-23] MEDS: ENOXAPARIN 40MG/0.4ML SYR SUBCUT SCH (08:40)
[2020-01-23] MEDS: DESMOPRESSIN ACETATE 0.1MG TABLET PO SCH ×2 (08:40→20:44)
[2020-01-23] MEDS: ASCORBIC ACID 500 MG TABLET PO SCH ×2 (08:40→20:44)
[2020-01-23] MEDS: INSULIN GLARGINE UD 100 UNITS/ML SYR SUBCUT SCH (10:11)
[2020-01-23 10:47] LABS: HEMATOCRIT 26.5 % (42.0-52.0); HEMOGLOBIN 8.5 g/dL (14.0-18.0); MEAN CORPUSCULAR HEMOGLOBIN 26.5 pg (28.0-32.0); PLATELET 167 x1000/uL (130-400); RED CELL DISTRIBUTION WIDTH 20.6 % (11.6-14.6)
[2020-01-23 11:07] LABS: CHLORIDE 124 mEq/L (98-107)
[2020-01-23] MEDS: VANCOMYCIN 500 MG PREMIX 100 ML IV SCH (12:16)
[2020-01-23] MEDS: MICAFUNGIN 100 MG in SODIUM CHLORIDE 0.9% 100 ML IV SCH (16:53)
[2020-01-23] MEDS: FAMOTIDINE 20MG TABLET PO SCH (20:44)
[2020-01-24] VITALS (40 sets, daily range): BP systolic 120–191; BP diastolic 59–94
[2020-01-24] MEDS: ACETYLCYSTEINE 100MG/ML 10% VIAL 4ML INH SCH ×3 (01:06→21:10)
[2020-01-24] MEDS: IPRATROPIUM/ALBUTEROL 0.5-3(2.5)MG/3ML NEB HHN SCH ×4 (01:06→21:10)
[2020-01-24] MEDS: ACETAMINOPHEN 325MG TABLET PO PRN (03:14)
[2020-01-24] MEDS: CEFEPIME 1,000 MG in DEXTROSE 5% WATER 50 ML IV SCH ×2 (05:42→17:11)
[2020-01-24] MEDS: INSULIN LISPRO 100 UNITS/ML SUBCUT SCH ×3 (06:00→11:35)
[2020-01-24] MEDS: BLOOD SUGAR DIAGNOSTIC STRIP TEST SCH ×4 (06:07→17:04)
[2020-01-24 06:27] LABS: EOSINOPHILS % 1.4 % (0.0-5.0); HEMATOCRIT. 26.6 % (42.0-52.0); HEMOGLOBIN. 8.4 g/dL (14.0-18.0); MEAN CORPUSCULAR HEMOGLOBIN 26.4 pg (28.0-32.0); MEAN CORPUSCULAR VOLUME 83.5 fL (80.0-94.0); MEAN PLATELET VOLUME 10.4 fl (7.4-10.4); MONOCYTES % 3.6 % (2.0-8.0); PLATELET 172 x1000/uL (130-400); RED BLOOD CELL COUNT 3.19 mill/uL (4.7-6.1); RED CELL DISTRIBUTION WIDTH 20.5 % (11.6-14.6)
[2020-01-24 06:59] LABS: CHLORIDE 129 mEq/L (98-107)
[2020-01-24] MEDS: ASPIRIN 325MG EC TABLET PO SCH (08:02)
[2020-01-24] MEDS: ZINC SULFATE 220 MG ( 50 ) CAPSULE PO SCH (08:02)
[2020-01-24] MEDS: DESMOPRESSIN ACETATE 0.1MG TABLET PO SCH (08:02)
[2020-01-24] MEDS: ASCORBIC ACID 500 MG TABLET PO SCH ×2 (08:02→21:44)
[2020-01-24] MEDS: ENOXAPARIN 40MG/0.4ML SYR SUBCUT SCH (08:03)
[2020-01-24] MEDS ORDERED: DESMOPRESSIN ACETATE IVPB 1 MCG in SODIUM CHLORIDE 0.9% 50 ML IV SCH (09:00)
[2020-01-24] MEDS: DEXTROSE 5% WATER 1,000 ML IV SCH ×2 (09:59→21:43)
[2020-01-24] MEDS: INSULIN GLARGINE UD 100 UNITS/ML SYR SUBCUT SCH (10:18)
[2020-01-24] MEDS: DESMOPRESSIN ACETATE 4MCG/ML AMP IV SCH ×2 (11:22→22:27)
[2020-01-24] MEDS: VANCOMYCIN 1 G PREMIX 200 ML IV SCH (15:28)
[2020-01-24] MEDS: FAMOTIDINE 20MG TABLET PO SCH (21:44)
[2020-01-24] MEDS: MICAFUNGIN 100 MG in SODIUM CHLORIDE 0.9% 100 ML IV SCH (21:46)
[2020-01-25] VITALS: BP 122/71
[2020-01-25 04:00] VITALS: BP 120/81
[2020-01-25] MEDS: INSULIN LISPRO 100 UNITS/ML SUBCUT SCH ×5 (06:00→23:25)
[2020-01-25] MEDS: BLOOD SUGAR DIAGNOSTIC STRIP TEST SCH ×5 (06:25→23:25)
[2020-01-25] MEDS: DEXTROSE 50% WATER 50ML SYRINGE IV PRN ×4 (06:26→19:18)
[2020-01-25] MEDS: CEFEPIME 1,000 MG in DEXTROSE 5% WATER 50 ML IV SCH ×2 (07:00→17:56)
[2020-01-25 08:00] VITALS: BP 111/54
[2020-01-25] MEDS: IPRATROPIUM/ALBUTEROL 0.5-3(2.5)MG/3ML NEB HHN SCH ×2 (08:32→15:56)
[2020-01-25] MEDS: ACETYLCYSTEINE 100MG/ML 10% VIAL 4ML INH SCH (08:33)
[2020-01-25] MEDS: DEXTROSE 5% WATER 1,000 ML IV SCH ×2 (09:24→15:00)
[2020-01-25] MEDS: DESMOPRESSIN ACETATE 4MCG/ML AMP IV SCH ×2 (09:37→21:35)
[2020-01-25] MEDS: ENOXAPARIN 40MG/0.4ML SYR SUBCUT SCH (09:38)
[2020-01-25] MEDS: INSULIN GLARGINE UD 100 UNITS/ML SYR SUBCUT SCH (09:43)
[2020-01-25] MEDS: ZINC SULFATE 220 MG ( 50 ) CAPSULE PO SCH (09:44)
[2020-01-25] MEDS: ASCORBIC ACID 500 MG TABLET PO SCH ×2 (09:44→20:21)
[2020-01-25] MEDS: ASPIRIN 325MG TABLET PEG SCH (10:11)
[2020-01-25] MEDS: VANCOMYCIN 1 G PREMIX 200 ML IV SCH (11:00)
[2020-01-25 11:18] LABS: BASOPHILS % 0.1 % (0.0-2.0); EOSINOPHILS % 1.4 % (0.0-5.0); HEMATOCRIT. 24.4 % (42.0-52.0); HEMOGLOBIN. 7.8 g/dL (14.0-18.0); LYMPHOCYTES % 14.2 % (20.0-50.0); MEAN CORPUSCULAR HEMOGLOBIN 26.5 pg (28.0-32.0); MEAN CORPUSCULAR VOLUME 83.4 fL (80.0-94.0); MEAN PLATELET VOLUME 10.4 fl (7.4-10.4); MONOCYTES % 5.6 % (2.0-8.0); NEUTROPHILS % 78.7 % (40.0-76.0); PLATELET 155 x1000/uL (130-400); RED BLOOD CELL COUNT 2.93 mill/uL (4.7-6.1); RED CELL DISTRIBUTION WIDTH 20.4 % (11.6-14.6)
[2020-01-25 12:00] VITALS: BP 103/53
[2020-01-25 12:49] LABS: CHLORIDE 122 mEq/L (98-107)
[2020-01-25] MEDS ORDERED: DIATR MEGLU/DIATRIZOATE SOLN 30ML PO SCH (14:45)
[2020-01-25 16:00] VITALS: BP 111/58
[2020-01-25] MEDS ORDERED: DEXT 10% WATER 1,000 ML IV ONE (16:15)
[2020-01-25] MEDS: MICAFUNGIN 100 MG in SODIUM CHLORIDE 0.9% 100 ML IV SCH (18:31)
[2020-01-25 20:00] VITALS: BP 118/64
[2020-01-25] MEDS: FAMOTIDINE 20MG TABLET PO SCH (20:21)
[2020-01-26] VITALS: BP 125/99
[2020-01-26] MEDS: IPRATROPIUM/ALBUTEROL 0.5-3(2.5)MG/3ML NEB HHN SCH ×3 (00:11→15:37)
[2020-01-26] MEDS: ACETYLCYSTEINE 100MG/ML 10% VIAL 4ML INH SCH ×2 (00:12→07:37)
[2020-01-26 04:00] VITALS: BP 128/84
[2020-01-26] MEDS: CEFEPIME 1,000 MG in DEXTROSE 5% WATER 50 ML IV SCH ×2 (04:09→17:41)
[2020-01-26] MEDS: INSULIN LISPRO 100 UNITS/ML SUBCUT SCH ×3 (06:00→17:01)
[2020-01-26] MEDS: BLOOD SUGAR DIAGNOSTIC STRIP TEST SCH ×3 (06:09→17:01)
[2020-01-26 08:00] VITALS: BP 116/66
[2020-01-26] MEDS: INSULIN GLARGINE UD 100 UNITS/ML SYR SUBCUT SCH (10:00)
[2020-01-26] MEDS: DESMOPRESSIN ACETATE 4MCG/ML AMP IV SCH ×2 (10:17→23:24)
[2020-01-26] MEDS: ASCORBIC ACID 500 MG TABLET PO SCH ×2 (10:18→21:01)
[2020-01-26] MEDS: METOCLOPRAMIDE HCL 10MG/2ML VIAL IV SCH ×4 (10:18→23:32)
[2020-01-26] MEDS: ASPIRIN 325MG TABLET PEG SCH (10:18)
[2020-01-26] MEDS: ENOXAPARIN 40MG/0.4ML SYR SUBCUT SCH (10:19)
[2020-01-26] MEDS: ZINC SULFATE 220 MG ( 50 ) CAPSULE PO SCH (10:19)
[2020-01-26 12:00] VITALS: BP 116/69
[2020-01-26] MEDS: VANCOMYCIN 1 G PREMIX 200 ML IV SCH (12:14)
[2020-01-26] MEDS: DEXTROSE 5% WATER 1,000 ML IV SCH ×2 (12:16→21:05)
[2020-01-26 16:00] VITALS: BP 112/66
[2020-01-26] MEDS ORDERED: GUAIFENESIN 200MG/10ML SUGAR FREE UDC PO PRN (16:30)
[2020-01-26] MEDS: MICAFUNGIN 100 MG in SODIUM CHLORIDE 0.9% 100 ML IV SCH (17:41)
[2020-01-26 20:00] VITALS: BP 126/69
[2020-01-26] MEDS: FAMOTIDINE 20MG TABLET PO SCH (21:01)
[2020-01-27] VITALS: BP 142/60
[2020-01-27] MEDS: BLOOD SUGAR DIAGNOSTIC STRIP TEST SCH ×5 (00:12→23:08)
[2020-01-27] MEDS: IPRATROPIUM/ALBUTEROL 0.5-3(2.5)MG/3ML NEB HHN SCH ×4 (01:30→20:23)
[2020-01-27 04:00] VITALS: BP 136/74
[2020-01-27] MEDS: CEFEPIME 1,000 MG in DEXTROSE 5% WATER 50 ML IV SCH (05:13)
[2020-01-27] MEDS: INSULIN LISPRO 100 UNITS/ML SUBCUT SCH ×5 (06:00→23:08)
[2020-01-27] MEDS: METOCLOPRAMIDE HCL 10MG/2ML VIAL IV SCH ×4 (06:11→23:08)
[2020-01-27] MEDS: DEXTROSE 5% WATER 1,000 ML IV SCH ×2 (06:51→17:42)
[2020-01-27 08:00] VITALS: BP 131/75
[2020-01-27] MEDS: DESMOPRESSIN ACETATE 4MCG/ML AMP IV SCH ×2 (09:37→22:39)
[2020-01-27] MEDS: ASPIRIN 325MG TABLET PEG SCH (09:37)
[2020-01-27] MEDS: ASCORBIC ACID 500 MG TABLET PO SCH ×2 (09:37→22:39)
[2020-01-27] MEDS: ZINC SULFATE 220 MG ( 50 ) CAPSULE PO SCH (09:37)
[2020-01-27] MEDS: ENOXAPARIN 40MG/0.4ML SYR SUBCUT SCH (09:41)
[2020-01-27] MEDS: INSULIN GLARGINE UD 100 UNITS/ML SYR SUBCUT SCH (09:41)
[2020-01-27] MEDS: VANCOMYCIN 1,000 MG in DEXT 5% WATER 250 ML IV SCH (11:49)
[2020-01-27 12:00] VITALS: BP 118/73
[2020-01-27 16:00] VITALS: BP 116/70
[2020-01-27] MEDS: METRONIDAZOLE 500MG TABLET PO SCH ×2 (16:14→23:07)
[2020-01-27] MEDS: CEFTRIAXONE 1 G PREMIX 50 ML IV SCH (16:28)
[2020-01-27 16:39] LABS: BASOPHILS % 0.2 % (0.0-2.0); CHLORIDE 111 mEq/L (98-107); EOSINOPHILS % 0.1 % (0.0-5.0); HEMATOCRIT. 26.7 % (42.0-52.0); HEMOGLOBIN. 8.4 g/dL (14.0-18.0); LYMPHOCYTES % 7.1 % (20.0-50.0); MEAN CORPUSCULAR HEMOGLOBIN 26.4 pg (28.0-32.0); MEAN PLATELET VOLUME 10.1 fl (7.4-10.4); MONOCYTES % 4.9 % (2.0-8.0); NEUTROPHILS % 87.7 % (40.0-76.0); PLATELET 187 x1000/uL (130-400); RED BLOOD CELL COUNT 3.18 mill/uL (4.7-6.1); RED CELL DISTRIBUTION WIDTH 20.2 % (11.6-14.6)
[2020-01-27] MEDS: MICAFUNGIN 100 MG in SODIUM CHLORIDE 0.9% 100 ML IV SCH (17:41)
[2020-01-27 20:00] VITALS: BP 114/55
[2020-01-27] MEDS: ACETYLCYSTEINE 100MG/ML 10% VIAL 4ML INH SCH (20:24)
[2020-01-27] MEDS: FAMOTIDINE 20MG TABLET PO SCH (22:39)
[2020-01-28] VITALS (7 sets, daily range): BP systolic 95–124; BP diastolic 45–82
[2020-01-28] MEDS: ACETAMINOPHEN 325MG TABLET PO PRN (00:04)
[2020-01-28] MEDS: DEXTROSE 5% WATER 1,000 ML IV SCH (00:05)
[2020-01-28] MEDS: IPRATROPIUM/ALBUTEROL 0.5-3(2.5)MG/3ML NEB HHN SCH ×3 (04:30→17:06)
[2020-01-28] MEDS: METOCLOPRAMIDE HCL 10MG/2ML VIAL IV SCH ×3 (05:59→17:29)
[2020-01-28] MEDS: BLOOD SUGAR DIAGNOSTIC STRIP TEST SCH ×3 (06:00→23:23)
[2020-01-28] MEDS: INSULIN LISPRO 100 UNITS/ML SUBCUT SCH ×3 (06:00→23:54)
[2020-01-28 07:16] LABS: CHLORIDE 109 mEq/L (98-107)
[2020-01-28 07:18] LABS: BASOPHILS % 0.1 % (0.0-2.0); EOSINOPHILS % 0.4 % (0.0-5.0); HEMATOCRIT. 22.8 % (42.0-52.0); HEMOGLOBIN. 7.3 g/dL (14.0-18.0); LYMPHOCYTES % 10.5 % (20.0-50.0); MEAN CORPUSCULAR HEMOGLOBIN 26.2 pg (28.0-32.0); MEAN CORPUSCULAR VOLUME 81.6 fL (80.0-94.0); MEAN PLATELET VOLUME 10.4 fl (7.4-10.4); MONOCYTES % 5.4 % (2.0-8.0); NEUTROPHILS % 83.6 % (40.0-76.0); PLATELET 186 x1000/uL (130-400); RED BLOOD CELL COUNT 2.79 mill/uL (4.7-6.1)
[2020-01-28] MEDS: DEXT 5%/0.45% NACL 1000ML 1,000 ML IV SCH (08:45)
[2020-01-28] MEDS: DESMOPRESSIN ACETATE 4MCG/ML AMP IV SCH ×2 (09:00→23:56)
[2020-01-28] MEDS: ACETYLCYSTEINE 100MG/ML 10% VIAL 4ML INH SCH ×2 (09:21→20:19)
[2020-01-28] MEDS: ASPIRIN 325MG TABLET PEG SCH (09:41)
[2020-01-28] MEDS: ASCORBIC ACID 500 MG TABLET PO SCH ×2 (09:41→20:45)
[2020-01-28] MEDS: METRONIDAZOLE 500MG TABLET PO SCH ×2 (09:41→20:45)
[2020-01-28] MEDS: ZINC SULFATE 220 MG ( 50 ) CAPSULE PO SCH (09:41)
[2020-01-28] MEDS: CEFTRIAXONE 1 G PREMIX 50 ML IV SCH (09:42)
[2020-01-28] MEDS: ENOXAPARIN 40MG/0.4ML SYR SUBCUT SCH (09:42)
[2020-01-28] MEDS: INSULIN GLARGINE UD 100 UNITS/ML SYR SUBCUT SCH (10:47)
[2020-01-28] MEDS: VANCOMYCIN 1,000 MG in DEXT 5% WATER 250 ML IV SCH (11:00)
[2020-01-28] MEDS ORDERED: EPOETIN ALFA 4000UNITS/ML VIAL SUBCUT NR (12:30)
[2020-01-28] MEDS: MICAFUNGIN 100 MG in SODIUM CHLORIDE 0.9% 100 ML IV SCH (17:30)
[2020-01-28] MEDS: FAMOTIDINE 20MG TABLET PO SCH (20:45)
[2020-01-29] MEDS: IPRATROPIUM/ALBUTEROL 0.5-3(2.5)MG/3ML NEB HHN SCH ×2 (00:06→09:53)
[2020-01-29 04:00] VITALS: BP 120/65
[2020-01-29] MEDS: METOCLOPRAMIDE HCL 10MG/2ML VIAL IV SCH ×2 (04:36→11:07)
[2020-01-29] MEDS: DEXT 5%/0.45% NACL 1000ML 1,000 ML IV SCH (05:35)
[2020-01-29] MEDS: INSULIN LISPRO 100 UNITS/ML SUBCUT SCH ×2 (06:00→12:00)
[2020-01-29] MEDS: BLOOD SUGAR DIAGNOSTIC STRIP TEST SCH ×2 (06:54→12:05)
[2020-01-29 08:00] VITALS: BP 114/65
[2020-01-29] MEDS: DESMOPRESSIN ACETATE 4MCG/ML AMP IV SCH (08:45)
[2020-01-29] MEDS: ASCORBIC ACID 500 MG TABLET PO SCH (08:45)
[2020-01-29] MEDS: ZINC SULFATE 220 MG ( 50 ) CAPSULE PO SCH (08:45)
[2020-01-29] MEDS: ASPIRIN 325MG TABLET PEG SCH (08:45)
[2020-01-29] MEDS: CEFTRIAXONE 1 G PREMIX 50 ML IV SCH (08:45)
[2020-01-29] MEDS: METRONIDAZOLE 500MG TABLET PO SCH (08:45)
[2020-01-29] MEDS: ENOXAPARIN 40MG/0.4ML SYR SUBCUT SCH (08:46)
[2020-01-29 09:01] LABS: CHLORIDE 117 mEq/L (98-107)
[2020-01-29 09:03] LABS: BASOPHILS % 0.4 % (0.0-2.0); EOSINOPHILS % 0.5 % (0.0-5.0); HEMATOCRIT. 24.1 % (42.0-52.0); HEMOGLOBIN. 7.8 g/dL (14.0-18.0); LYMPHOCYTES % 8.2 % (20.0-50.0); MEAN CORPUSCULAR HEMOGLOBIN 26.4 pg (28.0-32.0); MEAN CORPUSCULAR VOLUME 81.9 fL (80.0-94.0); MEAN PLATELET VOLUME 10.3 fl (7.4-10.4); NEUTROPHILS % 85.9 % (40.0-76.0); PLATELET 280 x1000/uL (130-400); RED BLOOD CELL COUNT 2.95 mill/uL (4.7-6.1); RED CELL DISTRIBUTION WIDTH 19.9 % (11.6-14.6)
[2020-01-29] MEDS: ACETYLCYSTEINE 100MG/ML 10% VIAL 4ML INH SCH (09:53)
[2020-01-29] MEDS: VANCOMYCIN 1,000 MG in DEXT 5% WATER 250 ML IV SCH (11:04)
[2020-01-29] MEDS: INSULIN GLARGINE UD 100 UNITS/ML SYR SUBCUT SCH (11:04)
[2020-01-29 12:00] VITALS: BP 117/69
[2020-01-29 14:08] VITALS: BP 117/69
[2020-01-29 16:00] VITALS: BP 106/61
== END 2020-01-29 16:20 | DRG 870 ==
LOC: ER 10:12 → MICUSO 13:41 → EDBEDREQ 19:34 → ENRESERV 20:28 → CVICU 01-19 19:15 → 5WST 01-24 18:49
PROVIDERS: ADMIT Internal Medicine; ATTEND Internal Medicine
PROC: 0BH17EZ Insertion of Endotracheal Airway into Trachea, Via Natural or Artificial Opening (ICD-10-PCS; principal; 2020-01-16)
PROC: 5A1955Z Respiratory Ventilation, Greater than 96 Consecutive Hours (ICD-10-PCS; 2020-01-16)
PROC: 05HY33Z Insertion of Infusion Device into Upper Vein, Percutaneous Approach (ICD-10-PCS; 2020-01-16)
PROC: B54MZZA Ultrasonography of Right Upper Extremity Veins, Guidance (ICD-10-PCS; 2020-01-16)
DX: A41.02 Sepsis due to Methicillin resistant Staphylococcus aureus (principal); L89.154 Pressure ulcer of sacral region, stage 4; J69.0 Pneumonitis due to inhalation of food and vomit; R65.21 Severe sepsis with septic shock; N17.0 Acute kidney failure with tubular necrosis; E43 Unspecified severe protein-calorie malnutrition; G92 Toxic encephalopathy; J96.21 Acute and chronic respiratory failure with hypoxia; N39.0 Urinary tract infection, site not specified; B49 Unspecified mycosis; I42.9 Cardiomyopathy, unspecified; J44.0 Chronic obstructive pulmonary disease with (acute) lower respiratory infection; E23.2 Diabetes insipidus; I48.91 Unspecified atrial fibrillation; Y95 Nosocomial condition; N18.9 Chronic kidney disease, unspecified; E11.22 Type 2 diabetes mellitus with diabetic chronic kidney disease; E78.5 Hyperlipidemia, unspecified; R13.10 Dysphagia, unspecified; I13.10 Hypertensive heart and chronic kidney disease without heart failure, with stage 1 through stage 4 chronic kidney disease, or unspecified chronic kidney disease; K21.9 Gastro-esophageal reflux disease without esophagitis; B96.4 Proteus (mirabilis) (morganii) as the cause of diseases classified elsewhere; L89.620 Pressure ulcer of left heel, unstageable; L89.610 Pressure ulcer of right heel, unstageable; R79.89 Other specified abnormal findings of blood chemistry; Z20.828 Contact with and (suspected) exposure to other viral communicable diseases; I50.9 Heart failure, unspecified; D64.9 Anemia, unspecified; D72.810 Lymphocytopenia; Z86.73 Personal history of transient ischemic attack (TIA), and cerebral infarction without residual deficits; Z93.1 Gastrostomy status; Z74.01 Bed confinement status; Z87.891 Personal history of nicotine dependence; Z68.21 Body mass index [BMI] 21.0-21.9, adult; Z79.899 Other long term (current) drug therapy; I25.2 Old myocardial infarction; Z87.01 Personal history of pneumonia (recurrent); Z78.1 Physical restraint status
CPT/HCPCS: 36415; 36600; 71045; 74018; 74176; 76937; 80048; 80053; 80061; 80202; 81003; 82375; 82550; 82805; 82962; 83036; 83605; 83735; 83880; 84100; 84478; 84484; 85025; 85027; 85379; 85651; 86140; 87070; 87077; 87106; 87186; 93005; 93306; 94640; 96365; 99291; C1725; J0692; J0696; J0885; J1650; J1815; J2060; J2248; J2370; J2405; J2543; J2597; J2704; J2765; J2920; J3010; J3370; J3480; J3490; J7050; J7060; J7070; J7608; Q9963

== ENCOUNTER 2020-04-22 12:40 | Inpatient (IN) | payer MEDICARE, MEDICAID ==
[~2020-04-22] VITALS: Ht 172.7 cm; Wt 67.8 kg
[2020-04-22] MEDS: VANCOMYCIN 1 G PREMIX 200 ML IV SCH (06:00)
[2020-04-22] MEDS ORDERED: SODIUM CHLORIDE 0.9% 1000ML BAG (SEPSIS BOLUS) IV ONE (13:15)
[2020-04-22 14:33] LABS: CLARITY URINE CLEAR (CLEAR); COLOR URINE YELLOW (YELLOW); KETONES URINE NEGATIVE (NEGATIVE); LEUKOCYTE ESTERASE URINE 1+ (NEGATIVE); NITRITE URINE NEGATIVE (NEGATIVE); OCCULT BLOOD URINE 2+ (NEGATIVE); PROTEIN URINE TRACE (NEGATIVE); SPECIFIC GRAVITY URINE 1.018 (1.005-1.030); UROBILINOGEN URINE 0.2 E.U./dL (0.2-1.0)
[2020-04-22 14:37] LABS: CHLORIDE 109 mEq/L (98-107)
[2020-04-22 14:41] LABS: INR 1.1; PROTHROMBIN TIME 11.1 sec (9.6-11.0)
[2020-04-22 14:45] LABS: MEAN CORPUSCULAR HEMOGLOBIN 19.1 pg (28.0-32.0); MEAN CORPUSCULAR VOLUME 68.6 fL (80.0-94.0); PLATELET 673 x1000/uL (130-400); RED BLOOD CELL COUNT 2.51 mill/uL (4.7-6.1); RED CELL DISTRIBUTION WIDTH 21.9 % (11.6-14.6)
[2020-04-22 14:47] LABS: CREATINE KINASE 49 IU/L (39-308)
[2020-04-22 14:51] LABS: HEMATOCRIT. 17.3 % (42.0-52.0); HEMOGLOBIN. 4.8 g/dL (14.0-18.0)
[2020-04-22 15:22] LABS: PLATELET ESTIMATE INCREASED
[2020-04-22] MEDS ORDERED: PANTOPRAZOLE 80 MG in SODIUM CHLORIDE 0.9% 100 ML IV SCH (15:30)
[2020-04-22] MEDS: PANTOPRAZOLE 80 MG in SODIUM CHLORIDE 0.9% 100 ML IV SCH (16:00)
[2020-04-22] MEDS ORDERED: NA PHOS,M-B/NA PHOS,DI-BA ENEMA 118ML PR PRN (17:00)
[2020-04-22] MEDS ORDERED: ZOLPIDEM TARTRATE 5MG TABLET PO PRN (17:00)
[2020-04-22] MEDS ORDERED: DOCUSATE SODIUM 100MG CAPSULE PO PRN (17:00)
[2020-04-22] MEDS ORDERED: ACETAMINOPHEN 650MG/20.3ML UDC GT PRN ×2 (17:00)
[2020-04-22] MEDS ORDERED: MAGNESIUM/ALUMINUM HYDROXIDE/SIMETHICONE 30ML UDC PO PRN (17:00)
[2020-04-22] MEDS ORDERED: CLONIDINE 0.1MG TABLET PO PRN (17:00)
[2020-04-22] MEDS ORDERED: ALBUTEROL 6.7GM HFA INHALER ORI PRN (17:00)
[2020-04-22] MEDS ORDERED: TRAMADOL 50MG TABLET PO PRN (17:00)
[2020-04-22] MEDS ORDERED: ONDANSETRON HCL 4MG/2ML INJ IV PRN (17:00)
[2020-04-22] MEDS ORDERED: GUAIFENESIN 200MG/10ML SUGAR FREE UDC PO PRN (17:00)
[2020-04-22] MEDS ORDERED: NITROGLYCERIN 0.4MG TABLET SL SL PRN (17:00)
[2020-04-22] MEDS: DEXT 5%/LACTATED RINGERS 1,000 ML IV SCH (17:15)
[2020-04-22] MEDS ORDERED: VANCOMYCIN 1 G PREMIX 200 ML IV SCH (17:30)
[2020-04-22 18:33] LABS: TOTAL IRON BINDING CAPACITY 107 ug/dL (250-450)
[2020-04-22 18:59] LABS: FOLIC ACID (FOLATE) SERUM > 20.00 ng/mL (>5.38); VITAMIN B12 SERUM 611 pg/mL (211-911)
[2020-04-22 19:23] LABS: FERRITIN 953 ng/mL (22-322)
[2020-04-22 20:00] VITALS: BP 103/39
[2020-04-22] MEDS ORDERED: PIPERACILLIN/TAZ 3.375G PREMIX 50 ML IV SCH (20:00)
[2020-04-22] MEDS ORDERED: DESMOPRESSIN ACETATE 4MCG/ML AMP IV SCH (21:00)
[2020-04-22 23:43] LABS: HEMATOCRIT 20.2 % (42.0-52.0); HEMOGLOBIN 5.1 g/dL (14.0-18.0)
[2020-04-22 23:49] LABS: CREATINE KINASE 20 IU/L (39-308)
[2020-04-22 23:50] LABS: CREATINE KINASE MB FRACTION < 1.0 ng/mL (0.5-3.6)
[2020-04-23] MEDS: PANTOPRAZOLE 80 MG in SODIUM CHLORIDE 0.9% 100 ML IV SCH (03:09)
[2020-04-23] MEDS: PIPERACILLIN/TAZOBACTAM 3.375 G in DEXT 5% WATER 100 ML IV SCH ×3 (04:00→21:00)
[2020-04-23] MEDS ORDERED: VANCOMYCIN 750 MG PREMIX 150 ML IV SCH (06:00)
[2020-04-23] MEDS: VANCOMYCIN 1 G PREMIX 200 ML IV SCH (06:00)
[2020-04-23 06:09] LABS: HEMATOCRIT. 27.9 % (42.0-52.0); HEMOGLOBIN. 8.3 g/dL (14.0-18.0); MEAN CORPUSCULAR HEMOGLOBIN 22.3 pg (28.0-32.0); MEAN CORPUSCULAR VOLUME 74.6 fL (80.0-94.0); PLATELET 670 x1000/uL (130-400); RED BLOOD CELL COUNT 3.75 mill/uL (4.7-6.1); RED CELL DISTRIBUTION WIDTH 24.6 % (11.6-14.6)
[2020-04-23 06:19] LABS: CHLORIDE 111 mEq/L (98-107)
[2020-04-23 06:28] LABS: CREATINE KINASE 40 IU/L (39-308)
[2020-04-23] MEDS: DEXT 5%/LACTATED RINGERS 1,000 ML IV SCH ×2 (07:12→21:00)
[2020-04-23 10:55] VITALS: BP 110/56
[2020-04-23 12:00] VITALS: BP 132/75
[2020-04-23 14:40] VITALS: BP 132/75
[2020-04-23] MEDS: DESMOPRESSIN ACETATE 4MCG/ML AMP IV SCH ×2 (15:16→23:16)
[2020-04-23 15:53] LABS: HEMATOCRIT 24.6 % (42.0-52.0); HEMOGLOBIN 7.4 g/dL (14.0-18.0)
[2020-04-23 16:00] VITALS: BP 128/79
[2020-04-23] MEDS ORDERED: DILTIAZEM HCL 5MG/ML 5ML VIAL IV NR (17:00)
[2020-04-23 18:49] LABS: PLATELET ESTIMATE INCREASED
[2020-04-23] MEDS ORDERED: KCL 20MEQ/100ML PREMIX 100 ML IV NR (20:30)
[2020-04-24 04:00] VITALS: BP 92/47
[2020-04-24] MEDS: PIPERACILLIN/TAZOBACTAM 3.375 G in DEXT 5% WATER 100 ML IV SCH ×3 (04:56→20:40)
[2020-04-24 08:00] VITALS: BP 112/53
[2020-04-24 09:02] LABS: CHLORIDE 120 mEq/L (98-107)
[2020-04-24] MEDS: SODIUM CHLORIDE 0.45% 1,000 ML IV SCH (10:29)
[2020-04-24] MEDS: DESMOPRESSIN ACETATE 4MCG/ML AMP IV SCH ×2 (10:29→20:40)
[2020-04-24] MEDS: VANCOMYCIN 1 G PREMIX 200 ML IV SCH (10:30)
[2020-04-24 12:00] VITALS: BP 133/68
[2020-04-24 16:00] VITALS: BP 141/74
[2020-04-24] MEDS ORDERED: METOPROLOL TARTRATE 5MG/5ML VIAL IV PRN (19:45)
[2020-04-24 20:00] VITALS: BP 106/60
[2020-04-24] MEDS ORDERED: METOPROLOL TARTRATE 25MG TABLET PO SCH (21:00)
[2020-04-25] VITALS (10 sets, daily range): BP systolic 99–128; BP diastolic 44–73
[2020-04-25] MEDS: SODIUM CHLORIDE 0.45% 1,000 ML IV SCH ×2 (01:16→17:22)
[2020-04-25] MEDS: PIPERACILLIN/TAZOBACTAM 3.375 G in DEXT 5% WATER 100 ML IV SCH ×3 (04:17→20:39)
[2020-04-25 05:23] LABS: BASOPHILS % 0.2 % (0.0-2.0); EOSINOPHILS % 0.2 % (0.0-5.0); HEMATOCRIT. 22.2 % (42.0-52.0); LYMPHOCYTES % 7.6 % (20.0-50.0); MEAN CORPUSCULAR HEMOGLOBIN 21.5 pg (28.0-32.0); MEAN CORPUSCULAR VOLUME 74.4 fL (80.0-94.0); MONOCYTES % 6.8 % (2.0-8.0); NEUTROPHILS % 85.2 % (40.0-76.0); PLATELET 562 x1000/uL (130-400); RED BLOOD CELL COUNT 2.98 mill/uL (4.7-6.1); RED CELL DISTRIBUTION WIDTH 25.5 % (11.6-14.6)
[2020-04-25 05:29] LABS: CHLORIDE 123 mEq/L (98-107)
[2020-04-25 06:35] LABS: HEMOGLOBIN. 6.4 g/dL (14.0-18.0)
[2020-04-25] MEDS ORDERED: POTASSIUM CHLORIDE 20MEQ TABLET SR PO SCH (09:00)
[2020-04-25] MEDS: DESMOPRESSIN ACETATE 4MCG/ML AMP IV SCH ×2 (09:02→20:39)
[2020-04-25] MEDS: VANCOMYCIN 1 G PREMIX 200 ML IV SCH (09:09)
[2020-04-25] MEDS: POTASSIUM CHLORIDE 20MEQ/PACKET GT SCH (10:01)
[2020-04-25 14:00] LABS: PLATELET ESTIMATE INCREASED
[2020-04-25 18:12] LABS: HEMATOCRIT 24.7 % (42.0-52.0); HEMOGLOBIN 7.5 g/dL (14.0-18.0)
[2020-04-25 18:52] LABS: INR 1.2; PROTHROMBIN TIME 12.3 sec (9.6-11.0)
[2020-04-25 19:07] LABS: FIBRINOGEN > 850 mg/dL (200-400)
[2020-04-26] VITALS: BP 121/51
[2020-04-26] MEDS: MORPHINE SULFATE 2 MG/ML CPJ (NOT FOR IM USE) IV PRN ×3 (03:17→16:48)
[2020-04-26] MEDS: PIPERACILLIN/TAZOBACTAM 3.375 G in DEXT 5% WATER 100 ML IV SCH ×3 (03:30→20:41)
[2020-04-26 04:00] VITALS: BP_SYST 110; BP_SYST 116; BP_DIAS 49; BP_DIAS 56
[2020-04-26] MEDS: VANCOMYCIN 1 G PREMIX 200 ML IV SCH (05:11)
[2020-04-26 08:00] VITALS: BP 106/52
[2020-04-26 08:13] LABS: CHLORIDE 125 mEq/L (98-107)
[2020-04-26] MEDS: POTASSIUM CHLORIDE 20MEQ/PACKET GT SCH (08:38)
[2020-04-26] MEDS: DESMOPRESSIN ACETATE 4MCG/ML AMP IV SCH ×2 (08:38→20:41)
[2020-04-26] MEDS: DEXTROSE 5% WATER 1,000 ML IV SCH (10:48)
[2020-04-26 12:00] VITALS: BP 107/46
[2020-04-26 20:00] VITALS: BP 127/61
[2020-04-26] MEDS ORDERED: VANCOMYCIN 1 G PREMIX 200 ML IV SCH (20:00)
[2020-04-27] VITALS: BP 132/73
[2020-04-27] MEDS: DEXTROSE 5% WATER 1,000 ML IV SCH (00:10)
[2020-04-27] MEDS: PIPERACILLIN/TAZOBACTAM 3.375 G in DEXT 5% WATER 100 ML IV SCH ×3 (03:18→21:05)
[2020-04-27] MEDS: MORPHINE SULFATE 2 MG/ML CPJ (NOT FOR IM USE) IV PRN ×3 (03:59→18:16)
[2020-04-27 04:00] VITALS: BP 125/73
[2020-04-27 06:57] LABS: BASOPHILS % 0.3 % (0.0-2.0); EOSINOPHILS % 2.9 % (0.0-5.0); HEMATOCRIT. 26.6 % (42.0-52.0); HEMOGLOBIN. 7.9 g/dL (14.0-18.0); LYMPHOCYTES % 9.9 % (20.0-50.0); MEAN CORPUSCULAR HEMOGLOBIN 22.5 pg (28.0-32.0); MONOCYTES % 6.2 % (2.0-8.0); NEUTROPHILS % 80.7 % (40.0-76.0); RED BLOOD CELL COUNT 3.51 mill/uL (4.7-6.1); RED CELL DISTRIBUTION WIDTH 25.6 % (11.6-14.6)
[2020-04-27 08:00] VITALS: BP 124/83
[2020-04-27 09:02] LABS: PLATELET 538 x1000/uL (130-400)
[2020-04-27] MEDS: DESMOPRESSIN ACETATE 4MCG/ML AMP IV SCH ×2 (09:18→21:41)
[2020-04-27] MEDS: POTASSIUM CHLORIDE 20MEQ/PACKET GT SCH (09:18)
[2020-04-27 11:58] VITALS: BP 112/56
[2020-04-27 12:53] LABS: CHLORIDE 120 mEq/L (98-107)
[2020-04-27 20:00] VITALS: BP 122/63
[2020-04-28] VITALS: BP 128/71
[2020-04-28] MEDS: MORPHINE SULFATE 2 MG/ML CPJ (NOT FOR IM USE) IV PRN ×3 (01:26→10:37)
[2020-04-28 04:00] VITALS: BP 123/75
[2020-04-28 07:04] LABS: CHLORIDE 122 mEq/L (98-107)
[2020-04-28 07:09] LABS: BASOPHILS % 0.4 % (0.0-2.0); EOSINOPHILS % 2.6 % (0.0-5.0); HEMATOCRIT. 25.1 % (42.0-52.0); HEMOGLOBIN. 7.6 g/dL (14.0-18.0); LYMPHOCYTES % 9.9 % (20.0-50.0); MEAN CORPUSCULAR HEMOGLOBIN 22.5 pg (28.0-32.0); MEAN CORPUSCULAR VOLUME 74.5 fL (80.0-94.0); MONOCYTES % 8.4 % (2.0-8.0); NEUTROPHILS % 78.7 % (40.0-76.0); PLATELET 575 x1000/uL (130-400); RED BLOOD CELL COUNT 3.37 mill/uL (4.7-6.1); RED CELL DISTRIBUTION WIDTH 26.2 % (11.6-14.6)
[2020-04-28 08:00] VITALS: BP 101/59
[2020-04-28] MEDS: POTASSIUM CHLORIDE 20MEQ/PACKET GT SCH (10:35)
[2020-04-28] MEDS: DESMOPRESSIN ACETATE 4MCG/ML AMP IV SCH (10:36)
[2020-04-28 12:00] VITALS: BP 112/61
[2020-04-28 13:36] VITALS: BP 112/61
[2020-04-28] MEDS ORDERED: EPOETIN ALFA 10000UNITS/ML VIAL SUBCUT NR (21:00)
== END 2020-04-28 14:25 | DRG 853 ==
LOC: ER 12:40 → MICUSO 16:31 → EDBEDREQ 16:34 → 7WST 04-23 07:22 → 8WST 04-24 04:42
PROVIDERS: ADMIT Internal Medicine; ATTEND Internal Medicine
PROC: 30233N1 Transfusion of Nonautologous Red Blood Cells into Peripheral Vein, Percutaneous Approach (ICD-10-PCS; principal; 2020-04-22)
PROC: 0QB10ZZ Excision of Sacrum, Open Approach (ICD-10-PCS; 2020-04-27)
PROC: 0KBP0ZZ Excision of Left Hip Muscle, Open Approach (ICD-10-PCS; 2020-04-27)
PROC: 0KBP0ZZ Excision of Left Hip Muscle, Open Approach (ICD-10-PCS; 2020-04-27)
PROC: 0KBN0ZZ Excision of Right Hip Muscle, Open Approach (ICD-10-PCS; 2020-04-27)
PROC: 0KBN0ZZ Excision of Right Hip Muscle, Open Approach (ICD-10-PCS; 2020-04-27)
DX: A41.9 Sepsis, unspecified organism (principal); L89.104 Pressure ulcer of unspecified part of back, stage 4; L89.154 Pressure ulcer of sacral region, stage 4; L89.224 Pressure ulcer of left hip, stage 4; L89.214 Pressure ulcer of right hip, stage 4; L89.894 Pressure ulcer of other site, stage 4; L89.324 Pressure ulcer of left buttock, stage 4; G92 Toxic encephalopathy; E43 Unspecified severe protein-calorie malnutrition; E87.0 Hyperosmolality and hypernatremia; I42.9 Cardiomyopathy, unspecified; D64.9 Anemia, unspecified; E87.6 Hypokalemia; F03.90 Unspecified dementia, unspecified severity, without behavioral disturbance, psychotic disturbance, mood disturbance, and anxiety; I11.0 Hypertensive heart disease with heart failure; I50.9 Heart failure, unspecified; J44.9 Chronic obstructive pulmonary disease, unspecified; R62.7 Adult failure to thrive; E83.52 Hypercalcemia; E11.9 Type 2 diabetes mellitus without complications; I48.0 Paroxysmal atrial fibrillation; I69.398 Other sequelae of cerebral infarction; I27.20 Pulmonary hypertension, unspecified; R13.10 Dysphagia, unspecified; K21.9 Gastro-esophageal reflux disease without esophagitis; E78.00 Pure hypercholesterolemia, unspecified; Z68.22 Body mass index [BMI] 22.0-22.9, adult; Z79.899 Other long term (current) drug therapy; Z03.818 Encounter for observation for suspected exposure to other biological agents ruled out; S91.302A Unspecified open wound, left foot, initial encounter; S91.002A Unspecified open wound, left ankle, initial encounter; D63.8 Anemia in other chronic diseases classified elsewhere; Z93.1 Gastrostomy status
CPT/HCPCS: 36415; 71045; 80048; 80053; 80202; 81003; 82040; 82270; 82550; 82553; 82607; 82728; 82746; 83540; 83550; 83605; 83735; 83880; 83970; 84100; 84134; 84145; 84484; 85014; 85018; 85025; 85049; 85384; 86140; 86850; 86900; 86920; 87635; 93005; 93970; 99285; C9113; J2270; J2543; J2597; J3370; J3480; J3490; J7030; J7050; J7060; J7070; P9016

== ENCOUNTER 2020-05-09 13:38 | Inpatient (IN) | payer MEDICARE, MEDICAID ==
[~2020-05-09] VITALS: Ht 167.6 cm; Wt 63.1 kg
[2020-05-09] MEDS ORDERED: ACETAMINOPHEN 650MG SUPP PR STA (13:41)
[2020-05-09] MEDS ORDERED: PIPERACILLIN/TAZ 3.375G PREMIX 50 ML IV ONE (13:45)
[2020-05-09] MEDS ORDERED: VANCOMYCIN 1 G PREMIX 200 ML IV ONE (13:45)
[2020-05-09 14:41] LABS: HEMATOCRIT. 25.3 % (42.0-52.0); HEMOGLOBIN. 7.8 g/dL (14.0-18.0); MEAN CORPUSCULAR HEMOGLOBIN 23.1 pg (28.0-32.0); MEAN CORPUSCULAR VOLUME 75.2 fL (80.0-94.0); MEAN PLATELET VOLUME 9.4 fl (7.4-10.4); PLATELET 464 x1000/uL (130-400); RED BLOOD CELL COUNT 3.37 mill/uL (4.7-6.1); RED CELL DISTRIBUTION WIDTH 26.6 % (11.6-14.6)
[2020-05-09 14:48] LABS: CHLORIDE 117 mEq/L (98-107)
[2020-05-09 15:03] LABS: CLARITY URINE CLOUDY (CLEAR); COLOR URINE YELLOW (YELLOW); KETONES URINE NEGATIVE (NEGATIVE); LEUKOCYTE ESTERASE URINE 3+ (NEGATIVE); NITRITE URINE NEGATIVE (NEGATIVE); OCCULT BLOOD URINE 3+ (NEGATIVE); PROTEIN URINE 1+ (NEGATIVE); SPECIFIC GRAVITY URINE 1.016 (1.005-1.030); UROBILINOGEN URINE 0.2 E.U./dL (0.2-1.0)
[2020-05-09 15:56] LABS: INR 1.1
[2020-05-09] MEDS ORDERED: SODIUM CHLORIDE 0.9% 1,000 ML IV ONE (16:15)
[2020-05-09 16:34] LABS: PLATELET ESTIMATE INCREASED
[2020-05-09] MEDS ORDERED: ACETAMINOPHEN 650MG SUPP PR ONE (18:00)
[2020-05-09] MEDS: FAMOTIDINE 20MG TABLET PO SCH (21:00)
[2020-05-09] MEDS ORDERED: CLONIDINE 0.1MG TABLET PO PRN (21:00)
[2020-05-09] MEDS ORDERED: NITROGLYCERIN 0.4MG TABLET SL SL PRN (21:00)
[2020-05-09] MEDS ORDERED: ACETAMINOPHEN 650MG/20.3ML UDC GT PRN (21:00)
[2020-05-09] MEDS ORDERED: ONDANSETRON HCL 4MG/2ML INJ IV PRN (21:00)
[2020-05-09] MEDS ORDERED: PIPERACILLIN/TAZ 3.375G PREMIX 50 ML IV SCH (21:00)
[2020-05-09] MEDS ORDERED: SODIUM CHLORIDE 0.9% 1000ML BAG (SEPSIS BOLUS) IV NR (21:00)
[2020-05-09] MEDS ORDERED: MAGNESIUM/ALUMINUM HYDROXIDE/SIMETHICONE 30ML UDC PO PRN (21:00)
[2020-05-09] MEDS: ASCORBIC ACID 500 MG TABLET PO SCH (21:00)
[2020-05-09] MEDS ORDERED: ZOLPIDEM TARTRATE 5MG TABLET PO PRN (21:00)
[2020-05-09] MEDS ORDERED: GUAIFENESIN 200MG/10ML SUGAR FREE UDC PO PRN (21:00)
[2020-05-09] MEDS ORDERED: DOCUSATE SODIUM 100MG CAPSULE PO PRN (21:00)
[2020-05-09] MEDS ORDERED: IPRATROPIUM/ALBUTEROL 0.5-3(2.5)MG/3ML NEB ORI PRN (21:00)
[2020-05-09] MEDS ORDERED: DEXTROSE 50% WATER 50ML SYRINGE IV PRN (21:30)
[2020-05-09] MEDS: INSULIN LISPRO 100 UNITS/ML SUBCUT SCH (21:30)
[2020-05-09] MEDS ORDERED: NOREPINEPHRINE 8 MG in DEXT 5% WATER 242 ML IV PRN (21:30)
[2020-05-09] MEDS ORDERED: SODIUM CHLORIDE 0.9% 1,000 ML IV SCH (21:45)
[2020-05-09] MEDS: PIPERACILLIN/TAZ 3.375G PREMIX 50 ML IV SCH (22:00)
[2020-05-09] MEDS: BLOOD SUGAR DIAGNOSTIC STRIP TEST SCH (22:03)
[2020-05-09] MEDS: DESMOPRESSIN ACETATE 4MCG/ML AMP IV SCH (23:34)
[2020-05-09 23:46] LABS: TOTAL IRON BINDING CAPACITY 80 ug/dL (250-450)
[2020-05-09 23:48] LABS: CREATINE KINASE 97 IU/L (39-308)
[2020-05-09 23:49] LABS: CREATINE KINASE MB FRACTION 3.1 ng/mL (0.5-3.6)
[2020-05-10] MEDS ORDERED: VANCOMYCIN 750 MG PREMIX 150 ML IV SCH
[2020-05-10 01:31] LABS: FOLIC ACID (FOLATE) SERUM >20 ng/mL ng/mL (>5.38)
[2020-05-10 01:42] LABS: VITAMIN B12 SERUM 1101 pg/mL (211-911)
[2020-05-10] MEDS: PIPERACILLIN/TAZ 3.375G PREMIX 50 ML IV SCH (06:20)
[2020-05-10] MEDS: BLOOD SUGAR DIAGNOSTIC STRIP TEST SCH ×4 (06:48→21:30)
[2020-05-10] MEDS: INSULIN LISPRO 100 UNITS/ML SUBCUT SCH ×4 (06:57→21:30)
[2020-05-10 08:47] LABS: CHLORIDE 125 mEq/L (98-107)
[2020-05-10 08:49] LABS: HEMATOCRIT. 26.3 % (42.0-52.0); HEMOGLOBIN. 7.6 g/dL (14.0-18.0); MEAN CORPUSCULAR HEMOGLOBIN 22.4 pg (28.0-32.0); MEAN CORPUSCULAR VOLUME 77.2 fL (80.0-94.0); PLATELET 507 x1000/uL (130-400); RED CELL DISTRIBUTION WIDTH 27.1 % (11.6-14.6)
[2020-05-10 08:54] LABS: PHOSPHORUS 3.3 mg/dL (2.5-4.9)
[2020-05-10 08:56] LABS: CREATINE KINASE 212 IU/L (39-308)
[2020-05-10] MEDS: ASPIRIN 325MG EC TABLET PO SCH (09:00)
[2020-05-10] MEDS ORDERED: ENOXAPARIN 30MG/0.3ML SYR SUBCUT SCH (09:00)
[2020-05-10 09:01] LABS: CREATINE KINASE MB FRACTION 8.4 ng/mL (0.5-3.6)
[2020-05-10] MEDS: ZINC SULFATE 220 MG ( 50 ) CAPSULE PO SCH (09:24)
[2020-05-10] MEDS: ASCORBIC ACID 500 MG TABLET PO SCH ×2 (09:24→22:10)
[2020-05-10] MEDS: DESMOPRESSIN ACETATE 4MCG/ML AMP IV SCH ×2 (10:36→23:29)
[2020-05-10] MEDS: SODIUM CHLORIDE 0.45% 1,000 ML IV SCH ×2 (10:42→18:49)
[2020-05-10] MEDS ORDERED: LIDOCAINE HCL 1% 20ML VIAL (Pyxis) INJ ONE (10:45)
[2020-05-10] MEDS ORDERED: MEROPENEM 1,000 MG in SODIUM CHLORIDE 0.9% 100 ML IV SCH (11:00)
[2020-05-10] MEDS: VANCOMYCIN 750 MG PREMIX 150 ML IV SCH (12:22)
[2020-05-10 12:47] LABS: PLATELET ESTIMATE INCREASED
[2020-05-10] MEDS: FAMOTIDINE 20MG TABLET PO SCH (22:10)
[2020-05-10] MEDS: TRAMADOL 50MG TABLET PO PRN (22:11)
[2020-05-10 23:13] VITALS: BP 113/58
[2020-05-10 23:30] VITALS: BP 113/58
[2020-05-10] MEDS: MEROPENEM 500MG in NORMAL SALINE 50ML IV SCH (23:30)
[2020-05-11] VITALS (12 sets, daily range): BP systolic 98–130; BP diastolic 52–71
[2020-05-11] MEDS: SODIUM CHLORIDE 0.45% 1,000 ML IV SCH ×3 (02:50→17:45)
[2020-05-11] MEDS: BLOOD SUGAR DIAGNOSTIC STRIP TEST SCH ×4 (06:25→21:45)
[2020-05-11 06:31] LABS: MEAN CORPUSCULAR HEMOGLOBIN 22.3 pg (28.0-32.0); MEAN CORPUSCULAR VOLUME 74.3 fL (80.0-94.0); MEAN PLATELET VOLUME 8.7 fl (7.4-10.4); PLATELET 480 x1000/uL (130-400); RED BLOOD CELL COUNT 2.98 mill/uL (4.7-6.1); RED CELL DISTRIBUTION WIDTH 26.1 % (11.6-14.6)
[2020-05-11 06:33] LABS: CHLORIDE 127 mEq/L (98-107)
[2020-05-11] MEDS: VANCOMYCIN 750 MG PREMIX 150 ML IV SCH (06:33)
[2020-05-11 06:41] LABS: HEMATOCRIT. 22.2 % (42.0-52.0); HEMOGLOBIN. 6.7 g/dL (14.0-18.0)
[2020-05-11 06:44] LABS: PHOSPHORUS 2.7 mg/dL (2.5-4.9)
[2020-05-11 06:47] LABS: VANCOMYCIN TROUGH 21.6 ug/mL (5.0-10.0)
[2020-05-11] MEDS: INSULIN LISPRO 100 UNITS/ML SUBCUT SCH ×4 (07:50→21:00)
[2020-05-11] MEDS ORDERED: POTASSIUM CHLORIDE 20MEQ/PACKET PO SCH (08:00)
[2020-05-11] MEDS: ASPIRIN 325MG EC TABLET PO SCH (09:00)
[2020-05-11] MEDS ORDERED: KCL 20MEQ/100ML PREMIX 100 ML IV SCH (09:00)
[2020-05-11] MEDS ORDERED: ENOXAPARIN 40MG/0.4ML SYR SUBCUT SCH (09:00)
[2020-05-11] MEDS: MEROPENEM 500MG in NORMAL SALINE 50ML IV SCH ×2 (10:06→21:55)
[2020-05-11] MEDS: ZINC SULFATE 220 MG ( 50 ) CAPSULE PO SCH (10:07)
[2020-05-11] MEDS: ASCORBIC ACID 500 MG TABLET PO SCH ×2 (10:07→21:51)
[2020-05-11] MEDS: DESMOPRESSIN ACETATE 4MCG/ML AMP IV SCH (10:09)
[2020-05-11 11:20] LABS: PLATELET ESTIMATE INCREASED
[2020-05-11] MEDS ORDERED: ADENOSINE 3 MG/ML 2ML VIAL IV NR ×2 (17:00→17:15)
[2020-05-11] MEDS ORDERED: ADENOSINE 3 MG/ML 2ML VIAL IV ONE (17:15)
[2020-05-11] MEDS ORDERED: ALBUMIN HUMAN 25GM/100ML (25%) IV NR (17:30)
[2020-05-11] MEDS ORDERED: METOPROLOL TARTRATE 5MG/5ML VIAL IV NR (17:30)
[2020-05-11] MEDS ORDERED: AMIODARONE HCL 150 MG in DEXT 5% WATER 100 ML IV NR (18:00)
[2020-05-11] MEDS ORDERED: AMIODARONE HCL 900 MG in DEXT 5% WATER 482 ML IV SCH (18:30)
[2020-05-11] MEDS: ACETAMINOPHEN 650MG/20.3ML UDC GT PRN (19:44)
[2020-05-11] MEDS: FAMOTIDINE 20MG TABLET PO SCH (21:51)
[2020-05-12] VITALS (12 sets, daily range): BP systolic 95–136; BP diastolic 45–68
[2020-05-12] MEDS: DESMOPRESSIN ACETATE 4MCG/ML AMP IV SCH ×3 (00:05→20:34)
[2020-05-12] MEDS: SODIUM CHLORIDE 0.45% 1,000 ML IV SCH ×3 (02:15→18:47)
[2020-05-12] MEDS: BLOOD SUGAR DIAGNOSTIC STRIP TEST SCH ×4 (06:42→21:18)
[2020-05-12] MEDS: INSULIN LISPRO 100 UNITS/ML SUBCUT SCH ×4 (06:43→21:00)
[2020-05-12 07:42] LABS: HEMATOCRIT. 24.2 % (42.0-52.0); HEMOGLOBIN. 7.2 g/dL (14.0-18.0); MEAN CORPUSCULAR VOLUME 77.2 fL (80.0-94.0); MEAN PLATELET VOLUME 8.9 fl (7.4-10.4); PLATELET 501 x1000/uL (130-400); RED BLOOD CELL COUNT 3.13 mill/uL (4.7-6.1); RED CELL DISTRIBUTION WIDTH 26.1 % (11.6-14.6)
[2020-05-12 08:12] LABS: CHLORIDE 127 mEq/L (98-107)
[2020-05-12 08:22] LABS: PHOSPHORUS 2.4 mg/dL (2.5-4.9)
[2020-05-12] MEDS: MEROPENEM 500MG in NORMAL SALINE 50ML IV SCH ×2 (08:37→21:06)
[2020-05-12] MEDS: ASCORBIC ACID 500 MG TABLET PO SCH ×2 (08:37→20:36)
[2020-05-12] MEDS: ZINC SULFATE 220 MG ( 50 ) CAPSULE PO SCH (08:37)
[2020-05-12] MEDS ORDERED: ENOXAPARIN 30MG/0.3ML SYR SUBCUT SCH (09:00)
[2020-05-12] MEDS ORDERED: ASPIRIN 81MG TABLET NG SCH (09:00)
[2020-05-12] MEDS: VANCOMYCIN 1 G PREMIX 200 ML IV SCH (09:22)
[2020-05-12 19:44] LABS: PLATELET ESTIMATE INCREASED
[2020-05-12] MEDS: FAMOTIDINE 20MG TABLET PO SCH (20:36)
[2020-05-13] VITALS (12 sets, daily range): BP systolic 118–147; BP diastolic 48–98
[2020-05-13] MEDS: SODIUM CHLORIDE 0.45% 1,000 ML IV SCH ×3 (02:41→17:45)
[2020-05-13] MEDS: BLOOD SUGAR DIAGNOSTIC STRIP TEST SCH ×4 (06:45→21:39)
[2020-05-13] MEDS: INSULIN LISPRO 100 UNITS/ML SUBCUT SCH ×4 (07:20→21:00)
[2020-05-13] MEDS: ZINC SULFATE 220 MG ( 50 ) CAPSULE PO SCH (09:43)
[2020-05-13] MEDS: ASCORBIC ACID 500 MG TABLET PO SCH ×2 (09:43→21:15)
[2020-05-13] MEDS: AMIODARONE HCL 200 MG TABLET PO SCH (09:43)
[2020-05-13] MEDS: VANCOMYCIN 1 G PREMIX 200 ML IV SCH (09:43)
[2020-05-13] MEDS: MEROPENEM 500MG in NORMAL SALINE 50ML IV SCH ×2 (09:43→21:34)
[2020-05-13] MEDS: ASPIRIN 325MG TABLET NG SCH (09:43)
[2020-05-13] MEDS ORDERED: DESMOPRESSIN ACETATE 4MCG/ML AMP IV SCH (11:00)
[2020-05-13] MEDS ORDERED: DIATR MEGLU/DIATRIZOATE SOLN 30ML PO SCH (14:45)
[2020-05-13] MEDS: FAMOTIDINE 20MG TABLET PO SCH (21:15)
[2020-05-14] VITALS (17 sets, daily range): BP systolic 103–148; BP diastolic 53–80
[2020-05-14] MEDS: DESMOPRESSIN ACETATE 4MCG/ML AMP IV SCH ×3 (00:18→22:01)
[2020-05-14] MEDS: SODIUM CHLORIDE 0.45% 1,000 ML IV SCH ×4 (03:27→23:56)
[2020-05-14] MEDS: INSULIN LISPRO 100 UNITS/ML SUBCUT SCH ×4 (07:20→21:00)
[2020-05-14 07:40] LABS: HEMATOCRIT. 21.2 % (42.0-52.0); MEAN CORPUSCULAR HEMOGLOBIN 22.6 pg (28.0-32.0); MEAN CORPUSCULAR VOLUME 74.5 fL (80.0-94.0); MEAN PLATELET VOLUME 8.5 fl (7.4-10.4); PLATELET 500 x1000/uL (130-400); RED BLOOD CELL COUNT 2.84 mill/uL (4.7-6.1)
[2020-05-14] MEDS: BLOOD SUGAR DIAGNOSTIC STRIP TEST SCH ×4 (07:49→21:00)
[2020-05-14 08:04] LABS: CHLORIDE 120 mEq/L (98-107)
[2020-05-14 08:14] LABS: HEMOGLOBIN. 6.4 g/dL (14.0-18.0)
[2020-05-14] MEDS: MEROPENEM 500MG in NORMAL SALINE 50ML IV SCH ×2 (09:51→22:03)
[2020-05-14] MEDS: AMIODARONE HCL 200 MG TABLET PO SCH (09:51)
[2020-05-14] MEDS: ZINC SULFATE 220 MG ( 50 ) CAPSULE PO SCH (09:52)
[2020-05-14] MEDS: METOPROLOL TARTRATE 25MG TABLET PO SCH ×2 (09:52→22:00)
[2020-05-14] MEDS: ASCORBIC ACID 500 MG TABLET PO SCH ×2 (09:52→21:58)
[2020-05-14] MEDS: ASPIRIN 325MG TABLET NG SCH (09:52)
[2020-05-14] MEDS: ACETAMINOPHEN 650MG/20.3ML UDC GT PRN (11:55)
[2020-05-14] MEDS: METOCLOPRAMIDE HCL 10MG/2ML VIAL IV SCH ×3 (14:51→23:50)
[2020-05-14] MEDS: TRAMADOL 50MG TABLET PO PRN (17:47)
[2020-05-14] MEDS: FAMOTIDINE 20MG TABLET PO SCH (21:58)
[2020-05-15] VITALS (12 sets, daily range): BP systolic 104–149; BP diastolic 48–80
[2020-05-15] MEDS: BLOOD SUGAR DIAGNOSTIC STRIP TEST SCH ×4 (06:29→21:27)
[2020-05-15] MEDS: METOCLOPRAMIDE HCL 10MG/2ML VIAL IV SCH ×4 (06:33→23:33)
[2020-05-15] MEDS: INSULIN LISPRO 100 UNITS/ML SUBCUT SCH ×4 (07:20→21:00)
[2020-05-15 09:08] LABS: PLATELET ESTIMATE INCREASED
[2020-05-15] MEDS: ACETAMINOPHEN 650MG/20.3ML UDC GT PRN ×2 (09:33→17:31)
[2020-05-15] MEDS: AMIODARONE HCL 200 MG TABLET PO SCH (09:33)
[2020-05-15] MEDS: ZINC SULFATE 220 MG ( 50 ) CAPSULE PO SCH (09:33)
[2020-05-15] MEDS: ASCORBIC ACID 500 MG TABLET PO SCH ×2 (09:33→21:26)
[2020-05-15] MEDS: SODIUM CHLORIDE 0.45% 1,000 ML IV SCH ×2 (09:33→17:31)
[2020-05-15] MEDS: DESMOPRESSIN ACETATE 4MCG/ML AMP IV SCH ×2 (09:34→21:26)
[2020-05-15 11:43] LABS: HEMATOCRIT 26.6 % (42.0-52.0); HEMOGLOBIN 8.2 g/dL (14.0-18.0)
[2020-05-15 11:55] LABS: INR 1.2; PROTHROMBIN TIME 12.3 sec (9.6-11.0)
[2020-05-15] MEDS: METOPROLOL TARTRATE 25MG TABLET PO SCH ×2 (11:57→21:27)
[2020-05-15] MEDS: MEROPENEM 1,000 MG in SODIUM CHLORIDE 0.9% 100 ML IV SCH ×2 (11:57→18:41)
[2020-05-15] MEDS: FAMOTIDINE 20MG TABLET PO SCH (21:26)
[2020-05-16] VITALS (12 sets, daily range): BP systolic 109–132; BP diastolic 43–91
[2020-05-16] MEDS: SODIUM CHLORIDE 0.45% 1,000 ML IV SCH ×4 (01:57→20:35)
[2020-05-16] MEDS: ACETAMINOPHEN 650MG/20.3ML UDC GT PRN ×3 (03:09→20:24)
[2020-05-16] MEDS: MEROPENEM 1,000 MG in SODIUM CHLORIDE 0.9% 100 ML IV SCH ×3 (03:09→20:10)
[2020-05-16] MEDS: METOCLOPRAMIDE HCL 10MG/2ML VIAL IV SCH ×3 (06:31→18:25)
[2020-05-16] MEDS: BLOOD SUGAR DIAGNOSTIC STRIP TEST SCH ×4 (06:31→20:24)
[2020-05-16] MEDS: INSULIN LISPRO 100 UNITS/ML SUBCUT SCH ×4 (06:32→20:24)
[2020-05-16 07:11] LABS: HEMATOCRIT. 24.6 % (42.0-52.0); HEMOGLOBIN. 7.5 g/dL (14.0-18.0); MEAN CORPUSCULAR HEMOGLOBIN 23.2 pg (28.0-32.0); MEAN CORPUSCULAR VOLUME 75.5 fL (80.0-94.0); MEAN PLATELET VOLUME 8.4 fl (7.4-10.4); PLATELET 444 x1000/uL (130-400); RED BLOOD CELL COUNT 3.26 mill/uL (4.7-6.1); RED CELL DISTRIBUTION WIDTH 25.8 % (11.6-14.6)
[2020-05-16] MEDS: AMIODARONE HCL 200 MG TABLET PO SCH (07:55)
[2020-05-16] MEDS: ASCORBIC ACID 500 MG TABLET PO SCH ×2 (07:55→20:23)
[2020-05-16] MEDS: METOPROLOL TARTRATE 25MG TABLET PO SCH ×2 (07:55→20:24)
[2020-05-16] MEDS: DESMOPRESSIN ACETATE 4MCG/ML AMP IV SCH ×2 (07:56→20:23)
[2020-05-16] MEDS: ZINC SULFATE 220 MG ( 50 ) CAPSULE PO SCH (07:56)
[2020-05-16 16:10] LABS: PLATELET ESTIMATE INCREASED
[2020-05-16] MEDS: FAMOTIDINE 20MG TABLET PO SCH (20:23)
[2020-05-17] VITALS (10 sets, daily range): BP systolic 110–137; BP diastolic 53–78
[2020-05-17] MEDS: METOCLOPRAMIDE HCL 10MG/2ML VIAL IV SCH ×3 (00:18→11:27)
[2020-05-17] MEDS: MEROPENEM 1,000 MG in SODIUM CHLORIDE 0.9% 100 ML IV SCH ×2 (04:13→11:26)
[2020-05-17] MEDS: SODIUM CHLORIDE 0.45% 1,000 ML IV SCH (04:14)
[2020-05-17] MEDS: BLOOD SUGAR DIAGNOSTIC STRIP TEST SCH ×2 (06:16→11:44)
[2020-05-17 07:10] LABS: HEMATOCRIT. 23.6 % (42.0-52.0); HEMOGLOBIN. 7.4 g/dL (14.0-18.0); MEAN CORPUSCULAR HEMOGLOBIN 23.5 pg (28.0-32.0); MEAN CORPUSCULAR VOLUME 74.8 fL (80.0-94.0); MEAN PLATELET VOLUME 8.3 fl (7.4-10.4); PLATELET 517 x1000/uL (130-400); RED BLOOD CELL COUNT 3.15 mill/uL (4.7-6.1); RED CELL DISTRIBUTION WIDTH 25.8 % (11.6-14.6)
[2020-05-17] MEDS: INSULIN LISPRO 100 UNITS/ML SUBCUT SCH ×2 (07:20→11:44)
[2020-05-17] MEDS: ASCORBIC ACID 500 MG TABLET PO SCH (08:53)
[2020-05-17] MEDS: AMIODARONE HCL 200 MG TABLET PO SCH (08:53)
[2020-05-17] MEDS: DESMOPRESSIN ACETATE 4MCG/ML AMP IV SCH (08:53)
[2020-05-17] MEDS: METOPROLOL TARTRATE 25MG TABLET PO SCH (08:54)
[2020-05-17] MEDS: ZINC SULFATE 220 MG ( 50 ) CAPSULE PO SCH (08:54)
[2020-05-17 18:02] LABS: PLATELET ESTIMATE INCREASED
== END 2020-05-17 18:20 | DRG 871 ==
LOC: ER 13:38 → EDBEDREQ 18:06 → EDBEDREQSVC 18:15 → MICUSO 22:13 → 6WST 05-10 23:02 → 3WST 05-11 20:30
PROVIDERS: ADMIT Internal Medicine; ATTEND Internal Medicine
PROC: 02HV33Z Insertion of Infusion Device into Superior Vena Cava, Percutaneous Approach (ICD-10-PCS; principal; 2020-05-10)
PROC: B548ZZA Ultrasonography of Superior Vena Cava, Guidance (ICD-10-PCS; 2020-05-10)
PROC: 30233N1 Transfusion of Nonautologous Red Blood Cells into Peripheral Vein, Percutaneous Approach (ICD-10-PCS; 2020-05-11)
DX: A41.51 Sepsis due to Escherichia coli [E. coli] (principal); L89.154 Pressure ulcer of sacral region, stage 4; L89.324 Pressure ulcer of left buttock, stage 4; E43 Unspecified severe protein-calorie malnutrition; J69.0 Pneumonitis due to inhalation of food and vomit; N17.0 Acute kidney failure with tubular necrosis; R65.21 Severe sepsis with septic shock; G92 Toxic encephalopathy; N39.0 Urinary tract infection, site not specified; I42.9 Cardiomyopathy, unspecified; E23.2 Diabetes insipidus; I47.1 Supraventricular tachycardia; Z16.12 Extended spectrum beta lactamase (ESBL) resistance; D63.8 Anemia in other chronic diseases classified elsewhere; E83.52 Hypercalcemia; F03.90 Unspecified dementia, unspecified severity, without behavioral disturbance, psychotic disturbance, mood disturbance, and anxiety; I50.9 Heart failure, unspecified; J44.9 Chronic obstructive pulmonary disease, unspecified; I11.0 Hypertensive heart disease with heart failure; R13.10 Dysphagia, unspecified; E11.51 Type 2 diabetes mellitus with diabetic peripheral angiopathy without gangrene; K21.9 Gastro-esophageal reflux disease without esophagitis; L89.100 Pressure ulcer of unspecified part of back, unstageable; R74.0 Nonspecific elevation of levels of transaminase and lactic acid dehydrogenase [LDH]; Z93.1 Gastrostomy status; Z86.73 Personal history of transient ischemic attack (TIA), and cerebral infarction without residual deficits; Z79.899 Other long term (current) drug therapy; Z68.22 Body mass index [BMI] 22.0-22.9, adult; Z03.818 Encounter for observation for suspected exposure to other biological agents ruled out; B96.4 Proteus (mirabilis) (morganii) as the cause of diseases classified elsewhere
CPT/HCPCS: 36415; 71045; 74176; 76937; 80048; 80053; 80202; 81003; 82270; 82550; 82553; 82607; 82746; 82962; 83036; 83540; 83550; 83605; 83735; 83970; 84100; 84134; 84145; 84484; 85014; 85018; 85025; 85049; 85384; 85651; 86140; 86850; 86900; 86920; 87077; 87186; 87635; 93005; 93923; 93970; 96365; 99291; C1725; J0153; J0282; J1650; J2185; J2543; J2597; J2765; J3370; J3480; J3490; J7030; J7050; J7060; P9016; P9047; Q9963

== ENCOUNTER 2020-07-22 18:28 | Inpatient (IN) | payer MEDICARE, MEDICAID ==
[~2020-07-22] VITALS: Ht 170.2 cm; Wt 57.2 kg
[~2020-07-22 18:28] MED LIST changes: -OMEP20TA2 MT
[2020-07-22] MEDS ORDERED: SODIUM CHLORIDE 0.9% 1000ML BAG (SEPSIS BOLUS) IV ONE (19:30)
[2020-07-22 19:43] LABS: MEAN CORPUSCULAR HEMOGLOBIN 26.3 pg (28.0-32.0); MEAN PLATELET VOLUME 8.4 fl (7.4-10.4); PLATELET 622 x1000/uL (130-400); RED BLOOD CELL COUNT 1.88 mill/uL (4.7-6.1); RED CELL DISTRIBUTION WIDTH 20.2 % (11.6-14.6)
[2020-07-22 19:44] LABS: CHLORIDE 102 mEq/L (98-107)
[2020-07-22 19:49] LABS: INR 1.2; PROTHROMBIN TIME 12.6 sec (9.6-11.0)
[2020-07-22 19:58] LABS: HEMATOCRIT. 16.2 % (42.0-52.0)
[2020-07-22 20:30] LABS: PLATELET ESTIMATE INCREASED
[2020-07-22] MEDS ORDERED: VANCOMYCIN 1 G PREMIX 200 ML IV ONE (20:45)
[2020-07-22] MEDS ORDERED: SODIUM CHLORIDE 0.9% 1,000 ML IV ONE (20:45)
[2020-07-22] MEDS ORDERED: PIPERACILLIN/TAZ 3.375G PREMIX 50 ML IV ONE (20:45)
[2020-07-22] MEDS ORDERED: ALBUMIN HUMAN 25GM/100ML (25%) IV NR (21:00)
[2020-07-22] MEDS ORDERED: MEROPENEM 1,000 MG in SODIUM CHLORIDE 0.9% 100 ML IV SCH (21:15)
[2020-07-22] MEDS ORDERED: DOCUSATE SODIUM 100MG CAPSULE PO PRN (21:15)
[2020-07-22] MEDS ORDERED: CLONIDINE 0.1MG TABLET PO PRN (21:15)
[2020-07-22] MEDS ORDERED: ONDANSETRON HCL 4MG/2ML INJ IV PRN (21:15)
[2020-07-22] MEDS ORDERED: ACETAMINOPHEN 650MG/20.3ML UDC GT PRN ×2 (21:15)
[2020-07-22] MEDS ORDERED: MAGNESIUM/ALUMINUM HYDROXIDE/SIMETHICONE 30ML UDC PO PRN (21:15)
[2020-07-22 21:22] LABS: CLARITY URINE CLOUDY (CLEAR); COLOR URINE YELLOW (YELLOW); KETONES URINE NEGATIVE (NEGATIVE); LEUKOCYTE ESTERASE URINE 3+ (NEGATIVE); NITRITE URINE NEGATIVE (NEGATIVE); OCCULT BLOOD URINE 2+ (NEGATIVE); PH URINE 6.5 (4.5-8.0); PROTEIN URINE 1+ (NEGATIVE); SPECIFIC GRAVITY URINE 1.014 (1.005-1.030); UROBILINOGEN URINE 0.2 E.U./dL (0.2-1.0)
[2020-07-22] MEDS ORDERED: SODIUM POLYSTYRENE SULFONATE 15 G/60 ML BOT PO NR ×2 (21:30→23:00)
[2020-07-22] MEDS ORDERED: MEROPENEM 500MG in NORMAL SALINE 50ML IV SCH (22:00)
[2020-07-22 23:59] LABS: CREATINE KINASE MB FRACTION 22.1 ng/mL (0.5-3.6)
[2020-07-23] VITALS (27 sets, daily range): BP systolic 82–111; BP diastolic 33–63
[2020-07-23 00:05] LABS: TOTAL IRON BINDING CAPACITY 81 ug/dL (250-450)
[2020-07-23 01:20] LABS: FOLIC ACID (FOLATE) SERUM 11.6 ng/mL (>5.38)
[2020-07-23 05:40] LABS: CHLORIDE 114 mEq/L (98-107)
[2020-07-23 05:55] LABS: PHOSPHORUS 3.6 mg/dL (2.5-4.9)
[2020-07-23 05:57] LABS: CREATINE KINASE 333 IU/L (39-308)
[2020-07-23 05:59] LABS: CREATINE KINASE MB FRACTION 16.9 ng/mL (0.5-3.6)
[2020-07-23 06:01] LABS: MEAN CORPUSCULAR HEMOGLOBIN 26.3 pg (28.0-32.0); MEAN CORPUSCULAR VOLUME 85.3 fL (80.0-94.0); MEAN PLATELET VOLUME 8.4 fl (7.4-10.4); PLATELET 577 x1000/uL (130-400); RED BLOOD CELL COUNT 2.34 mill/uL (4.7-6.1); RED CELL DISTRIBUTION WIDTH 17.9 % (11.6-14.6)
[2020-07-23 06:31] LABS: HEMATOCRIT. 19.9 % (42.0-52.0); HEMOGLOBIN. 6.2 g/dL (14.0-18.0)
[2020-07-23] MEDS: BLOOD SUGAR DIAGNOSTIC STRIP TEST SCH ×4 (07:30→21:00)
[2020-07-23] MEDS: INSULIN LISPRO 100 UNITS/ML SUBCUT SCH ×4 (08:00→21:00)
[2020-07-23] MEDS: AMIODARONE HCL 200 MG TABLET PO SCH (10:02)
[2020-07-23] MEDS: MEROPENEM 500 MG in SODIUM CHLORIDE 0.9% 50 ML IV SCH ×2 (11:02→18:35)
[2020-07-23] MEDS: DEXTROSE 50% WATER 50ML SYRINGE IV PRN (12:14)
[2020-07-23 13:16] LABS: PLATELET ESTIMATE INCREASED
[2020-07-23 21:00] LABS: HEMATOCRIT 33.7 % (42.0-52.0); HEMOGLOBIN 10.9 g/dL (14.0-18.0)
[2020-07-23 21:14] LABS: INR 1.1
[2020-07-23 21:27] LABS: FIBRINOGEN > 900 mg/dL (200-400)
[2020-07-23] MEDS ORDERED: VANCOMYCIN 750 MG PREMIX 150 ML IV SCH (21:45)
[2020-07-23] MEDS ORDERED: VANCOMYCIN 1 G PREMIX 200 ML IV SCH (22:00)
[2020-07-24] VITALS (12 sets, daily range): BP systolic 52–127; BP diastolic 44–78
[2020-07-24] MEDS: GUAIFENESIN 200MG/10ML SUGAR FREE UDC PO PRN (00:06)
[2020-07-24] MEDS: MEROPENEM 500 MG in SODIUM CHLORIDE 0.9% 50 ML IV SCH ×3 (02:36→18:11)
[2020-07-24] MEDS: INSULIN LISPRO 100 UNITS/ML SUBCUT SCH ×4 (08:00→21:38)
[2020-07-24] MEDS: BLOOD SUGAR DIAGNOSTIC STRIP TEST SCH ×4 (08:09→21:00)
[2020-07-24] MEDS: AMIODARONE HCL 200 MG TABLET PO SCH (09:16)
[2020-07-24 09:55] LABS: HEMATOCRIT. 35.4 % (42.0-52.0); HEMOGLOBIN. 11.4 g/dL (14.0-18.0); MEAN CORPUSCULAR HEMOGLOBIN 27.6 pg (28.0-32.0); MEAN CORPUSCULAR VOLUME 85.6 fL (80.0-94.0); MEAN PLATELET VOLUME 8.4 fl (7.4-10.4); PLATELET 681 x1000/uL (130-400); RED BLOOD CELL COUNT 4.14 mill/uL (4.7-6.1); RED CELL DISTRIBUTION WIDTH 16.6 % (11.6-14.6)
[2020-07-24 09:57] LABS: CHLORIDE 123 mEq/L (98-107)
[2020-07-24] MEDS ORDERED: TRAMADOL 50MG TABLET PO PRN (10:00)
[2020-07-24 10:03] LABS: PHOSPHORUS 2.5 mg/dL (2.5-4.9)
[2020-07-24] MEDS: ZINC SULFATE 220 MG ( 50 ) CAPSULE PO SCH (10:46)
[2020-07-24] MEDS: ASCORBIC ACID 500 MG TABLET PO SCH (10:46)
[2020-07-24 14:13] LABS: PLATELET ESTIMATE INCREASED
[2020-07-24] MEDS ORDERED: VANCOMYCIN 1 G PREMIX 200 ML IV SCH (18:00)
[2020-07-24] MEDS: DEXT 5%/0.45% NACL 1000ML 1,000 ML IV SCH (18:12)
[2020-07-24] MEDS: MORPHINE SULFATE 2 MG/ML CPJ (NOT FOR IM USE) IV PRN (21:25)
[2020-07-25] VITALS (12 sets, daily range): BP systolic 86–141; BP diastolic 32–86
[2020-07-25] MEDS: MEROPENEM 500 MG in SODIUM CHLORIDE 0.9% 50 ML IV SCH ×3 (01:06→17:59)
[2020-07-25] MEDS: MORPHINE SULFATE 2 MG/ML CPJ (NOT FOR IM USE) IV PRN ×4 (03:55→22:20)
[2020-07-25] MEDS: IPRATROPIUM/ALBUTEROL 0.5-3(2.5)MG/3ML NEB NEB PRN (05:04)
[2020-07-25] MEDS: DEXT 5%/0.45% NACL 1000ML 1,000 ML IV SCH (06:26)
[2020-07-25] MEDS: BLOOD SUGAR DIAGNOSTIC STRIP TEST SCH ×3 (07:30→16:35)
[2020-07-25 07:58] LABS: CHLORIDE 127 mEq/L (98-107)
[2020-07-25] MEDS: INSULIN LISPRO 100 UNITS/ML SUBCUT SCH ×3 (08:00→17:19)
[2020-07-25] MEDS: ZINC SULFATE 220 MG ( 50 ) CAPSULE PO SCH (08:35)
[2020-07-25] MEDS: ASCORBIC ACID 500 MG TABLET PO SCH (08:35)
[2020-07-25] MEDS: AMIODARONE HCL 200 MG TABLET PO SCH (08:35)
[2020-07-25] MEDS ORDERED: POTASSIUM CHLORIDE 20MEQ TABLET SR PO NR (08:45)
[2020-07-25] MEDS ORDERED: KCL 20MEQ/100ML PREMIX 100 ML IV NR (12:30)
[2020-07-25] MEDS: IRON SUCROSE COMPLEX 100 MG/5 ML ML IV SCH (12:54)
[2020-07-25] MEDS ORDERED: POTASSIUM CHLORIDE INJ 40 MEQ in DEXT 5% WATER 250 ML IV ONE (14:00)
[2020-07-25] MEDS: VANCOMYCIN 1 G PREMIX 200 ML IV SCH (18:00)
[2020-07-26] VITALS (13 sets, daily range): BP systolic 116–146; BP diastolic 59–93
[2020-07-26] MEDS: DEXT 5%/0.45% NACL 1000ML 1,000 ML IV SCH (00:12)
[2020-07-26] MEDS: MEROPENEM 500 MG in SODIUM CHLORIDE 0.9% 50 ML IV SCH ×3 (01:04→17:03)
[2020-07-26] MEDS: INSULIN LISPRO 100 UNITS/ML SUBCUT SCH ×4 (06:00→18:00)
[2020-07-26] MEDS: BLOOD SUGAR DIAGNOSTIC STRIP TEST SCH ×4 (06:00→19:00)
[2020-07-26 06:09] LABS: HEMATOCRIT. 38.9 % (42.0-52.0); HEMOGLOBIN. 12.4 g/dL (14.0-18.0); MEAN CORPUSCULAR HEMOGLOBIN 27.7 pg (28.0-32.0); MEAN PLATELET VOLUME 8.2 fl (7.4-10.4); PLATELET 631 x1000/uL (130-400); RED BLOOD CELL COUNT 4.47 mill/uL (4.7-6.1); RED CELL DISTRIBUTION WIDTH 17.6 % (11.6-14.6)
[2020-07-26 06:17] LABS: CHLORIDE 130 mEq/L (98-107)
[2020-07-26 06:28] LABS: CREATINE KINASE 77 IU/L (39-308)
[2020-07-26] MEDS: AMIODARONE HCL 200 MG TABLET PO SCH (09:00)
[2020-07-26] MEDS: ASCORBIC ACID 500 MG TABLET PO SCH (09:00)
[2020-07-26] MEDS: ZINC SULFATE 220 MG ( 50 ) CAPSULE PO SCH (09:00)
[2020-07-26] MEDS: IRON SUCROSE COMPLEX 100 MG/5 ML ML IV SCH (09:50)
[2020-07-26] MEDS: DEXTROSE 5% WATER 1,000 ML IV SCH ×2 (09:50→21:10)
[2020-07-26 12:44] LABS: PLATELET ESTIMATE INCREASED
[2020-07-26] MEDS: MORPHINE SULFATE 2 MG/ML CPJ (NOT FOR IM USE) IV PRN (16:57)
[2020-07-26] MEDS: VANCOMYCIN 1 G PREMIX 200 ML IV SCH (17:39)
[2020-07-26] MEDS ORDERED: FENTANYL CITRATE/PF 50MCG/ML 2ML VIAL ONE (17:58)
[2020-07-26] MEDS ORDERED: MIDAZOLAM HCL 5 MG/5 ML VIAL ONE (17:58)
[2020-07-26] MEDS ORDERED: MIDAZOLAM HCL 5 MG/5 ML VIAL IV PRN (17:58)
[2020-07-26] MEDS: DEXTROSE 50% WATER 50ML SYRINGE IV PRN (19:06)
[2020-07-27] VITALS (12 sets, daily range): BP systolic 119–154; BP diastolic 61–109
[2020-07-27] MEDS: BLOOD SUGAR DIAGNOSTIC STRIP TEST SCH ×4 (00:17→17:05)
[2020-07-27] MEDS: MEROPENEM 500 MG in SODIUM CHLORIDE 0.9% 50 ML IV SCH ×3 (02:14→17:31)
[2020-07-27] MEDS: MORPHINE SULFATE 2 MG/ML CPJ (NOT FOR IM USE) IV PRN ×4 (05:50→22:02)
[2020-07-27] MEDS: INSULIN LISPRO 100 UNITS/ML SUBCUT SCH ×4 (06:00→17:31)
[2020-07-27] MEDS: GUAIFENESIN 200MG/10ML SUGAR FREE UDC PO PRN ×3 (06:28→22:02)
[2020-07-27 07:00] LABS: CHLORIDE 128 mEq/L (98-107)
[2020-07-27 07:08] LABS: HEMATOCRIT. 37.6 % (42.0-52.0); HEMOGLOBIN. 11.6 g/dL (14.0-18.0); MEAN CORPUSCULAR HEMOGLOBIN 27.3 pg (28.0-32.0); MEAN CORPUSCULAR VOLUME 88.5 fL (80.0-94.0); MEAN PLATELET VOLUME 8.2 fl (7.4-10.4); PLATELET 605 x1000/uL (130-400); RED BLOOD CELL COUNT 4.25 mill/uL (4.7-6.1); RED CELL DISTRIBUTION WIDTH 18.1 % (11.6-14.6)
[2020-07-27] MEDS: IRON SUCROSE COMPLEX 100 MG/5 ML ML IV SCH (09:43)
[2020-07-27] MEDS: ZINC SULFATE 220 MG ( 50 ) CAPSULE PO SCH (09:43)
[2020-07-27] MEDS: ASCORBIC ACID 500 MG TABLET PO SCH (09:44)
[2020-07-27] MEDS: AMIODARONE HCL 200 MG TABLET PO SCH (09:44)
[2020-07-27] MEDS: DEXTROSE 5% WATER 1,000 ML IV SCH (11:57)
[2020-07-27 13:29] LABS: PLATELET ESTIMATE INCREASED
[2020-07-27] MEDS: VANCOMYCIN 1 G PREMIX 200 ML IV SCH (17:05)
[2020-07-27] MEDS: IPRATROPIUM/ALBUTEROL 0.5-3(2.5)MG/3ML NEB NEB PRN (21:14)
[2020-07-28] VITALS (7 sets, daily range): BP systolic 107–161; BP diastolic 61–99
[2020-07-28] MEDS: DEXTROSE 5% WATER 1,000 ML IV SCH ×2 (00:22→14:19)
[2020-07-28] MEDS: BLOOD SUGAR DIAGNOSTIC STRIP TEST SCH ×4 (00:23→17:10)
[2020-07-28] MEDS: GUAIFENESIN 200MG/10ML SUGAR FREE UDC PO PRN ×2 (02:13→06:04)
[2020-07-28] MEDS: MORPHINE SULFATE 2 MG/ML CPJ (NOT FOR IM USE) IV PRN ×4 (05:50→18:25)
[2020-07-28] MEDS: INSULIN LISPRO 100 UNITS/ML SUBCUT SCH ×4 (06:00→17:13)
[2020-07-28] MEDS: ASCORBIC ACID 500 MG TABLET PO SCH ×2 (09:45→18:25)
[2020-07-28] MEDS: ZINC SULFATE 220 MG ( 50 ) CAPSULE PO SCH (09:45)
[2020-07-28] MEDS: AMIODARONE HCL 200 MG TABLET PO SCH (09:45)
[2020-07-28] MEDS: DILTIAZEM HCL 30MG TABLET PO SCH ×2 (15:44→18:00)
[2020-07-28] MEDS ORDERED: SODIUM CHLORIDE 0.9% 1,000 ML IV SCH (16:30)
[2020-07-28] MEDS ORDERED: DESMOPRESSIN ACETATE 4MCG/ML AMP IV SCH (16:30)
[2020-07-28] MEDS ORDERED: SODIUM CHLORIDE 0.9% 500 ML IV ONE (18:00)
[2020-07-28] MEDS ORDERED: METOCLOPRAMIDE HCL 10MG/2ML VIAL IV SCH (18:00)
== END 2020-07-28 21:45 | DRG 871 ==
LOC: ER 18:37 → 5EST 20:33 → EDBEDREQTM 20:35 → EDBEDREQ 20:35 → ENRESERV 22:51
PROVIDERS: ADMIT Internal Medicine; ATTEND Internal Medicine
PROC: 30233N1 Transfusion of Nonautologous Red Blood Cells into Peripheral Vein, Percutaneous Approach (ICD-10-PCS; 2020-07-22)
PROC: 02HV33Z Insertion of Infusion Device into Superior Vena Cava, Percutaneous Approach (ICD-10-PCS; 2020-07-25)
PROC: B548ZZA Ultrasonography of Superior Vena Cava, Guidance (ICD-10-PCS; 2020-07-25)
PROC: 0DP68UZ Removal of Feeding Device from Stomach, Via Natural or Artificial Opening Endoscopic (ICD-10-PCS; principal; 2020-07-26)
PROC: 0DH68UZ Insertion of Feeding Device into Stomach, Via Natural or Artificial Opening Endoscopic (ICD-10-PCS; 2020-07-26)
DX: A41.02 Sepsis due to Methicillin resistant Staphylococcus aureus (principal); G92 Toxic encephalopathy; N17.0 Acute kidney failure with tubular necrosis; E43 Unspecified severe protein-calorie malnutrition; I13.0 Hypertensive heart and chronic kidney disease with heart failure and stage 1 through stage 4 chronic kidney disease, or unspecified chronic kidney disease; I42.9 Cardiomyopathy, unspecified; I47.1 Supraventricular tachycardia; J84.9 Interstitial pulmonary disease, unspecified; N39.0 Urinary tract infection, site not specified; R47.01 Aphasia; K94.23 Gastrostomy malfunction; Z68.1 Body mass index [BMI] 19.9 or less, adult; E87.0 Hyperosmolality and hypernatremia; D50.9 Iron deficiency anemia, unspecified; E11.22 Type 2 diabetes mellitus with diabetic chronic kidney disease; E11.51 Type 2 diabetes mellitus with diabetic peripheral angiopathy without gangrene; E83.52 Hypercalcemia; E87.5 Hyperkalemia; F03.90 Unspecified dementia, unspecified severity, without behavioral disturbance, psychotic disturbance, mood disturbance, and anxiety; F20.9 Schizophrenia, unspecified; G40.909 Epilepsy, unspecified, not intractable, without status epilepticus; I50.9 Heart failure, unspecified; J44.9 Chronic obstructive pulmonary disease, unspecified; N18.9 Chronic kidney disease, unspecified; R13.12 Dysphagia, oropharyngeal phase; R65.20 Severe sepsis without septic shock; I27.20 Pulmonary hypertension, unspecified; K29.70 Gastritis, unspecified, without bleeding; L89.90 Pressure ulcer of unspecified site, unspecified stage; Z20.828 Contact with and (suspected) exposure to other viral communicable diseases; E88.09 Other disorders of plasma-protein metabolism, not elsewhere classified; D64.9 Anemia, unspecified; M25.40 Effusion, unspecified joint; K21.9 Gastro-esophageal reflux disease without esophagitis; M24.50 Contracture, unspecified joint; Z74.01 Bed confinement status; Z79.899 Other long term (current) drug therapy; Z86.14 Personal history of Methicillin resistant Staphylococcus aureus infection; Z86.73 Personal history of transient ischemic attack (TIA), and cerebral infarction without residual deficits; Z86.39 Personal history of other endocrine, nutritional and metabolic disease
CPT/HCPCS: 36415; 71045; 76700; 76937; 80048; 80053; 80202; 81003; 82270; 82550; 82553; 82607; 82746; 82962; 83036; 83540; 83550; 83605; 83735; 84100; 84134; 84145; 84484; 85014; 85018; 85025; 85049; 85384; 85651; 86140; 86850; 86900; 86920; 87077; 87426; 93005; 93306; 93970; 94640; 99291; C1725; J1815; J2185; J2250; J2270; J2543; J2597; J2765; J3010; J3370; J3480; J7030; J7040; J7060; J7070; P9016; P9047